=== PATIENT | female | born 1970 | race Caucasian/White ===

== ENCOUNTER → 2017-02-11 | Outpatient (CLI) | payer OTHER ==
--- NOTE | 2017-02-11 23:15 | ELECTROENCEPHALOGRAPH REPORT ---
REQUESTING PHYSICIAN: Derik Bravo MD CLINICAL DIAGNOSES: Spasms, question seizures. ELECTROENCEPHALOGRAM DIAGNOSIS: Essentially normal during wakefulness. DESCRIPTION OF TRACING: This EEG was performed in the laboratory and is of excellent technical quality with few or no muscle movement artifacts. Simultaneous video analysis of patient movement and behavior was obtained. Photic stimulation was performed. Hyperventilation was not. Drowsiness and light sleep were not recorded. During wakefulness, there is evidence for normal appearing background rhythm in the alpha range of up to 10 Hz of maximum frequency and 30 microvolts of maximum amplitude. This is maximum posterior head regions and bilaterally symmetrical. Polymorphic mid frequency theta activity of modest voltage is seen over all head regions without clear focal or regional predominance. Anterior head region maximum bilaterally symmetrical low voltage fast activity in the beta range is present. Photic stimulation provokes modest response at most flash frequencies. At no time during the waking tracing is there evidence for potentially epileptogenic activity in the form of polyspike or spike wave bursts, focal sharp waves and focal spikes. INTERPRETATION: This EEG is essentially normal during wakefulness without evidence for focal or generalized encephalopathy and without evidence for potentially epileptogenic activity.
== END | disposition home or self-care (01) ==
LOC: C.NEUR 14:20
PROVIDERS: ATTEND Family Medicine
DX: F10.20 Alcohol dependence, uncomplicated (principal)

== ENCOUNTER → 2017-12-23 | Outpatient (CLI) | payer OTHER ==
[~2017-12-23] MED LIST: HYDR-5688 PO
== END | disposition home or self-care (01) ==
LOC: C.RDSM 14:50
PROVIDERS: ATTEND Orthopaedic Surgery
DX: S42.301A Unspecified fracture of shaft of humerus, right arm, initial encounter for closed fracture (principal); X58.XXXA Exposure to other specified factors, initial encounter

== ENCOUNTER 2020-11-27 19:39 | Inpatient (IN) ==
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
[2020-11-27] MEDS ORDERED: MoRPHine SULFATE 4 MG/ML 1 ML CARP\\VIAL IV STA ×2 (20:14→21:20)
[2020-11-27] MEDS ORDERED: ONDANSETRON INJ 2 MG/ML 2 ML VIAL IV STA (20:14)
[2020-11-27] MEDS ORDERED: SODIUM CHLORIDE 0.9% 1000ML 500 ML IV ONE (20:35)
[2020-11-27 20:38] LABS: Basophils # (auto) 0.05 K/uL (0-0.2); Eosinophils # (auto) 0.11 K/uL (0-0.5); Eosinophils % (auto) 2.3 %; Hematocrit (blood only) 38.4 % (37-47); Hemoglobin 13.2 g/dL (12.0-16.0); Immature Granulocytes # (auto) 0.01 K/uL (0.00-0.02); Immature Granulocytes % (auto) 0.2 %; Lymphocytes # (auto) 1.16 K/uL (1.2-3.4); Lymphocytes % (auto) 23.9 %; Mean Corpuscular Hemoglobin 33.5 pg (25-34); Mean Corpuscular Hgb Conc 34.4 g/dL (32-36); Mean Corpuscular Volume 97.5 fL (80-100); Mean Platelet Volume 10.2 fL (7.4-10.4); Monocytes # (auto) 0.46 K/uL (0.11-0.59); Monocytes % (auto) 9.5 %; Neutrophils # (auto) 3.07 K/uL (1.4-6.5); Neutrophils % (auto) 63.1 %; Platelet Count 128 K/uL (130-400); RDW Standard Deviation 46.4 fL (36.4-46.3); Red Blood Count 3.94 M/uL (4.2-5.4); White Blood Count 4.86 K/uL (4.8-10.8)
[2020-11-27 20:51] LABS: INR 1.1 (0.9-1.1); Partial Thromboplastin Ratio 1.1; Partial Thromboplastin Time 29.8 Seconds (21.0-31.0); Prothrombin Time 10.9 Seconds (9.0-12.0)
[2020-11-27 20:58] LABS: Albumin Level 4.1 gm/dl (3.4-5.0); Calcium 9.2 mg/dl (8.5-10.1); Creatinine Clr Calc Pharmacy 94.3 ml/min; Est GFR (African American) 132.6 ml/min; Est GFR (Non-African American) 114.4 ml/min; Potassium 3.8 mmol/L (3.5-5.1)
[2020-11-27 21:01] LABS: Bilirubin,Total 0.4 mg/dl (0.2-1); Globulin 4.3 gm/dl (2.5-4.0); Total Protein 8.4 gm/dl (6.4-8.2)
[2020-11-27 22:26] LABS: Appearance Urine Clear (Clear); Bacteria Urine Automated Negative (Negative); Bilirubin Urine Negative (Negative); Blood Urine Negative (Negative); Color Urine Yellow; Glucose Urine UA Negative (Negative); Ketones Urine Negative (Negative); Leukocyte Esterase Urine Negative (Negative); Nitrite Urine Negative (Negative); Protein Urine 1+ (Negative); RBC Urine Automated 0-4 /hpf (0-4); Specific Gravity Urine 1.006 (1.000-1.030); Urobilinogen Urine Negative (Negative); WBC Urine Automated 0 /hpf (0-5)
[2020-11-28] MEDS ORDERED: HYDROmorphone INJ 0.5 MG/0.5 ML SYR ONE (00:26)
[2020-11-28] MEDS ORDERED: ATIVAN IV ALCOHOL WITHDRAWL IV PRN (01:01)
[2020-11-28] MEDS ORDERED: XOPENEX/ATROVENT 1.25mg/0.5MG NEB COMBO NEB PRN (01:01)
[2020-11-28] MEDS ORDERED: GABAPENTIN 800MG ALCOHOL WITHDRAWAL LOAD PO STA (01:01)
[2020-11-28] MEDS ORDERED: IPRATROPIUM BROMIDE NEB SOLN 0.02% 2.5 ML VIAL INH PRN (01:01)
[2020-11-28] MEDS ORDERED: POLYETHYLENE (MIRALAX) 17 GM PACK PO PRN (01:01)
[2020-11-28] MEDS ORDERED: LORazepam 1 MG/2 ML VIAL IV PRN (01:01)
[2020-11-28] MEDS ORDERED: LEVALBUTEROL 1.25MG/0.5ML NEB INH PRN (01:01)
[2020-11-28] MEDS ORDERED: ONDANSETRON INJ 2 MG/ML 2 ML VIAL IV PRN ×3 (01:01→14:54)
[2020-11-28] MEDS ORDERED: NITROGLYCERIN SL 0.4 MG/TAB TAB SL PRN (01:01)
[2020-11-28] MEDS ORDERED: LORazepam 3 MG/6 ML VIAL IV PRN (01:01)
[2020-11-28] MEDS ORDERED: GABAPENTIN 400 MG CAP PO ONE (01:15)
[2020-11-28] MEDS ORDERED: MULTI-VITAMIN INFUSION 10 ML, THIAMINE HCL 100 MG, FOLIC ACID 1 MG in SODIUM CHLORIDE 0... IV ONE (01:30)
[2020-11-28] MEDS: busPIRone 5 MG TAB PO SCH ×3 (01:45→21:03)
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
[2020-11-28] MEDS: HYDROmorphone INJ 0.5 MG/0.5 ML SYR IV PRN ×3 (03:21→22:35)
[2020-11-28] MEDS: D5W AND NSS 1,000 ML IV SCH ×2 (04:17→15:20)
[2020-11-28 06:06] LABS: Amphetamines+Metham, Urine Neg (Neg); Barbiturates, Urine Neg (Neg); Benzodiazepine, Urine Neg (Neg); Cocaine, Urine Neg (Neg); MDMA (Ecstacy), Urine Neg (Neg); Methadone, Urine Neg (Neg); Opiate, Urine Pos (Neg); Phencyclidine, Urine Neg (Neg)
[2020-11-28 06:45] LABS: Basophils # (auto) 0.02 K/uL (0-0.2); Basophils % (auto) 0.2 %; Eosinophils # (auto) 0.01 K/uL (0-0.5); Eosinophils % (auto) 0.1 %; Hematocrit (blood only) 33.8 % (37-47); Hemoglobin 11.3 g/dL (12.0-16.0); Immature Granulocytes # (auto) 0.03 K/uL (0.00-0.02); Immature Granulocytes % (auto) 0.3 %; Lymphocytes # (auto) 0.75 K/uL (1.2-3.4); Lymphocytes % (auto) 7.4 %; Mean Corpuscular Hemoglobin 33.2 pg (25-34); Mean Corpuscular Hgb Conc 33.4 g/dL (32-36); Mean Corpuscular Volume 99.4 fL (80-100); Mean Platelet Volume 10.1 fL (7.4-10.4); Monocytes # (auto) 0.83 K/uL (0.11-0.59); Monocytes % (auto) 8.2 %; Neutrophils # (auto) 8.54 K/uL (1.4-6.5); Neutrophils % (auto) 83.8 %; Platelet Count 113 K/uL (130-400); RDW Coefficient of Variation 13.1 % (11.5-14.5); RDW Standard Deviation 47.9 fL (36.4-46.3); White Blood Count 10.18 K/uL (4.8-10.8)
[2020-11-28 06:51] LABS: Albumin Level 3.7 gm/dl (3.4-5.0); BUN Creatinine Ratio 7.6 (10-20); Bilirubin Direct 0.2 mg/dl (0-0.2); Calcium 8.3 mg/dl (8.5-10.1); Creatinine Clr Calc Pharmacy 102.6 ml/min; Est GFR (African American) 139.5 ml/min; Est GFR (Non-African American) 120.4 ml/min; Magnesium 1.6 mg/dl (1.8-2.4); Potassium 3.6 mmol/L (3.5-5.1)
[2020-11-28 06:54] LABS: Bilirubin,Total 0.6 mg/dl (0.2-1); Total Protein 7.5 gm/dl (6.4-8.2)
--- NOTE | 2020-11-28 07:30 | Anesthesiology Consultation ---
Date of Service November 28, 2020 Assessment & Plan (1) Encounter for pre-operative examination: Chart Review Chart Review: Acceptable Risk for Surgery History Surgery Operation Date: 11/28/20 11:55 Proposed Procedures p Left Short Troch Nailing - Aries Reyes DO Height/Weight Height: 5 ft 1 in Weight: 40.1 kg Allergies Allergy/AdvReac Type Severity Reaction Status Date / Time No Known Allergies Allergy Verified 11/27/20 19:41 Medications Home Medications Medication Instructions Recorded Confirmed Last Taken budesonide-formoterol [Symbicort] 1 puff INHALATION UD 11/27/20 11/27/20 Unknown buspirone 10 mg PO BID 11/27/20 11/27/20 Unknown montelukast 10 mg PO DAILY 11/27/20 11/27/20 Unknown Active Medications Generic Name Dose Route Start Last Admin Trade Name Freq PRN Reason Stop Dose Admin Buspirone HCl 10 mg 11/28/20 01:01 11/28/20 01:45 Buspirone 5 Mg Tab PO 12/28/20 01:00 10 mg BID ANABELLE Administration Hydromorphone HCl 0.5 mg 11/28/20 01:01 11/28/20 03:21 Hydromorphone Inj 0.5 Mg/0.5 Ml Syr IV 12/12/20 01:00 0.5 mg Q3H PRN Administration Pain Dextrose/Sodium Chloride 1,000 mls @ 100 mls/hr 11/28/20 03:30 11/28/20 04:17 D5w And Nss IV 12/28/20 03:29 100 mls/hr .Q10H ANABELLE Administration Past Medical History Medical History (Updated 11/28/20 @ 07:29 by Marvel Zhou MD) Alcohol abuse Thrombocytopenia Past Surgical History Surgical History (Updated 11/28/20 @ 07:29 by Marvel Zhou MD) No significant past surgical history Social History Smoking Status: Heavy tobacco smoker tobacco type: cigarettes Do You Dip or Chew Tobacco: No Hx Alcohol Use: Yes Alcohol type: beer alcohol intake frequency: 3 or more drinks per day Hx Substance Use: No Physical Exam Vital Signs Last Vital Signs Temp 36.8 C 11/28/20 03:45 Pulse 98 H 11/28/20 03:45 Resp 20 11/28/20 03:45 BP 124/73 11/28/20 03:45 Pulse Ox 95 11/28/20 03:45 Testing Laboratory Results 11/28/20 05:56 11/28/20 05:56 PT 10.9 Seconds (9.0-12.0) 11/27/20 20:25 INR 1.1 (0.9-1.1) 11/27/20 20:25 APTT 29.8 Seconds (21.0-31.0) 11/27/20 20:25 Urine Color Yellow 11/27/20 21:40 Urine Appearance Clear (Clear) 11/27/20 21:40 Urine pH 5.0 (4.5-7.5) 11/27/20 21:40 Ur Specific [place] 1.006 (1.000-1.030) 11/27/20 21:40 Urine Protein 1+ (Negative) H 11/27/20 21:40 Urine Glucose (UA) Negative (Negative) 11/27/20 21:40 Urine Ketones Negative (Negative) 11/27/20 21:40 Urine Nitrite Negative (Negative) 11/27/20 21:40 Ur Leukocyte Esterase Negative (Negative) 11/27/20 21:40 Urine WBC (Auto) 0 /hpf (0-5) 11/27/20 21:40 Urine RBC (Auto) 0-4 /hpf (0-4) 11/27/20 21:40 U Hyaline Cast (Auto) 1-5 /lpf (0-5) 11/27/20 21:40 U Epithel Cells (Auto) 10-20 /lpf (0-5) H 11/27/20 21:40 Urine Bacteria (Auto) Negative (Negative) 11/27/20 21:40 Blood Type O Positive 11/27/20 20:25 Antibody Screen NEGATIVE 11/27/20 20:25
[2020-11-28 07:35] LABS: Folate (Folic Acid) > 20.00 ng/ml (>5.38); Vitamin B12 555 pg/ml (193-986)
--- NOTE | 2020-11-28 07:37 | XRay Report ---
XR hip LT 2V w pelvis CLINICAL HISTORY: left hip pain. Left hip injury. COMPARISON STUDY: None. FINDINGS: Angulated and slightly displaced intertrochanteric fracture within the proximal left femur. No dislocation. The right hip and pelvic bones appear intact. IMPRESSION: Intertrochanteric fracture within the proximal left femur. ACT 112: Negative or not required by law. Electronically signed by: Guero Rico M.D. 11/28/2020 7:36 AM
--- NOTE | 2020-11-28 07:41 | XRay Report ---
XR chest 1V portable HISTORY: Preop. Left hip fracture. History of COPD. COMPARISON: Chest 12/08/2015. FINDINGS: The lungs are clear. The heart is normal in size. No pneumothorax. No pleural effusions. Th e lungs are mildly hyperexpanded. IMPRESSION: No acute process. ACT 112: Negative or not required by law. Electronically signed by: Guero Rico M.D. 11/28/2020 7:39 AM
[2020-11-28] MEDS ORDERED: ceFAZolin 1000MG 1,000 MG/7.5 ML SYR IV SCH (09:30)
[2020-11-28] MEDS: GABAPENTIN 400 MG CAP PO SCH ×3 (09:43→21:39)
[2020-11-28] MEDS: MONTELUKAST SODIUM 10 MG TABLET PO SCH (09:44)
[2020-11-28] MEDS: FLUTICASONE/VILANTEROL 100/25MCG 14 PUFFS/INHALER INH SCH (09:44)
[2020-11-28] MEDS: FOLIC ACID 1 MG in SYRINGE 9.8 ML IV SCH (09:45)
[2020-11-28] MEDS: THIAMINE HCL 100 MG in SYRINGE 9 ML IV SCH (09:45)
[2020-11-28] MEDS: CEROVITE ADV FORMULA TAB PO SCH (09:45)
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
[2020-11-28] MEDS ORDERED: fentaNYL citrate 100 MCG/2 ML VIAL ONE (11:36)
[2020-11-28] MEDS ORDERED: MIDAZOLAM HCL 1 MG/ML 2ML VIAL ONE (11:36)
[2020-11-28] MEDS ORDERED: LIDOCAINE 2% 2 ML VIAL/AMP(20MG/ML) INFIL ONE (11:36)
[2020-11-28] MEDS ORDERED: PROPOFOL IV EMULSION 10 MG/ML 20 ML VIAL IV ONE (11:37)
[2020-11-28] MEDS ORDERED: ROCURONIUM BROMIDE 10 MG/ML 5 ML VIAL IV ONE ×2 (11:37→13:11)
[2020-11-28] MEDS ORDERED: LIDOCAINE/EPINEPHRINE 1% 20 ML VIAL ONE (12:05)
[2020-11-28] MEDS ORDERED: BUPIVACAINE 0.5 % 5 MG/1 ML MPF 30ML VIAL ONE (12:05)
[2020-11-28] MEDS ORDERED: ONDANSETRON INJ 2 MG/ML 2 ML VIAL ONE (13:10)
[2020-11-28] MEDS ORDERED: LARYING-O-JET KIT (LTA) ONE (13:10)
[2020-11-28] MEDS ORDERED: DEXAMETHASONE SOD INJ 4 MG/ML VIAL ONE (13:11)
[2020-11-28] MEDS ORDERED: PHENYLEPHRINE 100MCG/ML 5ML SYR ONE (13:11)
[2020-11-28] MEDS ORDERED: GLYCOPYRROLATE 0.2 MG/ML VIAL ONE (13:38)
[2020-11-28] MEDS ORDERED: NEOSTIGMINE METHYLSULFATE 1 MG/ML 10ML VIAL ONE (13:38)
--- NOTE | 2020-11-28 13:52 | Post Operative Brief Note ---
Immediate Post Op Note v1 Date of Surgery November 28, 2020 Pre & Post Diagnosis Operation Date: 11/28/20 09:40 <No data on this case meets the specified criteria> Operation Date: 11/28/20 11:55 Pre-Op Diagnosis: Left Intratrochanteric Hip Fracture Post-Op Diagnosis: Left Intratrochanteric Hip Fracture I identified the patient and participated in the time-out.: Yes Procedure Operation Date: 11/28/20 09:40 <No data on this case meets the specified criteria> Operation Date: 11/28/20 11:55 Actual Procedures p Insertion of Short Intratrochanteric Nail Left Hip Fracture(Left) - Aries Reyes DO Surgeon Endy Jaquez MD Slot Floor Supervisor VENITA Lee PA-C (No fellow avail) Estimated Blood Loss 25 Findings Consistent with Post-Op Diagnosis Fluids 1000 cc Drains Castillo Catheter Anesthesia Type General Complications none
--- NOTE | 2020-11-28 13:54 | Operative Report ---
Post Operative Report Pre & Post Diagnosis Operation Date: 11/28/20 09:40 <No data on this case meets the specified criteria> Operation Date: 11/28/20 11:55 Pre-Op Diagnosis: Left Intratrochanteric Hip Fracture Post-Op Diagnosis: Left Intratrochanteric Hip Fracture I identified the patient and participated in the time-out.: Yes Procedure Operation Date: 11/28/20 09:40 <No data on this case meets the specified criteria> Operation Date: 11/28/20 11:55 Actual Procedures p Insertion of Short Intratrochanteric Nail Left Hip Fracture(Left) - Aries Reyes DO Surgeon Endy Jaquez MD Production Engineer VENITA Lee PA-C (No fellow avail) Estimated Blood Loss 25 Findings See Below Displaced 3-part left intratrochanteric hip fracture Specimens n/a Drains Castillo Anesthesia Type General Complications none Indications The patient is a 50 year old female who sustained a left hip fracture from a ground level fall. The patients treatment options of conservative versus surgical intervention were discussed. Since the patient was an ambulatory prior to the injury and to avoid the risks of bed sores, pulmonary complications, and to give the best chance for ambulation, I recommended surgery. The patient understands the risks of surgery, which include but are not limited to: bleeding, infection, re-operation, damage to nerves and arteries, continued pain, failure of the hardware, mal-union, non-union, DVT, and . In addition the patient is aware of the 20-30% morbidity associated with hip fracture for up to 1 year following a hip fracture. The patient understands all of these instructions and explanations, all of their questions have been satisfactorily addressed. The patient has elected to proceed with surgery and the informed consent was signed. Description of Procedure VENITA Lee PA-C is assisting with positioning and closure due to fellow not available. IMPLANTS: 1) 11 MM SHORT TROCH NAIL (SYNTHES). 2) 11 X 95 MM HELICAL SCREW. 3) 5 X 36 MM LOCKING SCREW. PROCEDURE: The patient was taken to the Operating Room and placed in the supine position on the fracture table after spinal anesthesia was administered. A multidisciplinary time-out was performed identifying my initials on the left lower limb as the correct and operative limb. Prior to the incision being made, 1 gram of intravenous Ancef was given. Fluoroscopy was brought in to ensure adequate x-rays images could be obtained. A reduction was performed with traction, adduction, and internal rotation of the operative limb. Once this was confirmed with Fluro, the left lower extremity was prepped in the standard fashion. The trochanter was marked as was the planned incision and trajectory of the helical screw. The incisions were injected with a 50:50 mixture of 1% Lidocaine plain and 0.5% Bupivacaine with epinephrine for a total of 10cc. The planned incision proximal to the greater trochanter was made and carried down through the Tensor Fascia Cary to expose the tip of the greater trochanter and the starting position. A starting guide wire was placed and the starting reamer was used to create the entry hole for the short implant. A size 11 was selected. The implant was then inserted without difficulty. Small second and third incisions were made for placement of the helical blade and distal locking screw. These were placed through the aiming guide in the standard fashion. The Helical blade was locked in place. The traction was released. Final x-rays were obtained showing TAD of less than 25mm. The wounds were copiously irrigated. The Tensor Fascia Cary was closed with 0 Vicryl. The subcutaneous tissue was closed with 3-0 Vicryl. The skin was closed with ZipLine and Shield. The incisions were covered with 4x4s and Tegaderm. The patient was transfer to her hospital bed and taken to the PACU in stable condition. The sponge and needle counts were correct. POST-OP INSTRUCTIONS: The patient was admitted to Telemetry. The patient will be WBAT with a walker. The patient will be seen by PT/OT. Her labs will be checked in the am. DVT prophylaxis will be with TEDs, mechanical devices and ASA 81 mg PO BID for 6 weeks. I attest to the content of the Intraoperative Record and any orders documented therein. Any exceptions are noted below.
[2020-11-28] MEDS ORDERED: KETOROLAC 30 MG/ML VIAL ONE (13:56)
[2020-11-28] MEDS ORDERED: NALOXONE HCL 0.4 MG/1 ML VIAL/CARP IV PRN (14:23)
--- NOTE | 2020-11-28 14:23 | Operative Report ---
Post Operative Report Pre & Post Diagnosis Operation Date: 11/28/20 09:40 <No data on this case meets the specified criteria> Operation Date: 11/28/20 11:55 Pre-Op Diagnosis: Left Intratrochanteric Hip Fracture Post-Op Diagnosis: Left Intratrochanteric Hip Fracture I identified the patient and participated in the time-out.: Yes Procedure Operation Date: 11/28/20 09:40 <No data on this case meets the specified criteria> Operation Date: 11/28/20 11:55 Actual Procedures p Insertion of Short Intratrochanteric Nail Left Hip Fracture(Left) - Aries Reyes DO Surgeon Endy Jaquez MD Estate Planning Attorney VENITA Lee PA-C (No fellow avail) Estimated Blood Loss 25 Findings Consistent with Post-Op Diagnosis Specimens none Complications none Disposition Accompanied Patient To Recovery: No Disposition: Recovery Room Description of Procedure I was present during the entire case assisting with positioning, prepping, draping, wound retraction, wound closure and dressing application. No fellow present. Please see Dr. Jaquez procedure note for specifics of the case. I attest to the content of the Intraoperative Record and any orders documented therein. Any exceptions are noted below.
--- NOTE | 2020-11-28 14:27 | Fluoroscopy Report ---
FL hip LT 2-3V HISTORY: 50 years-old Female LEFT TROCHNAIL acute intertrochanteric fracture of the left femur COMPARISON: Pelvis and left hip radiographs 11/27/2020 TECHNIQUE: 3 spot fluoroscopic images of the left hip were obtained utilizing 77.6 seconds fluoroscop y time FINDINGS: Status post placement of an intratrochanteric canal with medullary janet and distal cannulated screw fi xating the acute intertrochanteric fracture of the left femur. There is improved near-anatomic alignm ent. No unexpected opaque foreign body. IMPRESSION: Fluoroscopic assistance as above. ACT 112: Negative or not required by law. The above report was generated using voice recognition software. It may contain grammatical, syntax o r spelling errors. Electronically signed by: Chan Burns M.D. 11/28/2020 2:25 PM
[2020-11-28] MEDS ORDERED: SODIUM CHLORIDE 0.9% 1000ML 1,000 ML IV SCH (14:30)
[2020-11-28] MEDS ORDERED: ALUMINUM/MAGNESIUM SUSP 30 ML UDC PO PRN (14:31)
[2020-11-28] MEDS ORDERED: METOCLOPRAMIDE HCL INJ 5 MG/ML 2 ML VIAL IV PRN (14:31)
[2020-11-28] MEDS ORDERED: fentaNYL citrate 100 MCG/2 ML VIAL IV PRN (14:54)
[2020-11-28] MEDS ORDERED: ePHEDrine sulfate 50 MG/ML AMP IV PRN (14:54)
[2020-11-28] MEDS ORDERED: ATROPINE SULFATE 0.1 MG/ML 10ML SYR IV PRN (14:54)
--- NOTE | 2020-11-28 14:55 | Anesthesiology Progress Note ---
Date of Service November 28, 2020 Anesthesia Post Procedure Vital Signs Vital Signs: Temp Pulse Pulse Pulse Resp BP BP 11/28/20 14:50 36.6 C 75 14 146/88 H 11/28/20 14:40 75 14 146/83 H 11/28/20 14:30 75 14 147/85 H 11/28/20 14:21 36.5 C 73 14 145/89 H 11/28/20 11:54 37.1 C 91 H 17 136/82 11/28/20 11:39 38.6 C H 104 H 20 151/86 H 11/28/20 08:00 91 H 11/28/20 07:53 37.3 C 97 H 17 145/79 H 11/28/20 03:45 36.8 C 98 H 20 124/73 11/28/20 03:14 90 11/28/20 01:04 36.9 C 103 H 18 98/58 L 11/28/20 01:01 36.9 C 103 H 18 98/58 L 11/28/20 00:33 82 92/50 L 11/27/20 23:55 83 87/55 L 11/27/20 22:18 79 16 94/56 L 11/27/20 21:08 86 18 126/72 11/27/20 20:36 89/57 L 11/27/20 19:50 37.2 C 101 H 24 157/94 H Pulse Ox 11/28/20 14:50 97 11/28/20 14:40 97 11/28/20 14:30 100 11/28/20 14:21 100 11/28/20 11:54 94 11/28/20 11:39 92 11/28/20 08:00 11/28/20 07:53 95 11/28/20 03:45 95 11/28/20 03:14 11/28/20 01:04 92 11/28/20 01:01 92 11/28/20 00:33 100 11/27/20 23:55 100 11/27/20 22:18 100 11/27/20 21:08 96 11/27/20 20:36 11/27/20 19:50 Pain Intensity Left Hip: Pain Intensity: 10 Transfer of Care Handoff Completed per policy Notes Mental Status: alert / awake / arousable and participated in evaluation Patient Amnestic to Procedure: Yes Nausea / Vomiting: adequately controlled Pain: adequately controlled Airway Patency, RR, SpO2: stable & adequate BP & HR: stable & adequate Hydration State: stable & adequate Anesthetic Complications: no major complications apparent and Pt Satisfied with anesthetic care
--- NOTE | 2020-11-28 15:07 | XRay Report ---
XR hip LT min 2V HISTORY: 50 years-old Female Post-Operative implant position acute intertrochanteric fracture of the left femur COMPARISON: Pelvis and left hip radiographs 11/27/2020 TECHNIQUE: 2 views of the left hip FINDINGS: Status post placement of an intratrochanteric nail with medullary janet fixating the acute intertrochan teric fracture. The lesser trochanteric fracture fragment is mildly displaced medially. Mild lateral displacement of the femoral shaft has improved from comparison. Expected postoperative soft tissue sw elling with deep tissue air. No unexpected opaque foreign body. IMPRESSION: Status post ORIF of the acute intertrochanteric fracture of the left femur. ACT 112: Negative or not required by law. The above report was generated using voice recognition software. It may contain grammatical, syntax o r spelling errors. Electronically signed by: Chan Burns M.D. 11/28/2020 3:06 PM
--- NOTE | 2020-11-28 17:40 | Electrocardiogram Report ---
Test Reason : Blood Pressure : / mmHG Vent. Rate : 087 BPM Atrial Rate : 087 BPM P-R Int : 154 ms QRS Dur : 092 ms QT Int : 378 ms P-R-T Axes : 075 087 060 degrees QTc Int : 454 ms Poor data quality, interpretation may be adversely affected Normal sinus rhythm Possible Left atrial enlargement Incomplete right bundle branch block Nonspecific T wave abnormality Abnormal ECG When compared with ECG of 08-DEC-2015 09:27, Incomplete right bundle branch block is now Present Confirmed by Gaurang Stevens ([id number]) on 11/28/2020 5:39:48 PM Referred By: REFERRED SELF Confirmed By:Chris Stevens
--- NOTE | 2020-11-28 17:41 | Electrocardiogram Report ---
Test Reason : Blood Pressure : / mmHG Vent. Rate : 097 BPM Atrial Rate : 097 BPM P-R Int : 142 ms QRS Dur : 082 ms QT Int : 368 ms P-R-T Axes : 080 070 057 degrees QTc Int : 467 ms Normal sinus rhythm Incomplete right bundle branch block Nonspecific ST abnormality Abnormal ECG When compared with ECG of 27-NOV-2020 21:01, (unconfirmed) No significant change was found Confirmed by Gaurang Stevens ([id number]) on 11/28/2020 5:41:40 PM Referred By: REFERRED SELF Confirmed By:Chris Stevens
--- NOTE | 2020-11-28 18:00 | Hospitalist Progress Note ---
Date of Service November 28, 2020 Assessment & Plan (1) Fracture of hip, left, closed: s/p ORIF of left hip tolerated the procedure well appreciate input from Orthopedics cont to monitor H&H in am to assess acute blood loss anemia post op ordered for PT/OT (2) Alcohol abuse: admitted with ETOH intoxication , blood alcohol level > 200 , on gabapentin ETOH withdrawl protocol high risk for severe ETOH withdrwal /DT - monitor in PCU Admission and Anticipated Discharge Date Admission Date: November 27, 2020 Subjective follow up visit for left hip fracture pt underwent left hip ORIF surgery seen at bedside post op still groggy from anesthesia vitals stable , on 2 L o2 via nasal canula for post op status afebrile patient wakes up to voice , asks for dinner tray as she is hungry no sign of agitation or confusion , no s/s of ETOH withdrawal Review of Systems Review of Systems: All systems reviewed & are unremarkable except as noted in HPI & below Physical Exam Constitutional: WD/WN, vitals as above + thin Eyes: + anicteric sclerae ENMT: external ear and nose normal, oropharynx normal Neck: normal visual inspection Respiratory: normal respiratory effort, lungs clear to auscultation Cardiovascular: RRR, no murmur, no edema Gastrointestinal (Abdomen): Inspection/Auscultation: normal bowel sounds Percussion/Palpation: abdomen soft; abdomen nontender Musculoskeletal: Hip: + hip abnormal to inpsection (left hip fracture s/p surgery ) Neurologic: PERRL, EOMI, accommodation nl, no face palsy, no dysarthria Psychiatric: Orientation: oriented to person and oriented to place; + not alert (sedation due to post op status , wakes up to voice ) Results & Data Results & Data ([facility]) Vital Signs (Past 12 Hours) Vital Signs Temp Pulse Pulse Pulse Resp BP Pulse Ox 11/28/20 17:00 96 H 11/28/20 16:21 75 16 127/85 96 11/28/20 15:42 76 16 139/86 98 11/28/20 15:15 36.6 C 71 16 136/85 100 11/28/20 14:50 36.6 C 75 14 146/88 H 97 11/28/20 14:40 75 14 146/83 H 97 11/28/20 14:30 75 14 147/85 H 100 11/28/20 14:24 11/28/20 14:21 36.5 C 73 14 145/89 H 100 11/28/20 11:54 37.1 C 91 H 17 136/82 94 11/28/20 11:39 38.6 C H 104 H 20 151/86 H 92 11/28/20 08:00 91 H 11/28/20 07:53 37.3 C 97 H 17 145/79 H 95 Pulse Ox 11/28/20 17:00 11/28/20 16:21 11/28/20 15:42 11/28/20 15:15 11/28/20 14:50 11/28/20 14:40 11/28/20 14:30 11/28/20 14:24 92 11/28/20 14:21 11/28/20 11:54 11/28/20 11:39 11/28/20 08:00 11/28/20 07:53 (1) Fracture of hip, left, closed Encounter type: initial encounter Qualified Code(s): S72.002A - Fracture of unspecified part of neck of left femur, initial encounter for closed fracture
[2020-11-28] MEDS: DOCUSATE SODIUM 100 MG CAP PO SCH (21:04)
[2020-11-28] MEDS: oxyCODONE HCL SOLN 5 MG/5 ML UDC PO PRN (21:04)
[2020-11-28] MEDS: ASPIRIN 81 MG ECTAB PO SCH (21:39)
[2020-11-29] MEDS: oxyCODONE HCL SOLN 5 MG/5 ML UDC PO PRN ×3 (06:15→19:40)
[2020-11-29] MEDS: GABAPENTIN 400 MG CAP PO SCH ×2 (06:16→13:49)
[2020-11-29 06:30] LABS: Hematocrit (blood only) 25.5 % (37-47); Hemoglobin 8.5 g/dL (12.0-16.0); Mean Corpuscular Hemoglobin 33.1 pg (25-34); Mean Corpuscular Hgb Conc 33.3 g/dL (32-36); Mean Corpuscular Volume 99.2 fL (80-100); RDW Coefficient of Variation 12.9 % (11.5-14.5); RDW Standard Deviation 46.7 fL (36.4-46.3); Red Blood Count 2.57 M/uL (4.2-5.4); White Blood Count 8.44 K/uL (4.8-10.8)
[2020-11-29 06:54] LABS: Basophils # (auto) 0.01 K/uL (0-0.2); Basophils % (auto) 0.1 %; Eosinophils # (auto) 0.01 K/uL (0-0.5); Eosinophils % (auto) 0.1 %; Immature Granulocytes # (auto) 0.02 K/uL (0.00-0.02); Immature Granulocytes % (auto) 0.2 %; Lymphocytes # (auto) 1.59 K/uL (1.2-3.4); Lymphocytes % (auto) 18.8 %; Mean Platelet Volume 10.6 fL (7.4-10.4); Monocytes % (auto) 10.7 %; Neutrophils # (auto) 5.91 K/uL (1.4-6.5); Neutrophils % (auto) 70.1 %; Platelet Count 74 K/uL (130-400); Platelet Estimate Decreased (Normal)
[2020-11-29 07:16] LABS: BUN Creatinine Ratio 10.1 (10-20); Calcium 8.6 mg/dl (8.5-10.1); Creatinine Clr Calc Pharmacy 86.3 ml/min; Est GFR (African American) 125.4 ml/min; Est GFR (Non-African American) 108.2 ml/min; Potassium 3.6 mmol/L (3.5-5.1)
[2020-11-29] MEDS: THIAMINE HCL 100 MG in SYRINGE 9 ML IV SCH (08:39)
[2020-11-29] MEDS: FOLIC ACID 1 MG in SYRINGE 9.8 ML IV SCH (08:39)
[2020-11-29] MEDS: HYDROmorphone INJ 0.5 MG/0.5 ML SYR IV PRN (08:40)
[2020-11-29] MEDS: busPIRone 5 MG TAB PO SCH ×2 (08:41→20:32)
[2020-11-29] MEDS: DOCUSATE SODIUM 100 MG CAP PO SCH ×2 (08:41→20:31)
[2020-11-29] MEDS: ASPIRIN 81 MG ECTAB PO SCH ×2 (08:41→20:32)
[2020-11-29] MEDS: CEROVITE ADV FORMULA TAB PO SCH (08:41)
[2020-11-29] MEDS: MONTELUKAST SODIUM 10 MG TABLET PO SCH ×3 (08:41→20:32)
[2020-11-29] MEDS: FLUTICASONE/VILANTEROL 100/25MCG 14 PUFFS/INHALER INH SCH (08:42)
[2020-11-29] MEDS ORDERED: Nursing to Pharmacy Communication SCH (10:00)
--- NOTE | 2020-11-29 10:04 | Orthopedic Progress Note ---
Date of Service November 29, 2020 Assessment & Plan (1) Fracture of right hip requiring operative repair: POD # 1 s/p IM rodding left hip fracture. Weightbearing as tolerated with walker assistance PT/OT Discharge planning with case management Ice with E Z wrap Pain control with p.o. medication DVT prophylaxis with aspirin 81 mg PO BID for 6 weeks, JANICE stockings for 3 weeks and SCDs while in hospital Primary care per medicine service We will continue to follow while an inpatient I, Dr. Jaquez, saw and examined the patient and discussed the management with my PA. I reviewed my PAs note and agree with the documented findings and the plan of care I developed. Admission and Anticipated Discharge Date Admission Date: November 27, 2020 Subjective This 50-year-old female is day 1 status post Intertrochanteric nailing of left femoral neck fracture. Patient states that her pain is only moderately alleviated with oral pain medication. She complains of most pain in her groin area. She states she is unable to lift her leg but has been able to transition from her bed to the bathroom with difficulty and assistance. She states that last night she was nauseated but that is resolved with some medication that she was provided. She denies chest pain, shortness of breath, fever, chills, sweats, lethargy or numbness or tingling in her left lower extremity. Review of Systems Review of Systems: All systems reviewed & are unremarkable except as noted in Subjective Physical Exam Physical Exam: Left hip: Dressings are clean dry and intact. Patient is unable to perform an active straight leg raise test but has no pain with passive elevation. Active knee range of motion is from 0 to 70 degrees and passive range of motion from 0-90 causes no pain. Patient is able to actively dorsi and plantarflex her foot. Her calf is soft supple and nontender to palpation. She does have tenderness to palpation over the groin and circumferentially around the incision sites. She is able to move the digits in all of her toes and depict light sensation to touch over the pads of these digits. She is neurovascularly intact in left lower extremity. Peripheral pulses 2+. Capillary fill is less than 2 seconds. Results & Data ([facility]) Vital Signs (Past 12 Hours) Vital Signs Temp Pulse Pulse Resp BP Pulse Ox 11/29/20 08:21 37.0 C 108 H 18 89/58 L 94 11/29/20 07:54 93 H 11/29/20 03:41 37.5 C 96 H 18 104/57 L 96 11/28/20 23:24 36.9 C 82 18 93/60 L 94 Laboratory Results 11/29/20 11/29/20 11/28/20 Range/Units 05:48 05:48 12:14 WBC 8.44 (4.8-10.8) K/uL RBC 2.57 L (4.2-5.4) M/uL Hgb 8.5 L (12.0-16.0) g/dL Hct 25.5 L (37-47) % MCV 99.2 (80-100) fL MCH 33.1 (25-34) pg MCHC 33.3 (32-36) g/dL RDW Std Deviation 46.7 H (36.4-46.3) fL RDW Coeff of [place]oy 12.9 (11.5-14.5) % Plt Count 74 L (130-400) K/uL MPV 10.6 H (7.4-10.4) fL Immature Gran % (Auto) 0.2 % Neut % (Auto) 70.1 % Lymph % (Auto) 18.8 % [place] % (Auto) 10.7 % Eos % (Auto) 0.1 % Baso % (Auto) 0.1 % Neut # (Auto) 5.91 (1.4-6.5) K/uL Lymph # (Auto) 1.59 (1.2-3.4) K/uL [place] # (Auto) 0.90 H (0.11-0.59) K/uL Eos # (Auto) 0.01 (0-0.5) K/uL Baso # (Auto) 0.01 (0-0.2) K/uL Immature Gran # (Auto) 0.02 (0.00-0.02) K/uL Platelet Estimate Decreased L (Normal) Sodium 132 L (136-145) mmol/L Potassium 3.6 (3.5-5.1) mmol/L Chloride 98 (98-107) mmol/L Carbon Dioxide 31 (21-32) mmol/L Anion Gap 3.0 (3-11) BUN 6 L (7-18) mg/dl Creatinine 0.58 L (0.6-1.2) mg/dl Est Cr Clr Drug Dosing 86.3 ml/min Est GFR ( Amer) 125.4 ml/min Est GFR (Non-Af Amer) 108.2 ml/min BUN/Creatinine Ratio 10.1 (10-20) Glucose 101 H (70-99) mg/dl Calcium 8.6 (8.5-10.1) mg/dl POC Ur Test NEG (NEG)
[2020-11-29] MEDS ORDERED: SODIUM CHLORIDE 0.9% 250 ML IV PRN (13:07)
[2020-11-29] MEDS: ACETAMINOPHEN 325 MG TAB PO PRN (15:03)
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
[2020-11-29 16:11] LABS: Blood Urine 1+ (Negative); RBC Urine Automated 0-4 /hpf (0-4)
--- NOTE | 2020-11-29 17:58 | Billing Data ---
Date of Service November 29, 2020 Coding Level of Care Code 70848 Inpt Consult Level 4
[2020-11-30] MEDS: GABAPENTIN 400 MG CAP PO SCH ×2 (00:40→12:50)
[2020-11-30] MEDS: LORazepam 2 MG/4 ML VIAL IV PRN ×3 (04:15→10:39)
[2020-11-30 05:10] LABS: Hemoglobin 7.3 g/dL (12.0-16.0); Mean Corpuscular Hgb Conc 33.2 g/dL (32-36); Mean Corpuscular Volume 99.5 fL (80-100); RDW Coefficient of Variation 12.3 % (11.5-14.5); RDW Standard Deviation 44.7 fL (36.4-46.3); Red Blood Count 2.21 M/uL (4.2-5.4); White Blood Count 6.72 K/uL (4.8-10.8)
[2020-11-30 05:12] LABS: Platelet Count 78 K/uL (130-400)
[2020-11-30 05:28] LABS: Giant Platelets 1+; Immature Granulocytes # (auto) 0.01 K/uL (0.00-0.02); Immature Granulocytes % (auto) 0.1 %; Lymphocytes # (auto) 0.29 K/uL (1.2-3.4); Lymphocytes % (auto) 4.3 %; Monocytes # (auto) 0.58 K/uL (0.11-0.59); Monocytes % (auto) 8.6 %; Neutrophils # (auto) 5.84 K/uL (1.4-6.5)
[2020-11-30 05:37] LABS: Albumin Globulin Ratio 0.9 (0.9-2); Albumin Level 3.3 gm/dl (3.4-5.0); BUN Creatinine Ratio 10.3 (10-20); Bilirubin,Total 1.2 mg/dl (0.2-1); Calcium 8.6 mg/dl (8.5-10.1); Creatinine Clr Calc Pharmacy 94.5 ml/min; Est GFR (African American) 129.2 ml/min; Est GFR (Non-African American) 111.5 ml/min; Globulin 3.5 gm/dl (2.5-4.0); Magnesium 1.5 mg/dl (1.8-2.4); Phosphorus 1.8 mg/dl (2.5-4.9); Potassium 2.9 mmol/L (3.5-5.1); Total Protein 6.8 gm/dl (6.4-8.2)
[2020-11-30] MEDS: NICOTINE 14 MG/24 HR PATCH TD SCH (06:41)
[2020-11-30] MEDS ORDERED: POTASSIUM PHOS 3 MMOL/1 ML INFUSION IV ONE (08:20)
[2020-11-30] MEDS ORDERED: POTASSIUM CHLORIDE CRTAB 20 MEQ TABCR PO ONE (08:30)
[2020-11-30] MEDS: FOLIC ACID 1 MG in SYRINGE 9.8 ML IV SCH (08:54)
[2020-11-30] MEDS: THIAMINE HCL 100 MG in SYRINGE 9 ML IV SCH (08:54)
[2020-11-30] MEDS ORDERED: POTASSIUM PHOSPHATE 21 MMOL in SODIUM CHLORIDE 0.9% 500 ML IV ONE (09:00)
[2020-11-30] MEDS: MAGNESIUM SULFATE / D5W 1 GM/100 ML BAG IV SCH ×2 (09:31→10:40)
--- NOTE | 2020-11-30 09:32 | Billing Data ---
Date of Service November 30, 2020 Disregard EN M coding document entered in error Coding Level of Care Code 45597 Inpt Consult Level 1 (25 - SIGNIFICANT, SEPARATELY IDENTIFIABLE )
[2020-11-30 09:37] LABS: Codeine Urine NEGATIVE ng/mL (<50); Hydrocodone Urine NEGATIVE ng/mL (<50); Hydromor Urine 546 ng/mL (<50); Morphine Urine 871 ng/mL (<50); Norhydrocodone Conf Ur NEGATIVE ng/mL (<50); Noroxycodone Urine NEGATIVE ng/mL (<50); Oxycodone Urine NEGATIVE ng/mL (<50); Oxymorph Urine NEGATIVE ng/mL (<50)
[2020-11-30] MEDS: DOCUSATE SODIUM 100 MG CAP PO SCH ×2 (09:54→21:00)
[2020-11-30] MEDS: ASPIRIN 81 MG ECTAB PO SCH ×2 (09:54→21:00)
[2020-11-30] MEDS: busPIRone 5 MG TAB PO SCH ×2 (09:54→21:00)
[2020-11-30] MEDS: CEROVITE ADV FORMULA TAB PO SCH (09:55)
[2020-11-30] MEDS: FLUTICASONE/VILANTEROL 100/25MCG 14 PUFFS/INHALER INH SCH (09:55)
--- NOTE | 2020-11-30 10:29 | Orthopedic Progress Note ---
Date of Service November 30, 2020 Assessment & Plan (1) Fracture of hip, left, closed: Plan: POD #2 - ORIF left hip She may be out of bed when medically safe, WBAT LLE Use walker or crutches to assist with ambulation. Ice to left thigh when at rest Dressings changed today - incision looks good. Reinforce PRN and change PRN. Allowed for full ROM left hip, left knee and left ankle. Will continue to follow. Follow up as scheduled with Dr. Jaquez on 12/14/20 at 10:00 a.m. Admission and Anticipated Discharge Date Admission Date: November 27, 2020 Subjective Patient is resting in bed, mildly responsive, currently in DT's and tachycardic. She does mumble yes when I asked to look at her hip. I think she's trying to tell me that she does have some pain with her left hip. Physical Exam Musculoskeletal: left hip incision clean dry and intact. Zip-line in place. No active drainage from incision, mild thigh swelling. No knee pain with palpation. No response with calf palpation. Alex stocking in place, no distal edema. Unable to get her to actively do left ankle ROM. Dorsalis pedis pulse 1+. No evidence of seroma, hematoma, or fracture blisters around incision or thigh. Results & Data ([facility]) Vital Signs (Past 12 Hours) Vital Signs Temp Pulse Pulse Resp BP Pulse Ox Pulse Ox 11/30/20 09:00 120 H 11/30/20 06:35 37.4 C 150 H 20 135/65 92 11/30/20 04:15 37.7 C H 133 H 23 124/72 95 11/30/20 01:00 93 11/30/20 00:20 37.3 C 114 H 20 119/72 93 Laboratory Results 11/30/20 11/30/20 11/30/20 Range/Units Unknown 04:27 04:27 WBC 6.72 (4.8-10.8) K/uL RBC 2.21 L (4.2-5.4) M/uL Hgb 7.3 L (12.0-16.0) g/dL Hct 22.0 L (37-47) % MCV 99.5 (80-100) fL MCH 33.0 (25-34) pg MCHC 33.2 (32-36) g/dL RDW Std Deviation 44.7 (36.4-46.3) fL RDW Coeff of Eloy 12.3 (11.5-14.5) % Plt Count 78 L (130-400) K/uL MPV 11.0 H (7.4-10.4) fL Immature Gran % (Auto) 0.1 % Neut % (Auto) 87.0 % Lymph % (Auto) 4.3 % Lamb % (Auto) 8.6 % Eos % (Auto) 0.0 % Baso % (Auto) 0.0 % Neut # (Auto) 5.84 (1.4-6.5) K/uL Lymph # (Auto) 0.29 L (1.2-3.4) K/uL Lamb # (Auto) 0.58 (0.11-0.59) K/uL Eos # (Auto) 0.00 (0-0.5) K/uL Baso # (Auto) 0.00 (0-0.2) K/uL Immature Gran # (Auto) 0.01 (0.00-0.02) K/uL Giant Platelets 1+ Sodium 130 L (136-145) mmol/L Potassium 2.9 L D (3.5-5.1) mmol/L Chloride 96 L (98-107) mmol/L Carbon Dioxide 30 (21-32) mmol/L Anion Gap 4.0 (3-11) BUN 6 L (7-18) mg/dl Creatinine 0.53 L (0.6-1.2) mg/dl Est Cr Clr Drug Dosing 94.5 ml/min Est GFR ( Amer) 129.2 ml/min Est GFR (Non-Af Amer) 111.5 ml/min BUN/Creatinine Ratio 10.3 (10-20) Glucose 118 H (70-99) mg/dl Calcium 8.6 (8.5-10.1) mg/dl Phosphorus 1.8 L (2.5-4.9) mg/dl Magnesium 1.5 L (1.8-2.4) mg/dl Total Bilirubin 1.2 H D (0.2-1) mg/dl AST 62 H (15-37) U/L ALT 37 (12-78) U/L Alkaline Phosphatase 79 (45-117) U/L Total Protein 6.8 (6.4-8.2) gm/dl Albumin 3.3 L (3.4-5.0) gm/dl Globulin 3.5 (2.5-4.0) gm/dl Albumin/Globulin Ratio 0.9 (0.9-2) Urine Blood (Negative) Urine RBC (Auto) (0-4) /hpf Nasal Screen MRSA (PCR) Negative (Negative) U Codeine Confrm GC/MS (<50) ng/mL Ur Morphine (GC/MS) (<50) ng/mL Ur Hydrocodone (GC/MS) (<50) ng/mL Ur Norhydrocodone (<50) ng/mL Ur Noroxycodone (<50) ng/mL Urine Oxycodone (GC/MS) (<50) ng/mL U Oxymorphone GC/MS (<50) ng/mL Ur Hydromorphone (GC/MS) (<50) ng/mL Drug Screen Comment Blood Type Blood Type Recheck Antibody Screen Crossmatch Transfusion React Date Transfusion React Time Tx React Symptoms Reaction Clerical Check Lab Clerical Err Check React Component Return Volume Returned Pre-Trans Blood Type Pre-Trans Vis Hemolysis Pre-Trans LUTHER (Negative) Pre-Trans LUTHER IgG (Negative) Pre-Trans LUTHER Poly (Negative) Pre-Trans LUTHER C3b, C3d (Negative) Post-Trans Blood Type Post-Tx Visible Hemolys Post-Trans LUTHER (Negative) Post-Trans LUTHER IgG (Negative) Post-Trans LUTHER Poly (Negative) Post-Trans LUTHER C3b, C3d (Negative) Post-Trans Ur Hemoglobin Reaction Path Interpret Transfusion Serv Com 11/29/20 11/29/20 11/29/20 Range/Units Unknown 15:56 05:48 WBC (4.8-10.8) K/uL RBC (4.2-5.4) M/uL Hgb (12.0-16.0) g/dL Hct (37-47) % MCV (80-100) fL MCH (25-34) pg MCHC (32-36) g/dL RDW Std Deviation (36.4-46.3) fL RDW Coeff of Eloy (11.5-14.5) % Plt Count (130-400) K/uL MPV (7.4-10.4) fL Immature Gran % (Auto) % Neut % (Auto) % Lymph % (Auto) % Lamb % (Auto) % Eos % (Auto) % Baso % (Auto) % Neut # (Auto) (1.4-6.5) K/uL Lymph # (Auto) (1.2-3.4) K/uL Lamb # (Auto) (0.11-0.59) K/uL Eos # (Auto) (0-0.5) K/uL Baso # (Auto) (0-0.2) K/uL Immature Gran # (Auto) (0.00-0.02) K/uL Giant Platelets Sodium (136-145) mmol/L Potassium (3.5-5.1) mmol/L Chloride (98-107) mmol/L Carbon Dioxide (21-32) mmol/L Anion Gap (3-11) BUN (7-18) mg/dl Creatinine (0.6-1.2) mg/dl Est Cr Clr Drug Dosing ml/min Est GFR ( Amer) ml/min Est GFR (Non-Af Amer) ml/min BUN/Creatinine Ratio (10-20) Glucose (70-99) mg/dl Calcium (8.5-10.1) mg/dl Phosphorus (2.5-4.9) mg/dl Magnesium (1.8-2.4) mg/dl Total Bilirubin (0.2-1) mg/dl AST (15-37) U/L ALT (12-78) U/L Alkaline Phosphatase (45-117) U/L Total Protein (6.4-8.2) gm/dl Albumin (3.4-5.0) gm/dl Globulin (2.5-4.0) gm/dl Albumin/Globulin Ratio (0.9-2) Urine Blood 1+ H (Negative) Urine RBC (Auto) 0-4 (0-4) /hpf Nasal Screen MRSA (PCR) (Negative) U Codeine Confrm GC/MS (<50) ng/mL Ur Morphine (GC/MS) (<50) ng/mL Ur Hydrocodone (GC/MS) (<50) ng/mL Ur Norhydrocodone (<50) ng/mL Ur Noroxycodone (<50) ng/mL Urine Oxycodone (GC/MS) (<50) ng/mL U Oxymorphone GC/MS (<50) ng/mL Ur Hydromorphone (GC/MS) (<50) ng/mL Drug Screen Comment Blood Type Blood Type Recheck O Positive Antibody Screen Crossmatch Transfusion React Date 11/29/2020 Transfusion React Time 1540 Tx React Symptoms Fever Reaction Clerical Check None Found Lab Clerical Err Check None Found React Component Return Packed Cells, O Pos Volume Returned 200mL Pre-Trans Blood Type O POSITIVE Pre-Trans Vis Hemolysis Yes Pre-Trans LUTHER Negative (Negative) Pre-Trans LUTHER IgG Neg (Negative) Pre-Trans LUTHER Poly Neg (Negative) Pre-Trans LUTHER C3b, C3d Neg (Negative) Post-Trans Blood Type O POSITIVE Post-Tx Visible Hemolys No Post-Trans LUTHER Negative (Negative) Post-Trans LUTHER IgG Neg (Negative) Post-Trans LUTHER Poly Neg (Negative) Post-Trans LUTHER C3b, C3d Neg (Negative) Post-Trans Ur Hemoglobin Pre: Neg, Post: 1+ Reaction Path Interpret Transfusion Serv Com 11/28/20 11/27/20 Range/Units Unknown 20:25 WBC (4.8-10.8) K/uL RBC (4.2-5.4) M/uL Hgb (12.0-16.0) g/dL Hct (37-47) % MCV (80-100) fL MCH (25-34) pg MCHC (32-36) g/dL RDW Std Deviation (36.4-46.3) fL RDW Coeff of Eloy (11.5-14.5) % Plt Count (130-400) K/uL MPV (7.4-10.4) fL Immature Gran % (Auto) % Neut % (Auto) % Lymph % (Auto) % Lamb % (Auto) % Eos % (Auto) % Baso % (Auto) % Neut # (Auto) (1.4-6.5) K/uL Lymph # (Auto) (1.2-3.4) K/uL Lamb # (Auto) (0.11-0.59) K/uL Eos # (Auto) (0-0.5) K/uL Baso # (Auto) (0-0.2) K/uL Immature Gran # (Auto) (0.00-0.02) K/uL Giant Platelets Sodium (136-145) mmol/L Potassium (3.5-5.1) mmol/L Chloride (98-107) mmol/L Carbon Dioxide (21-32) mmol/L Anion Gap (3-11) BUN (7-18) mg/dl Creatinine (0.6-1.2) mg/dl Est Cr Clr Drug Dosing ml/min Est GFR ( Amer) ml/min Est GFR (Non-Af Amer) ml/min BUN/Creatinine Ratio (10-20) Glucose (70-99) mg/dl Calcium (8.5-10.1) mg/dl Phosphorus (2.5-4.9) mg/dl Magnesium (1.8-2.4) mg/dl Total Bilirubin (0.2-1) mg/dl AST (15-37) U/L ALT (12-78) U/L Alkaline Phosphatase (45-117) U/L Total Protein (6.4-8.2) gm/dl Albumin (3.4-5.0) gm/dl Globulin (2.5-4.0) gm/dl Albumin/Globulin Ratio (0.9-2) Urine Blood (Negative) Urine RBC (Auto) (0-4) /hpf Nasal Screen MRSA (PCR) (Negative) U Codeine Confrm GC/MS NEGATIVE (<50) ng/mL Ur Morphine (GC/MS) 871 H (<50) ng/mL Ur Hydrocodone (GC/MS) NEGATIVE (<50) ng/mL Ur Norhydrocodone NEGATIVE (<50) ng/mL Ur Noroxycodone NEGATIVE (<50) ng/mL Urine Oxycodone (GC/MS) NEGATIVE (<50) ng/mL U Oxymorphone GC/MS NEGATIVE (<50) ng/mL Ur Hydromorphone (GC/MS) 546 H (<50) ng/mL Drug Screen Comment SEE NOTE Blood Type O Positive Blood Type Recheck Antibody Screen NEGATIVE Crossmatch See Detail Transfusion React Date Transfusion React Time Tx React Symptoms Reaction Clerical Check Lab Clerical Err Check React Component Return Volume Returned Pre-Trans Blood Type Pre-Trans Vis Hemolysis Pre-Trans LUTHER (Negative) Pre-Trans LUTHER IgG (Negative) Pre-Trans LUTHER Poly (Negative) Pre-Trans LUTHER C3b, C3d (Negative) Post-Trans Blood Type Post-Tx Visible Hemolys Post-Trans LUTHER (Negative) Post-Trans LUTHER IgG (Negative) Post-Trans LUTHER Poly (Negative) Post-Trans LUTHER C3b, C3d (Negative) Post-Trans Ur Hemoglobin Reaction Path Interpret Transfusion Serv Com (1) Fracture of hip, left, closed Encounter type: initial encounter Qualified Code(s): S72.002A - Fracture of unspecified part of neck of left femur, initial encounter for closed fracture
[2020-11-30] MEDS ORDERED: POTASSIUM CHLORIDE 40 MEQ in SODIUM CHLORIDE 0.9% 500 ML IV ONE (10:30)
[2020-11-30] MEDS ORDERED: PHENobarbital sodium 130 MG/ML VIAL IM STA (12:11)
[2020-11-30] MEDS: PHENobarbital sodium 130 MG/ML VIAL IM SCH ×2 (16:49→20:17)
--- NOTE | 2020-11-30 17:14 | Electrocardiogram Report ---
Test Reason : Blood Pressure : / mmHG Vent. Rate : 125 BPM Atrial Rate : 125 BPM P-R Int : 156 ms QRS Dur : 084 ms QT Int : 292 ms P-R-T Axes : 058 073 105 degrees QTc Int : 421 ms Poor data quality, interpretation may be adversely affected Sinus tachycardia Abnormal ECG When compared with ECG of 28-NOV-2020 03:30, ST no longer depressed in Inferior leads T wave inversion now evident in Lateral leads Confirmed by Gaurang Stevens ([id number]) on 11/30/2020 5:14:44 PM Referred By: REFERRED SELF Confirmed By:Chris Stevens
[2020-11-30] MEDS ORDERED: ACETAMINOPHEN 1000 MG/100 ML IV IV STA (17:55)
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
[2020-11-30] MEDS: MONTELUKAST SODIUM 10 MG TABLET PO SCH (21:00)
[2020-11-30] MEDS: PHENobarbital sodium 65 MG/ML VIAL IM PRN (23:12)
[2020-12-01] MEDS: SODIUM CHLORIDE 0.9% 1000ML 1,000 ML IV SCH ×2 (03:13→16:51)
[2020-12-01] MEDS: ACETAMINOPHEN 65 ML IV PRN ×2 (04:13→16:35)
[2020-12-01 05:52] LABS: BUN Creatinine Ratio 18.7 (10-20); Calcium 8.1 mg/dl (8.5-10.1); Creatinine Clr Calc Pharmacy 116.7 ml/min; Est GFR (African American) 138.4 ml/min; Est GFR (Non-African American) 119.4 ml/min; Magnesium 2.2 mg/dl (1.8-2.4); Potassium 2.7 mmol/L (3.5-5.1)
[2020-12-01 05:53] LABS: Phosphorus 2.3 mg/dl (2.5-4.9)
[2020-12-01] MEDS ORDERED: POTASSIUM PHOS 3 MMOL/1 ML INFUSION IV STA ×2 (06:03→21:02)
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
[2020-12-01 06:17] LABS: Hematocrit (blood only) 20.4 % (37-47); Mean Corpuscular Hemoglobin 33.3 pg (25-34); Mean Corpuscular Hgb Conc 34.3 g/dL (32-36); Mean Corpuscular Volume 97.1 fL (80-100); Mean Platelet Volume 9.2 fL (7.4-10.4); Platelet Count 114 K/uL (130-400); RDW Coefficient of Variation 12.4 % (11.5-14.5); RDW Standard Deviation 44.3 fL (36.4-46.3); White Blood Count 5.64 K/uL (4.8-10.8)
[2020-12-01] MEDS ORDERED: SODIUM CHLORIDE 0.9% 250 ML IV PRN (06:28)
[2020-12-01] MEDS ORDERED: ACETAMINOPHEN 65 ML IV ONE (06:30)
[2020-12-01] MEDS ORDERED: POTASSIUM PHOSPHATE 15 MMOL in SODIUM CHLORIDE 0.9% 250 ML IV ONE (06:30)
[2020-12-01] MEDS ORDERED: diphenhydrAMINE 50 MG/ML VIAL IV ONE (07:00)
[2020-12-01] MEDS: NICOTINE 14 MG/24 HR PATCH TD SCH (08:23)
[2020-12-01] MEDS: THIAMINE HCL 100 MG in SYRINGE 9 ML IV SCH (08:23)
[2020-12-01] MEDS: POTASSIUM CHLORIDE / WTR 10 MEQ/100 ML PLCT IV SCH ×6 (08:24→12:22)
[2020-12-01] MEDS: FOLIC ACID 1 MG in SYRINGE 9.8 ML IV SCH (08:24)
[2020-12-01] MEDS: DOCUSATE SODIUM 100 MG CAP PO SCH ×2 (09:13→23:57)
[2020-12-01] MEDS: busPIRone 5 MG TAB PO SCH ×2 (09:13→23:55)
[2020-12-01] MEDS: ASPIRIN 81 MG ECTAB PO SCH ×2 (09:13→23:55)
[2020-12-01] MEDS: CEROVITE ADV FORMULA TAB PO SCH (09:14)
[2020-12-01] MEDS: FLUTICASONE/VILANTEROL 100/25MCG 14 PUFFS/INHALER INH SCH (09:14)
--- NOTE | 2020-12-01 10:06 | Billing Data ---
Date of Service December 01, 2020 Coding Level of Care Code Critical Care 1st -74 mins
[2020-12-01] MEDS ORDERED: HEPARIN SOD 5,000 UNIT/0.5 ML VIAL SQ ONE (11:00)
[2020-12-01] MEDS ORDERED: GABAPENTIN 400 MG CAP PO SCH (12:00)
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
[2020-12-01 14:18] LABS: Hematocrit (blood only) 25.8 % (37-47); Hemoglobin 8.6 g/dL (12.0-16.0)
--- NOTE | 2020-12-01 14:27 | Orthopedic Progress Note ---
Date of Service December 01, 2020 Assessment & Plan (1) Fracture of hip, left, closed: Plan: POD #3 - ORIF left hip She may be out of bed when medically safe, WBAT LLE Use walker or crutches to assist with ambulation. Ice to left thigh when at rest Dressing can remain on. Reinforce PRN and change PRN if saturated. Allowed for full ROM left hip, left knee and left ankle. Will sign off.. Follow up as scheduled with Dr. Jaquez on 12/14/20 at 10:00 a.m. Please contact us if any questions or concerns arise. Admission and Anticipated Discharge Date Admission Date: November 27, 2020 Subjective Patient is seen and examined at bedside. Per nursing received 1 unit of PRBCs today. Lethargic and drowsy. Responded to me saying her name. Mumbling. Physical Exam Musculoskeletal: In bed. Appears comfortable. Lethargic. Left hip incision dressings clean/dry/intact/. No pain or wincing with left hip log rolling. B LE with mathew hose. Minimal pitting edema to lower extremities. Palpable DP and PT pulses. Results & Data ([facility]) Vital Signs (Past 12 Hours) Vital Signs Temp Pulse Resp BP Pulse Ox 12/01/20 11:30 38.0 C H 103 H 25 H 127/81 100 12/01/20 11:15 38.0 C H 108 H 20 150/91 H 85 L 12/01/20 11:07 38 C H 104 H 28 H 140/93 99 12/01/20 11:01 38.0 C H 102 H 21 96 12/01/20 10:08 38.0 C H 104 H 24 132/82 97 12/01/20 09:14 37.8 C H 122 H 18 132/98 96 12/01/20 08:48 37.7 C H 119 H 18 129/55 L 96 12/01/20 08:29 37.7 C H 109 H 25 H 114/68 97 12/01/20 07:25 37.9 C H 148 H 22 152/79 H 97 12/01/20 06:26 38.0 C H 118 H 27 H 100/67 98 12/01/20 05:25 38.4 C H 107 H 39 H 98/64 L 98 12/01/20 04:26 38.2 C H 123 H 29 H 141/76 H 96 12/01/20 03:25 38.1 C H 117 H 30 H 130/81 98 12/01/20 02:25 38.4 C H 114 H 28 H 112/71 96 (1) Fracture of hip, left, closed Encounter type: initial encounter Qualified Code(s): S72.002A - Fracture of unspecified part of neck of left femur, initial encounter for closed fracture
[2020-12-01 20:44] LABS: BUN Creatinine Ratio 18.4 (10-20); Calcium 8.4 mg/dl (8.5-10.1); Creatinine Clr Calc Pharmacy 142.6 ml/min; Est GFR (African American) 146.8 ml/min; Est GFR (Non-African American) 126.6 ml/min; Magnesium 1.9 mg/dl (1.8-2.4); Phosphorus 1.9 mg/dl (2.5-4.9); Potassium 3.5 mmol/L (3.5-5.1)
[2020-12-01] MEDS ORDERED: MAGNESIUM SULFATE / D5W 1 GM/100 ML BAG IV ONE (21:02)
[2020-12-01] MEDS ORDERED: POTASSIUM PHOSPHATE 21 MMOL in SODIUM CHLORIDE 0.9% 500 ML IV ONE (21:15)
[2020-12-01] MEDS: MONTELUKAST SODIUM 10 MG TABLET PO SCH (23:57)
[2020-12-01] MEDS: HEPARIN SOD 5,000 UNIT/0.5 ML VIAL SQ SCH (23:58)
[2020-12-02] MEDS: ACETAMINOPHEN 325 MG TAB PO PRN (00:10)
[2020-12-02 05:26] LABS: Hematocrit (blood only) 26.5 % (37-47); Hemoglobin 8.9 g/dL (12.0-16.0); Mean Corpuscular Hemoglobin 31.9 pg (25-34); Mean Corpuscular Hgb Conc 33.6 g/dL (32-36); Mean Platelet Volume 9.3 fL (7.4-10.4); Platelet Count 152 K/uL (130-400); RDW Coefficient of Variation 14.6 % (11.5-14.5); RDW Standard Deviation 50.6 fL (36.4-46.3); Red Blood Count 2.79 M/uL (4.2-5.4); White Blood Count 6.77 K/uL (4.8-10.8)
[2020-12-02 06:01] LABS: Alanine Aminotransferase 28 U/L (12-78); Albumin Level 2.5 gm/dl (3.4-5.0); Aspartate Aminotransferase 43 U/L (15-37); BUN Creatinine Ratio 18.2 (10-20); Bilirubin Direct 0.7 mg/dl (0-0.2); Blood Urea Nitrogen 6 mg/dl (7-18); Calcium 8.1 mg/dl (8.5-10.1); Carbon Dioxide 22 mmol/L (21-32); Chloride 102 mmol/L (98-107); Creatinine Clr Calc Pharmacy 155.6 ml/min; Est GFR (African American) > 150.0 ml/min; Est GFR (Non-African American) 130.3 ml/min; Glucose 84 mg/dl (70-99); Magnesium 2.4 mg/dl (1.8-2.4); Sodium 132 mmol/L (136-145)
[2020-12-02 06:07] LABS: Alkaline Phosphatase 68 U/L (45-117); Bilirubin,Total 1.5 mg/dl (0.2-1); Phosphorus 3.2 mg/dl (2.5-4.9); Total Protein 6.1 gm/dl (6.4-8.2)
[2020-12-02] MEDS ORDERED: POTASSIUM CHLORIDE 20 MEQ/15 ML UDC PO STA (06:09)
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
[2020-12-02] MEDS: SODIUM CHLORIDE 0.9% 1000ML 1,000 ML IV SCH ×2 (06:43→18:20)
[2020-12-02] MEDS: POTASSIUM CHLORIDE / WTR 10 MEQ/100 ML PLCT IV SCH ×7 (06:43→12:49)
--- NOTE | 2020-12-02 07:09 | XRay Report ---
KUB HISTORY: Status post placement of an enteric tube ng tube insertion COMPARISON: Chest radiograph 11/27/2020 FINDINGS: Status post placement of an enteric tube, distal tip projected superiorly within the distri bution of the gastric fundus. Mild kinking of the tube is noted just distal to the side port. Air-[place] led gaseous distended loops of large and small bowel. The lower abdomen is excluded from the field-of -view. No pneumatosis or pneumoperitoneum. No urolith identified. No acute fracture. The imaged lung bases appear clear. IMPRESSION: 1. Status post placement of an enteric tube with distal tip projected superiorly within the gastric f undus. 2. Distended gas-filled loops of large and small bowel suggestive of ileus versus distal obstruction. ACT 112: Negative or not required by law. The above report was generated using voice recognition software. It may contain grammatical, syntax o r spelling errors. Electronically signed by: Chan Burns M.D. 12/02/2020 7:08 AM
[2020-12-02] MEDS: THIAMINE HCL 100 MG in SYRINGE 9 ML IV SCH (08:07)
[2020-12-02] MEDS: NICOTINE 14 MG/24 HR PATCH TD SCH (08:07)
[2020-12-02] MEDS: ASPIRIN 81 MG ECTAB PO SCH ×2 (08:07→21:42)
[2020-12-02] MEDS: FOLIC ACID 1 MG in SYRINGE 9.8 ML IV SCH (08:07)
[2020-12-02] MEDS: CEROVITE ADV FORMULA TAB PO SCH (08:07)
[2020-12-02] MEDS: HEPARIN SOD 5,000 UNIT/0.5 ML VIAL SQ SCH ×2 (08:08→21:42)
[2020-12-02] MEDS: DOCUSATE SODIUM 100 MG CAP PO SCH (08:08)
[2020-12-02] MEDS: FLUTICASONE/VILANTEROL 100/25MCG 14 PUFFS/INHALER INH SCH (08:08)
[2020-12-02] MEDS: busPIRone 5 MG TAB PO SCH ×2 (08:08→21:42)
[2020-12-02] MEDS ORDERED: METOCLOPRAMIDE HCL INJ 5 MG/ML 2 ML VIAL IV ONE (09:45)
--- NOTE | 2020-12-02 09:47 | Billing Data ---
Date of Service December 02, 2020 Coding Level of Care Code Critical Care 1st -74 mins
[2020-12-02] MEDS: PHENobarbital sodium 65 MG/ML VIAL IM PRN (09:55)
[2020-12-02 12:35] LABS: BUN Creatinine Ratio 16.7 (10-20); Calcium 8.3 mg/dl (8.5-10.1); Creatinine Clr Calc Pharmacy 138.8 ml/min; Est GFR (African American) 145.4 ml/min; Est GFR (Non-African American) 125.5 ml/min; Potassium 4.5 mmol/L (3.5-5.1)
[2020-12-02] MEDS ORDERED: Nursing to Pharmacy Communication SCH (13:00)
[2020-12-02] MEDS: ACETAMINOPHEN 65 ML IV PRN (13:31)
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
[2020-12-02] MEDS: MONTELUKAST SODIUM 10 MG TABLET PO SCH (21:42)
[2020-12-03] MEDS: PHENobarbital sodium 65 MG/ML VIAL IM PRN (00:13)
[2020-12-03] MEDS: HYDROmorphone INJ 0.5 MG/0.5 ML SYR IV PRN (02:35)
[2020-12-03 06:08] LABS: Mean Corpuscular Hemoglobin 31.3 pg (25-34); Mean Corpuscular Hgb Conc 33.3 g/dL (32-36); Mean Platelet Volume 9.8 fL (7.4-10.4); Platelet Count 248 K/uL (130-400); RDW Coefficient of Variation 14.3 % (11.5-14.5); RDW Standard Deviation 49.7 fL (36.4-46.3); Red Blood Count 3.19 M/uL (4.2-5.4); White Blood Count 9.56 K/uL (4.8-10.8)
[2020-12-03 06:39] LABS: BUN Creatinine Ratio 16.5 (10-20); Blood Urea Nitrogen 5 mg/dl (7-18); Carbon Dioxide 24 mmol/L (21-32); Chloride 96 mmol/L (98-107); Creatinine Clr Calc Pharmacy 185.8 ml/min; Est GFR (African American) > 150.0 ml/min; Est GFR (Non-African American) 139.2 ml/min; Glucose 82 mg/dl (70-99); Magnesium 1.7 mg/dl (1.8-2.4); Phosphorus 2.6 mg/dl (2.5-4.9); Potassium 3.5 mmol/L (3.5-5.1); Sodium 129 mmol/L (136-145)
[2020-12-03] MEDS: ACETAMINOPHEN 65 ML IV PRN (06:41)
[2020-12-03 07:19] LABS: Basophils # (auto) 0.02 K/uL (0-0.2); Basophils % (auto) 0.2 %; Dohle Bodies 1+; Eosinophils # (auto) 0.14 K/uL (0-0.5); Eosinophils % (auto) 1.5 %; Immature Granulocytes # (auto) 0.02 K/uL (0.00-0.02); Immature Granulocytes % (auto) 0.2 %; Lymphocytes # (auto) 0.85 K/uL (1.2-3.4); Lymphocytes % (auto) 8.9 %; Monocytes % (auto) 30.3 %; Neutrophils # (auto) 5.63 K/uL (1.4-6.5); Neutrophils % (auto) 58.9 %; Polychromasia 1+
[2020-12-03] MEDS: SODIUM CHLORIDE 0.9% 1000ML 1,000 ML IV SCH (07:55)
[2020-12-03] MEDS: THIAMINE HCL 100 MG in SYRINGE 9 ML IV SCH (08:02)
[2020-12-03] MEDS: NICOTINE 14 MG/24 HR PATCH TD SCH (08:02)
[2020-12-03] MEDS: FOLIC ACID 1 MG in SYRINGE 9.8 ML IV SCH (08:02)
[2020-12-03] MEDS: busPIRone 5 MG TAB PO SCH ×2 (08:03→20:37)
[2020-12-03] MEDS: HEPARIN SOD 5,000 UNIT/0.5 ML VIAL SQ SCH ×2 (08:03→20:37)
[2020-12-03] MEDS: ASPIRIN 81 MG ECTAB PO SCH ×2 (08:03→20:37)
[2020-12-03] MEDS: CEROVITE ADV FORMULA TAB PO SCH (08:03)
[2020-12-03] MEDS: FLUTICASONE/VILANTEROL 100/25MCG 14 PUFFS/INHALER INH SCH (10:44)
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
[2020-12-03] MEDS ORDERED: ATIVAN IV ALCOHOL WITHDRAWL IV PRN (11:00)
[2020-12-03] MEDS ORDERED: LORazepam 3 MG/6 ML VIAL IV PRN (11:00)
[2020-12-03] MEDS ORDERED: LORazepam 1 MG TAB PO PRN (11:00)
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
[2020-12-03] MEDS: PEPTAMEN INTENSE VHP 1.0 CAL 1,000 ML BAG GT SCH (13:00)
[2020-12-03] MEDS: LORazepam 2 MG/4 ML VIAL IV PRN ×5 (15:49→23:15)
[2020-12-03] MEDS: MONTELUKAST SODIUM 10 MG TABLET PO SCH (20:37)
[2020-12-04] MEDS: ACETAMINOPHEN 325 MG TAB PO PRN (04:15)
[2020-12-04 04:27] LABS: Hematocrit (blood only) 28.7 % (37-47); Hemoglobin 9.6 g/dL (12.0-16.0); Mean Corpuscular Hgb Conc 33.4 g/dL (32-36); Mean Corpuscular Volume 92.6 fL (80-100); Mean Platelet Volume 9.5 fL (7.4-10.4); Platelet Count 308 K/uL (130-400); RDW Coefficient of Variation 14.2 % (11.5-14.5); RDW Standard Deviation 48.4 fL (36.4-46.3); White Blood Count 11.42 K/uL (4.8-10.8)
[2020-12-04 04:58] LABS: Albumin Level 2.4 gm/dl (3.4-5.0); BUN Creatinine Ratio 18.4 (10-20); Bilirubin Direct 0.5 mg/dl (0-0.2); Calcium 8.6 mg/dl (8.5-10.1); Creatinine Clr Calc Pharmacy 143.3 ml/min; Est GFR (African American) 148.1 ml/min; Est GFR (Non-African American) 127.8 ml/min; Magnesium 1.8 mg/dl (1.8-2.4); Potassium 2.7 mmol/L (3.5-5.1); Total Protein 6.3 gm/dl (6.4-8.2)
[2020-12-04] MEDS ORDERED: POTASSIUM CHLORIDE 20 MEQ/15 ML UDC PO STA (05:05)
[2020-12-04 05:10] LABS: ALC (manual) 1.39 K/uL (1.2-3.4); ANC (manual) 7.46 K/uL (1.4-6.5); Basophils # (manual) 0.19 K/uL (0-0.2); Basophils % (manual) 1.7 %; Dohle Bodies 2+; Eosinophils # (manual) 0.19 K/uL (0-0.5); Eosinophils % (manual) 1.7 %; Lymphocytes # (manual) 1.39 K/uL (1.2-3.4); Lymphocytes % (manual) 12.2 %; Monocytes # (manual) 2.18 K/uL (0.11-0.59); Monocytes % (manual) 19.1 %; Neutrophils # (manual) 7.46 K/uL (1.4-6.5); Neutrophils % (manual) 65.3 %; Polychromasia 1+; Toxic Granulation 1+
[2020-12-04] MEDS: POTASSIUM CHLORIDE / WTR 10 MEQ/100 ML PLCT IV SCH ×4 (05:29→09:57)
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
[2020-12-04] MEDS: LORazepam 1 MG/2 ML VIAL IV PRN ×2 (08:15→13:56)
[2020-12-04] MEDS: THIAMINE HCL 100 MG in SYRINGE 9 ML IV SCH (08:17)
[2020-12-04] MEDS: ASPIRIN 81 MG ECTAB PO SCH ×2 (08:17→21:13)
[2020-12-04] MEDS: FOLIC ACID 1 MG in SYRINGE 9.8 ML IV SCH (08:17)
[2020-12-04] MEDS: busPIRone 5 MG TAB PO SCH ×2 (08:18→21:13)
[2020-12-04] MEDS: NICOTINE 14 MG/24 HR PATCH TD SCH (08:18)
[2020-12-04] MEDS: CEROVITE ADV FORMULA TAB PO SCH (08:18)
[2020-12-04] MEDS: FLUTICASONE/VILANTEROL 100/25MCG 14 PUFFS/INHALER INH SCH (08:19)
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
[2020-12-04] MEDS: HEPARIN SOD 5,000 UNIT/0.5 ML VIAL SQ SCH ×2 (09:57→21:14)
[2020-12-04 10:01] LABS: Appearance Urine Cloudy (Clear); Bacteria Urine Automated 4+ (Negative); Bilirubin Urine Negative (Negative); Blood Urine 3+ (Negative); Color Urine Dark Yellow; Glucose Urine UA Negative (Negative); Ketones Urine 1+ (Negative); Leukocyte Esterase Urine 2+ (Negative); Nitrite Urine Positive (Negative); Protein Urine Negative (Negative); RBC Urine Automated >30 /hpf (0-4); Specific Gravity Urine 1.019 (1.000-1.030); Urobilinogen Urine Negative (Negative); WBC Urine Automated >30 /hpf (0-5); pH Urine 5.5 (4.5-7.5)
--- NOTE | 2020-12-04 12:29 | Ultrasound Report ---
BILATERAL LOWER EXTREMITY VENOUS DOPPLER CLINICAL HISTORY: Recent left hip surgery. COMPARISON STUDY: No previous studies for comparison. TECHNIQUE: Sonography of the deep venous system of the bilateral lower extremities was performed. Co mpression and augmentation were evaluated. FINDINGS: The bilateral common femoral, superficial femoral and popliteal veins were compressible. A ugmentation was normal. Flow was shown within the deep calf vessels. IMPRESSION: No evidence of deep venous thrombus within the bilateral lower extremities. ACT 112: Negative or not required by law. Electronically signed by: Mike Gallegos M.D. 12/04/2020 12:28 PM
[2020-12-04] MEDS: PEPTAMEN INTENSE VHP 1.0 CAL 1,000 ML BAG GT SCH (12:58)
[2020-12-04] MEDS ORDERED: cefTRIAXone SODIUM 2,000 MG in DEXTROSE 5% 50 ML IV SCH (14:30)
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
[2020-12-04] MEDS: LORazepam 2 MG/4 ML VIAL IV PRN (18:19)
[2020-12-04] MEDS: MONTELUKAST SODIUM 10 MG TABLET PO SCH (21:13)
[2020-12-05] MEDS ORDERED: RAPID SEQUENCE INDUCTION BAG ONE (04:03)
[2020-12-05] MEDS ORDERED: STAT IV Infusion **Titration per Protocol STA ×3 (04:30→22:36)
[2020-12-05] MEDS ORDERED: MIDAZOLAM BOLUS FROM BAG IV PRN (04:30)
[2020-12-05] MEDS ORDERED: fentaNYL DRIP 1,250 MCG/250 ML BAG IV SCH (04:30)
[2020-12-05] MEDS ORDERED: MIDAZOLAM HCL 125 MG/250 ML BAG IV SCH (04:30)
--- NOTE | 2020-12-05 04:32 | Progress Note ---
Date of Service December 05, 2020 Assessment & Plan Admission and Anticipated Discharge Date Admission Date: November 27, 2020 Subjective ED Physician Note: Called to ICU for decompensating patient Date: 12/05/20. Time: 04:00am Called to room 108 for impending respiratory arrest Patient is 50 yr old female in hospital for the last week following left hip fracture with surgery. In ICU for alcohol withdrawal and worsening mental status. She was noted to be more obtunded over last few hours despite no recent benzos/opioids. Desaturated requiring deep suction and BVM. Patient being deep suctioned on my arrival. Quickly desaturates. Unresponsive to pressure nor voice. Tachy and febrile as well. Lung sounds decreased throughout right without tracheal deviation. Given findings and reported code status I agree with proceeding with intubation. I gave verbal order for Etomidate 20mg IV & Succinylcholine 150mg IV. Paralytics used as patient has been getting tube feeds and gags with deep suc tion. Patient intubated on first attempted by Jone Ragsdale PA-C without difficulty. Post intubation color change noted, bilateral lung sounds intact though still decreased on right. BP a bit low post intubation and fluid bolus started. Discussion regarding CXR, and likely need for CTA chest, cultures, amongst extensive other work-up. Critical Care: I have personally spent 30 minutes of critical care time in the direct management of this patient. Acute respiratory failure in post op febrile patient and in alcohol withdrawal requiring intubation. This was a life/limb threatening event. This 30 minutes is in excess of all separately billable procedures. Dao Sanchez MD Results & Data ([facility]) Vital Signs (Past 12 Hours) Vital Signs Temp Pulse Resp BP Pulse Ox 12/05/20 01:14 37.8 C H 121 H 24 107/72 98 12/05/20 00:14 37.9 C H 127 H 23 120/81 95 12/04/20 23:14 38.0 C H 126 H 24 121/81 94 12/04/20 22:14 38.1 C H 125 H 23 118/81 93 12/04/20 21:14 38.0 C H 120 H 24 152/106 H 92 12/04/20 20:14 38.0 C H 128 H 28 H 120/78 99 12/04/20 19:14 37.9 C H 123 H 25 H 123/76 93 12/04/20 18:14 37.8 C H 120 H 23 119/74 94 12/04/20 17:14 37.7 C H 118 H 24 113/79 96
[2020-12-05 04:35] LABS: iSTAT Allen Test Pass; iSTAT Art Bld Gas pCO2 Correct 77 mmHg (35-46); iSTAT Art Bld Gas pH Corrected 7.273 (7.35-7.45); iSTAT Arterial Blood Gas HCO3 35 meg/L (19-24); iSTAT Arterial Blood Gas pCO2 74 mmHg (35-46); iSTAT Arterial Blood Gas pH 7.29 (7.35-7.45); iSTAT Arterial Blood Gas pO2 64 mmHg (80-95); iSTAT Arterial Blood Gas pO2 C 68; iSTAT Carbon Dioxide 37 mmol/L (24-31); iSTAT Hematocrit 30 % (37-47); iSTAT Hemoglobin 10.2 g/dl (12.0-16.0); iSTAT Potassium 3.8 mmol/L (3.3-5.0); iSTAT Site L Radial; iSTAT Sodium 132 mmol/L (135-144)
--- NOTE | 2020-12-05 04:40 | Procedure Note ---
Procedure Note Date of Service December 05, 2020 Note INTUBATION PROCEDURE NOTE: Provider: JOSE Redding Attending: Nick Welsh A time-out was completed verifying correct patient, procedure, site, positioning. Patient was evaluated and required intubation for hypercapnic respiratory failure and altered mental status with concern for unprotected airway. Sedative agent used: Etomidate Paralysis agent used: Succinylcholine Emergent consent was implied given patients rapidly declining clinical status and need for airway protection. The patient was prepared in the appropriate fashion. Sedation was achieved utilizing etomidate and succinylcholine, per Dr. Sanchez administration. The patient was easily ventilated using [id number] to achieve adequate oxygenation. A 7.5 Iranian endotracheal tube was placed utilizing Gluidoscope and was passed through the vocal cords to 22 cm at the lip. The stylette was removed and balloon was inflated with 10mL of air. Appropriate Colorimetric change was appreciated. Bilateral breath sounds were heard without air sounds in the abdomen. Dr. Sanchez was present for the entire procedure. Post Intubation Chest X-ray confirms placement without pneumothorax. Patient tolerated the procedure well and there were no immediate complications. Coding CPT Codes Resuscitation - Resuscitation: 39611 Endotracheal Intubation, emergency ([id number]) [facility]odes ([place]) Resuscitation Resuscitation: 54448 Endotracheal Intubation, emergency
[2020-12-05] MEDS ORDERED: SODIUM CHLORIDE 0.9% 1000ML 1,000 ML IV SCH (04:45)
[2020-12-05 05:09] LABS: iSTAT Allen Test Pass; iSTAT Arterial Blood Gas HCO3 36 meg/L (19-24); iSTAT Arterial Blood Gas pCO2 61 mmHg (35-46); iSTAT Arterial Blood Gas pH 7.37 (7.35-7.45); iSTAT Arterial Blood Gas pO2 71 mmHg (80-95); iSTAT Carbon Dioxide 38 mmol/L (24-31); iSTAT FiO2 40 %; iSTAT Site R Radial
[2020-12-05 05:09] LABS: Hematocrit (blood only) 30.7 % (37-47); Mean Corpuscular Hemoglobin 31.3 pg (25-34); Mean Corpuscular Volume 96.2 fL (80-100); Mean Platelet Volume 9.3 fL (7.4-10.4); Platelet Count 370 K/uL (130-400); RDW Coefficient of Variation 14.4 % (11.5-14.5); RDW Standard Deviation 51.9 fL (36.4-46.3); Red Blood Count 3.19 M/uL (4.2-5.4); White Blood Count 11.74 K/uL (4.8-10.8)
[2020-12-05] MEDS ORDERED: OPTIRAY 320 125ml IV ONE (05:23)
[2020-12-05 05:35] LABS: Mean Corpuscular Hgb Conc 32.6 g/dL (32-36)
[2020-12-05 05:37] LABS: Basophils # (auto) 0.05 K/uL (0-0.2); Basophils % (auto) 0.4 %; Eosinophils # (auto) 0.08 K/uL (0-0.5); Eosinophils % (auto) 0.7 %; Immature Granulocytes # (auto) 0.14 K/uL (0.00-0.02); Immature Granulocytes % (auto) 1.2 %; Lymphocytes # (auto) 0.84 K/uL (1.2-3.4); Lymphocytes % (auto) 7.2 %; Monocytes # (auto) 3.21 K/uL (0.11-0.59); Monocytes % (auto) 27.3 %; Neutrophils # (auto) 7.42 K/uL (1.4-6.5); Neutrophils % (auto) 63.2 %; RBC Morphology Unremarkable
[2020-12-05 05:41] LABS: Albumin Level 2.4 gm/dl (3.4-5.0); BUN Creatinine Ratio 21.5 (10-20); Bilirubin Direct 0.4 mg/dl (0-0.2); Bilirubin,Total 0.8 mg/dl (0.2-1); Calcium 9.3 mg/dl (8.5-10.1); Creatinine Clr Calc Pharmacy 147.6 ml/min; Est GFR (African American) 149.5 ml/min; Magnesium 1.8 mg/dl (1.8-2.4); Potassium 3.9 mmol/L (3.5-5.1); Total Protein 6.7 gm/dl (6.4-8.2)
--- NOTE | 2020-12-05 07:04 | CT Scan Report ---
CT SCAN OF THE BRAIN WITHOUT IV CONTRAST CLINICAL HISTORY: Change in mental status COMPARISON STUDY: No priors. TECHNIQUE: Unenhanced axial CT scan of the brain is performed from the vertex to the skull base. A d ose lowering technique was utilized adhering to the principles of ALARA. CT DOSE: 537.48 mGy.cm FINDINGS: Brain parenchyma: The brain parenchyma is normal in appearance. There is no hemorrhage, mass effect, or evidence of acute territorial ischemia by CT criteria. Lai-white matter differentiation is preser que. No extra-axial fluid collection is seen. Ventricles, sulci, cisterns: Normal in configuration. Intracranial vasculature: The visualized intracranial vasculature at the skull base is normal in appe arance. Calvarium: Unremarkable. Sinuses and mastoids: The visualized paranasal sinuses are clear. The mastoid air cells are well pneu matized. Orbits: The bony orbits are grossly intact. IMPRESSION: No acute intracranial abnormality. ACT 112: Negative or not required by law. Electronically signed by: Aurleiano Bull M.D. 12/05/2020 7:03 AM
--- NOTE | 2020-12-05 08:11 | XRay Report ---
XR chest 1V portable CLINICAL HISTORY: ett COMPARISON STUDY: Chest radiograph December 04, 2020. FINDINGS: Tip of the endotracheal tube is 3.2 cm above the sherri. There is no pneumothorax. Tip of n asogastric tube is below the lower aspect of this image but at least within the distal body of the st omach. There are small bilateral pleural effusions. Bilateral airspace opacities persist. Old distal right clavicular fracture is present. IMPRESSION: 1. Satisfactory positioning of the endotracheal tube. 2. Persistent bilateral airspace opacities suggestive of an infectious process. 3. Small bilateral pleural effusions. No pneumothorax. ACT 112: Negative or not required by law. Electronically signed by: Mike Gallegos M.D. 12/05/2020 8:09 AM
[2020-12-05] MEDS ORDERED: AZITHROMYCIN 500 MG in DEXTROSE 5% 250 ML IV STA (08:13)
[2020-12-05] MEDS ORDERED: PIPERACILL/TAZOBAC CONSULT ACTIVE PRN (08:13)
--- NOTE | 2020-12-05 08:18 | CT Scan Report ---
CT ANGIOGRAM OF THE CHEST CLINICAL HISTORY: Respiratory failure. Possible pulmonary embolism. COMPARISON STUDY: Chest x-ray dated 12/05/2020 TECHNIQUE: Following the IV administration of 87 mL of Optiray, CT angiogram of the thorax was perfor med from the thoracic inlet to the lung bases utilizing the pulmonary embolus protocol. Images are re viewed in the axial, sagittal, and coronal planes. IV contrast was administered without complication. MIP imaging was performed. A dose lowering technique was utilized adhering to the principles of ALA RA. CT DOSE: 230.33 mGy.cm FINDINGS: There are minimally enlarged mediastinal lymph nodes measuring up to 11 mm in short axis. There was no evidence of thoracic aortic dilatation. There were no pulmonary artery filling defects to indicate acute pulmonary embolism. There are small bilateral pleural effusions There are multifocal groundglass pulmonary opacities, multifocal pneumonia versus pulmonary edema. Th ere are dependent airspace opacities likely atelectatic. Endotracheal tube and nasogastric tube are v isualized. IMPRESSION: 1. No evidence of acute pulmonary embolism 2. Small bilateral pleural effusions with dependent atelectasis 3. Multifocal groundglass pulmonary opacities, multifocal pneumonia versus pulmonary edema. Clinical and radiographic follow-up recommended. 4. Mild adenopathy statistically reactive ACT 112: Negative or not required by law. Electronically signed by: Gregorio Summers M.D. 12/05/2020 8:16 AM
[2020-12-05] MEDS ORDERED: PIPERACILLIN/TAZOBACTAM 4.5 GM in DEXTROSE 5% 100 ML IV ONE (08:30)
--- NOTE | 2020-12-05 08:30 | Critical Care Progress Note ---
Date of Service December 05, 2020 Assessment & Plan (1) Acute hypercapnic respiratory failure: Plan: Patient discussed on multidisciplinary rounds. Reason Critically Ill: Naun is a 50-year-old female with a notable history of chronic ongoing alcoholism (6 beers daily x 30 years), tobacco abuse, moderate persistent asthma who presented to [facility] for evaluation of a hip fracture and an EtOH level of 295, subsequently found to have a left proximal intertrochanteric fracture of the femur, now status post ORIF on 11/28. Her course has been complicated by acute blood loss anemia (11->7.3) as well as continued agitation, confusion, and tachycardia in setting of suspected alcohol withdrawal and a postoperative state. She requires ICU level care out of concern for worsening alcohol withdrawal. Neuro - Currently intubated and sedated with Versed and fentanyl. Will wean sedation as able. She does have an element of alcohol withdrawal. Continue thiamine and folic acid. Less likely, but less can be considered as the possibility of meningitis given her fever and altered mental status. CT of her head 12/05/2020 was without acute findings. She did complete a phenobarb taper over 3 days. Cardiac - Tachycardia is likely secondary to component of alcohol withdrawal and sepsis. Continue to trend heart rate. Maintain mean arterial pressures above 65. Get a bedside echo 12/05/2020 which demonstrated good LV function. IVC was plump. We will need to consider central line placement and arterial line placement if mean arterial pressures are below 65. Respiratory - Patient is currently intubated and sedated mostly for airway protection and acute hypercapnic respiratory failure. He is requiring minimal vent support. Chest x-ray does demonstrate groundglass opacities. Unclear if this is related to volume overload/CHF versus infectious process. Procalcitonin is elevated. Echocardiogram has been ordered. I placed an order for a urine Legionella and bio fire study. GI - We will start tube feeds today. There was a concern of an ileus earlier this hospitalization. RENAL/LYTES - * Suspect hyponatremia is secondary to alcohol use (chronic) * Replete lytes as needed per ICU protocol * No MILDRED - * No acute concerns at this time ENDO - * ICU Hyperglycemia protocol HEME - Acute blood loss anemia with secondary to surgery. It is stabilized at this time. ID - Blood culture results pending. Urinalysis was positive for nitrites and leukoesterase. Cultures pending. Antibiotics have been broadened to Zosyn and azithromycin. Respiratory bio fire panel and urine Legionella has been ordered as noted above. We will need to consider lumbar puncture if no improvement in clinical status. MSK - Left Hip Fracture s/p ORIF * POD-5 s/p ORIF of L hip * When able with above mgmt -- WBAT to LLE, using crutches / walker to assist with ambulation * PT, OT for strengthening and ROM LINES/IV ACCESS - PIVs intact. DVT PROPHYLAXIS - Heparin SQ 5000U q12h CRITICAL CARE TIME - I have personally spent 43 minutes of critical care time in the direct management of this patient. This is a life/limb threatening event. This includes time spent evaluating patient, direct bedside care, chart review, placing orders, interpretation of diagnostic studies, discussion with consultants, patient, and family members, as well as other required patient management activities. This time is exclusive of all separately billable procedures, and teaching time and separate from and in addition to any other critical care service time. (2) Septic shock: (3) Fever: (4) Fracture of right hip requiring operative repair: (5) Fracture of hip, left, closed: (6) Thrombocytopenia: (7) Alcohol abuse: (8) Chest pain: (9) Elevated AST (SGOT): (10) Altered mental state: Admission and Anticipated Discharge Date Admission Date: November 27, 2020 Subjective Patient seen and examined this morning. She is currently intubated and sedated on Versed and fentanyl. She was intubated overnight due to worsening hypoxemic respiratory failure and altered mental status. She is unable to participate in the review of systems given her level of sedation. Physical Exam Constitutional: Intubated and sedated. Eyes: Pinpoint pupils. ENMT: Endotracheal tube in place. Neck: normal visual inspection Respiratory: + tachypneic Auscultation: + diminished lung sounds and + crackles Cardiovascular: Rate/Rhythm: + tachycardic Heart Sounds: normal S1 and normal S2 Extremities: no edema Gastrointestinal (Abdomen): normal bowel sounds, soft, nontender, no hepatosplenomegaly Skin: no rashes, warm and dry Neurologic: + obtunded Psychiatric: Unable to assess due to intubation status Results & Data Results & Data ([facility]) Vital Signs (Past 12 Hours) Vital Signs Temp Pulse Resp BP Pulse Ox 12/05/20 07:20 79 22 100 12/05/20 06:00 100.6 F H 118 H 81/54 L 100 12/05/20 04:20 116 H 18 99 12/05/20 04:05 100.2 F H 128 H 23 149/102 H 100 12/05/20 03:14 99.7 F H 116 H 26 H 109/69 93 12/05/20 02:14 99.5 F 120 H 26 H 106/64 95 12/05/20 01:14 100.0 F H 121 H 24 107/72 98 12/05/20 00:14 100.2 F H 127 H 23 120/81 95 12/04/20 23:14 100.4 F H 126 H 24 121/81 94 12/04/20 22:14 100.6 F H 125 H 23 118/81 93 12/04/20 21:14 100.4 F H 120 H 24 152/[address] chest personally reviewed demonstrates small bilateral effusions and multifocal groundglass opacities. Mild adenopathy was noted. CT had demonstrated no acute findings. Otherwise, vital signs labs and imaging reviewed. Coding Level of Care Code Critical Care 1st 30-74 mins Diagnoses Fracture of right hip requiring operative repair S72.001A Fracture of hip, left, closed S72.002A Encounter type: initial encounter Thrombocytopenia D69.6 Alcohol abuse F10.10 Chest pain R07.9 Elevated AST (SGOT) R74.0 Acute hypercapnic respiratory failure J96.02 Septic shock A41.9; R65.21 Fever R50.9 Altered mental state R41.82 Time Spent (min) 43 (1) Fracture of hip, left, closed Encounter type: initial encounter Qualified Code(s): S72.002A - Fracture of unspecified part of neck of left femur, initial encounter for closed fracture
[2020-12-05] MEDS ORDERED: ALBUMIN 5% 250 ML IV ONE ×2 (09:15→10:45)
[2020-12-05] MEDS ORDERED: SUCCINYLCHOLINE CHLORIDE 20 MG/ML 10 ML VIAL IV ONE (09:16)
[2020-12-05] MEDS ORDERED: ETOMIDATE 2 MG/ML 20 ML VIAL IV ONE (09:16)
[2020-12-05] MEDS: FOLIC ACID 1 MG in SYRINGE 9.8 ML IV SCH (09:17)
[2020-12-05] MEDS: CEROVITE ADV FORMULA TAB PO SCH (09:17)
[2020-12-05] MEDS: HEPARIN SOD 5,000 UNIT/0.5 ML VIAL SQ SCH ×2 (09:17→20:13)
[2020-12-05] MEDS: busPIRone 5 MG TAB PO SCH ×2 (09:17→20:14)
[2020-12-05] MEDS: THIAMINE HCL 100 MG in SYRINGE 9 ML IV SCH (09:17)
[2020-12-05] MEDS: FLUTICASONE/VILANTEROL 100/25MCG 14 PUFFS/INHALER INH SCH (09:18)
[2020-12-05] MEDS: NICOTINE 14 MG/24 HR PATCH TD SCH (09:22)
[2020-12-05] MEDS: ASPIRIN 81 MG ECTAB PO SCH (09:26)
[2020-12-05] MEDS ORDERED: Nursing to Pharmacy Communication SCH (09:30)
[2020-12-05 09:35] LABS: Troponin I 0.139 ng/ml (0-0.045)
[2020-12-05 10:04] LABS: Prothrombin Time 10.5 Seconds (9.0-12.0)
[2020-12-05] MEDS: PHENYLEPHRINE HCL 20 MG in DEXTROSE 5% 500 ML IV SCH ×2 (10:30→22:55)
--- NOTE | 2020-12-05 10:47 | Procedure Note ---
Procedure Note Date of Service December 05, 2020 Note Right INTERNAL JUGULAR CENTRAL LINE PROCEDURE NOTE: Procedure: Internal Jugular Central Line Placement Indication: Central Drug Administration, Poor Venous Access, Multiple Lab Draws Necessary, etc. Anesthesia: Continuous Versed and fentanyl were infusing at the time of the procedure. 8 mL of 1% lidocaine was given. Consent was signed and placed on the chart prior to procedure. Indication, risks, and benefits were explained at length. A time-out was completed verifying correct patient, procedure, site, positioning, and implants(s) or special equipment if applicable. Patients right neck was cleansed and draped in the typical sterile fashion using Chloraprep. The Internal Jugular Vein and Carotid Artery were identified using ultrasound. The superficial tissue was anesthetized using 8 mL of 1% lidocaine without epinephrine under direct visualization with the ultrasound. After adequate anesthetization was achieved, the Internal Jugular vein was cannulated under direct ultrasound guidance using an introducer needle on a syringe. Good venous blood return was maintained prior to removal of syringe from introducer needle. Using Seldinger Technique, a guide wire was advanced through the introducer needle without resistance. The introducer needle was removed and ultrasound images were obtained of the guide wire within the Internal Jugular Vein and saved to the patients medical record. A small incision was made in penetrating fashion at the guide wire insertion site utilizing an 11 blade scalpel. The dilator was advanced to the vessel without resistance. The dilator was exchanged for the triple lumen catheter which was advanced into the vessel without resistance. The guide wire was removed intact from the catheter without issue. Claves were placed on each catheter tip with confirmation of good blood flow from each lumen. Each port was easily flushed with sterile saline. The catheter was placed at 15 cm and sut[address] in place. BioPatch was applied to the catheter and a sterile Tegaderm dressing was applied over the catheter with careful attention to sterility. Patient tolerated procedure well. No immediate complications were met. Chest x-ray pending. Images obtained are saved for permanent record Coding CPT Codes Tubes, Drains, and Vasc Access - Tubes, Drains, and Vasc Access: [id number] Ultrasound Guidance For Vascular ([id number]) Tubes, Drains, and Vasc Access - Tubes, Drains, and Vasc Access: [id number] Place catheter in vein superior or inferior vena cava ([id number]) [facility] [place] Procedure Codes (Charges) Tubes, Drains, and Vasc Access Procedure 1: Tubes, Drains, and Vasc Access: [id number] Ultrasound Guidance For Vascular Procedure 2: Tubes, Drains, and Vasc Access: [id number] Place catheter in vein superior or inferior vena cava
--- NOTE | 2020-12-05 10:49 | Procedure Note ---
Procedure Note Date of Service December 05, 2020 Note ARTERIAL LINE PROCEDURE NOTE: Procedure: Arterial Line Placement Indication: Monitoring on Pressors Anesthesia: Continuous Versed and fentanyl were infusing. Procedure was done emergently as the patient was intubated and sedated. She was hypotensive. Timeout was performed prior to the procedure. A time-out was completed verifying correct patient, procedure, site, positioning, and implant(s) or special equipment if applicable. Patients right wrist was prepped and draped in the usual sterile fashion. Ultrasound guidance was used to aid needle placement. A 20g Arrow arterial line was introduced into the right radial artery. Catheter was threaded, and the needle was removed with appropriate blood return. Good waveform was observed. The patient tolerated the procedure well. Blood Loss: Minimal Complications: None Coding CPT Codes Tubes, Drains, and Vasc Access - Tubes, Drains, and Vasc Access: [id number] Ultrasound Guidance For Vascular ([id number]) Tubes, Drains, and Vasc Access - Tubes, Drains, and Vasc Access: [id number] Place Catheter In Artery ([id number]) [facility] [place] Procedure Codes (Charges) Tubes, Drains, and Vasc Access Procedure 3: Tubes, Drains, and Vasc Access: [id number] Ultrasound Guidance For Vascular Procedure 4: Tubes, Drains, and Vasc Access: [id number] Place Catheter In Artery
[2020-12-05 10:53] LABS: Adenovirus PCR Not Detected (NotDetected); Bordetella parapertussis PCR Not Detected (NotDetected); Bordetella pertussis PCR Not Detected (NotDetected); Chlamydia pneumoniae PCR Not Detected (NotDetected); Coronavirus 229E PCR Not Detected (NotDetected); Coronavirus CoV-2 (COVID19)PCR Not Detected (NotDetected); Coronavirus HKU1 PCR Not Detected (NotDetected); Coronavirus NL63 PCR Not Detected (NotDetected); Coronavirus OC43PCR Not Detected (NotDetected); Human Metapneumovirus PCR Not Detected (NotDetected); Influenza A PCR Not Detected (NotDetected); Influenza B PCR Not Detected (NotDetected); Mycoplasma pneumoniae PCR Not Detected (NotDetected); Parainfluenza Virus 1 PCR Not Detected (NotDetected); Parainfluenza Virus 2 PCR Not Detected (NotDetected); Parainfluenza Virus 3 PCR Not Detected (NotDetected); Parainfluenza Virus 4 PCR Not Detected (NotDetected); Respiratory Syncytial VirusPCR Not Detected (NotDetected); Rhinovirus/Enterovirus PCR Not Detected (NotDetected)
--- NOTE | 2020-12-05 11:06 | XRay Report ---
XR chest 1V portable CLINICAL HISTORY: right IJ placement COMPARISON STUDY: 12/05/2020 FINDINGS: There is an endotracheal tube 17 mm above the sherri. There is an enteric tube which passes into the stomach. There is been interval placement of a right internal jugular central venous cathet er. The tip projects over the atriocaval junction. There is no pneumothorax. There are persistent shona ateral pulmonary airspace opacities with perhaps slight worsening on the right.[ IMPRESSION: 1. Interval placement of a right internal jugular central venous catheter. Tip projects over the atri ocaval junction. There is no pneumothorax 2. Bilateral pulmonary airspace opacities ACT 112: Negative or not required by law. Electronically signed by: Gregorio Summers M.D. 12/05/2020 11:05 AM
[2020-12-05] MEDS: ASPIRIN 81 MG CHEW NG SCH (11:09)
[2020-12-05] MEDS: PEPTAMEN INTENSE VHP 1.0 CAL 1,000 ML BAG GT SCH (12:31)
--- NOTE | 2020-12-05 12:33 | XCELERA ---
[id number] \\[id number]
--- NOTE | 2020-12-05 13:56 | Electrocardiogram Report ---
Test Reason : Blood Pressure : / mmHG Vent. Rate : 121 BPM Atrial Rate : 121 BPM P-R Int : 116 ms QRS Dur : 080 ms QT Int : 308 ms P-R-T Axes : 076 096 082 degrees QTc Int : 437 ms Sinus tachycardia Rightward axis Abnormal ECG When compared with ECG of 30-NOV-2020 12:01, No significant change was found Confirmed by Raghu Mcgraw ([id number]) on 12/05/2020 1:55:28 PM Referred By: REFERRED SELF Confirmed By:Raghu Mcgraw
[2020-12-05] MEDS ORDERED: FUROSEMIDE 20 MG in SYRINGE 0 ML IV ONE (14:45)
[2020-12-05] MEDS: PIPERACILLIN/TAZOBACTAM 3.375 GM in DEXTROSE 5% 100 ML IV SCH ×2 (14:47→20:15)
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
[2020-12-05] MEDS: MONTELUKAST SODIUM 10 MG TABLET PO SCH (20:14)
[2020-12-05] MEDS: ACETAMINOPHEN 325 MG TAB PO PRN (20:19)
[2020-12-05] MEDS ORDERED: ASPIRIN 81 MG CHEW NG SCH (21:00)
[2020-12-05] MEDS ORDERED: DEXMEDETOMIDINE HCL 200 MCG in SODIUM CHLORIDE 0.9% 48 ML IV SCH (22:45)
[2020-12-06] MEDS: ACETAMINOPHEN 325 MG TAB PO PRN ×2 (00:55→05:54)
[2020-12-06 03:22] LABS: Hematocrit (blood only) 24.5 % (37-47); Hemoglobin 8.3 g/dL (12.0-16.0); Mean Corpuscular Hemoglobin 31.3 pg (25-34); Mean Corpuscular Hgb Conc 33.9 g/dL (32-36); Mean Corpuscular Volume 92.5 fL (80-100); Mean Platelet Volume 9.3 fL (7.4-10.4); Nucleated RBC # (auto) 0.04 K/uL (0-0); Nucleated RBC % (auto) 0.3 %; Platelet Count 470 K/uL (130-400); RDW Coefficient of Variation 14.1 % (11.5-14.5); RDW Standard Deviation 47.9 fL (36.4-46.3); Red Blood Count 2.65 M/uL (4.2-5.4); White Blood Count 15.68 K/uL (4.8-10.8)
[2020-12-06 03:49] LABS: BUN Creatinine Ratio 15.8 (10-20); Blood Urea Nitrogen 5 mg/dl (7-18); Calcium 8.7 mg/dl (8.5-10.1); Carbon Dioxide 38 mmol/L (21-32); Chloride 90 mmol/L (98-107); Creatinine Clr Calc Pharmacy 167.6 ml/min; Est GFR (African American) > 150.0 ml/min; Est GFR (Non-African American) 134.5 ml/min; Glucose 115 mg/dl (70-99); Magnesium 1.4 mg/dl (1.8-2.4); Potassium 2.4 mmol/L (3.5-5.1); Sodium 131 mmol/L (136-145)
[2020-12-06 03:50] LABS: Phosphorus 1.2 mg/dl (2.5-4.9)
[2020-12-06] MEDS ORDERED: POTASSIUM PHOS 3 MMOL/1 ML INFUSION IV STA (03:52)
[2020-12-06] MEDS ORDERED: POTASSIUM CHLORIDE 20 MEQ/15 ML UDC PO STA (03:52)
[2020-12-06 03:55] LABS: ALC (manual) 1.63 K/uL (1.2-3.4); ANC (manual) 10.91 K/uL (1.4-6.5); Dohle Bodies 1+; Lymphocytes # (manual) 1.63 K/uL (1.2-3.4); Lymphocytes % (manual) 10.4 %; Metamyelocytes # (manual) 0.27 K/uL (0-0); Metamyelocytes % (manual) 1.7 %; Monocytes # (manual) 2.32 K/uL (0.11-0.59); Monocytes % (manual) 14.8 %; Myelocytes # (manual) 0.55 K/uL (0-0); Myelocytes % (manual) 3.5 %; Neutrophils # (manual) 10.91 K/uL (1.4-6.5); Neutrophils % (manual) 69.6 %; Polychromasia 1+; Toxic Granulation 1+
[2020-12-06] MEDS ORDERED: POTASSIUM PHOSPHATE 30 MMOL in SODIUM CHLORIDE 0.9% 500 ML IV ONE (04:00)
[2020-12-06] MEDS: MAGNESIUM SULFATE / D5W 1 GM/100 ML BAG IV SCH ×3 (04:02→08:04)
[2020-12-06 04:54] LABS: iSTAT Art Bld Gas pCO2 Correct 42 mmHg (35-46); iSTAT Art Bld Gas pH Corrected 7.554 (7.35-7.45); iSTAT Arterial Blood Gas HCO3 37 meg/L (19-24); iSTAT Arterial Blood Gas pCO2 41 mmHg (35-46); iSTAT Arterial Blood Gas pH 7.57 (7.35-7.45); iSTAT Arterial Blood Gas pO2 58 mmHg (80-95); iSTAT Arterial Blood Gas pO2 C 62; iSTAT Carbon Dioxide 38 mmol/L (24-31); iSTAT FiO2 25 %; iSTAT Hematocrit 26 % (37-47); iSTAT Hemoglobin 8.8 g/dl (12.0-16.0); iSTAT Potassium 3.2 mmol/L (3.3-5.0); iSTAT Site Art Line; iSTAT Sodium 131 mmol/L (135-144)
[2020-12-06] MEDS: PIPERACILLIN/TAZOBACTAM 3.375 GM in DEXTROSE 5% 100 ML IV SCH ×3 (05:53→20:22)
[2020-12-06] MEDS: PHENYLEPHRINE HCL 20 MG in DEXTROSE 5% 500 ML IV SCH ×4 (07:53→14:43)
--- NOTE | 2020-12-06 08:11 | Critical Care Progress Note ---
Date of Service December 06, 2020 Assessment & Plan (1) Acute hypercapnic respiratory failure: Plan: Patient discussed on multidisciplinary rounds. Reason Critically Ill: Naun is a 50-year-old female with a notable history of chronic ongoing alcoholism (6 beers daily x 30 years), tobacco abuse, moderate persistent asthma who presented to [facility] for evaluation of a hip fracture and an EtOH level of 295, subsequently found to have a left proximal intertrochanteric fracture of the femur, now status post ORIF on 11/28. Her course has been complicated by acute blood loss anemia (11->7.3) as well as continued agitation, confusion, and tachycardia in setting of suspected alcohol withdrawal and a postoperative state. She requires ICU level care out of concern for worsening alcohol withdrawal. Neuro - Currently intubated and sedated with Precedex. Fentanyl has been shut off. She does have an element of alcohol withdrawal. Continue thiamine and folic acid. Less likely, but less can be considered is the possibility of meningitis given her fever and altered mental status. CT of her head 12/05/2020 was without acute findings. She did complete a phenobarb taper over 3 days. Plan to potentially extubate today. Cardiac - Tachycardia is likely secondary to component of alcohol withdrawal and sepsis. This is improved. Currently requiring low doses of phenylephrine likely related to hypotension from sedation. Echocardiogram with normal ejection fraction. Respiratory - Patient is currently intubated and sedated mostly for airway protection and acute hypercapnic respiratory failure. She is requiring minimal vent support. Likely mild component of CHF. Possible aspiration pneumonitis. Procalcitonin is elevated. Urine Legionella antigen is pending. GI - We will hold off tube feeds today given the possibility of extubation. If she fails spontaneous breathing trial, will initiate tube feeds. There was a concern of an ileus earlier this hospitalization. RENAL/LYTES - * Suspect hyponatremia is secondary to alcohol use (chronic) * Replete lytes as needed per ICU protocol * No MILDRED - * No acute concerns at this time ENDO - * ICU Hyperglycemia protocol HEME - Hemoglobin dropped today possibly related to hemodilution. Will trend. No obvious signs of bleeding. Currently on heparin 5000 units twice daily DVT prophylaxis. ID - Blood cultures and sputum cultures negative to date. Urinalysis was positive for nitrites and leukoesterase. Cultures pending. Antibiotics have been broadened to Zosyn and azithromycin. Respiratory bio fire panel is negative. Urine Legionella is pending. Consider lumbar puncture if no significant improvement. Repeat procalcitonin tomorrow. MSK - Left Hip Fracture s/p ORIF * POD-6 s/p ORIF of L hip * When able with above mgmt -- WBAT to LLE, using crutches / walker to assist with ambulation * PT, OT for strengthening and ROM LINES/IV ACCESS - PIVs intact. RIJ CVL and R radial arterial line placed 12/05/20. Castillo in place. DVT PROPHYLAXIS - Heparin SQ 5000U q12h CRITICAL CARE TIME - I have personally spent 35 minutes of critical care time in the direct management of this patient. This is a life/limb threatening event. This includes time spent evaluating patient, direct bedside care, chart review, placing orders, interpretation of diagnostic studies, discussion with consultants, patie nt, and family members, as well as other required patient management activities. This time is exclusive of all separately billable procedures, and teaching time and separate from and in addition to any other critical care service time. (2) Septic shock: (3) Fever: (4) Fracture of right hip requiring operative repair: (5) Fracture of hip, left, closed: (6) Thrombocytopenia: (7) Alcohol abuse: (8) Chest pain: (9) Elevated AST (SGOT): (10) Altered mental state: Admission and Anticipated Discharge Date Admission Date: November 27, 2020 Subjective Patient seen and examined this morning. She is currently on Precedex and fentanyl. She does open her eyes to deep stimulation. We are currently weaning the fentanyl off in anticipation of potential spontaneous breathing trial. She did have some fevers overnight which subsided as night progressed. No significant events. She is currently on a low-dose of phenylephrine. Review of Systems Review of Systems: Unobtainable due to intubation status and sedation. Physical Exam Constitutional: Intubated and sedated. Eyes: Pinpoint pupils. ENMT: Endotracheal tube in place. Neck: normal visual inspection Respiratory: + tachypneic Auscultation: + diminished lung sounds Cardiovascular: Rate/Rhythm: + tachycardic Heart Sounds: normal S1 and normal S2 Extremities: no edema Gastrointestinal (Abdomen): normal bowel sounds, soft, nontender, no hepatosplenomegaly Skin: no rashes, warm and dry Neurologic: + obtunded Psychiatric: Unable to assess due to intubation status Results & Data Results & Data ([facility]) Vital Signs (Past 12 Hours) Vital Signs Temp Pulse Resp BP Pulse Ox 12/06/20 07:48 62 15 98 12/06/20 06:11 99.0 F 61 112/65 99 12/06/20 05:56 99.1 F 70 104/65 97 12/06/20 05:41 99.1 F 74 104/63 97 12/06/20 05:15 99.7 F H 95 H 12/06/20 04:59 14 12/06/20 04:56 99.9 F H 76 117/69 96 12/06/20 04:41 100.0 F H 87 99/66 L 99 12/06/20 04:26 100.2 F H 80 100/64 94 12/06/20 04:11 100.4 F H 79 118/70 96 12/06/20 03:56 100.4 F H 68 115/69 96 12/06/20 03:41 100.6 F H 69 117/65 96 12/06/20 03:26 100.6 F H 69 121/68 97 12/06/20 03:11 100.8 F H 72 104/61 96 12/06/20 03:00 77 18 95 12/06/20 02:56 100.9 F H 79 93/56 L 96 12/06/20 02:41 100.9 F H 73 93/58 L 96 12/06/20 02:26 101.1 F H 76 93/60 L 95 12/06/20 02:10 101.3 F H 79 98/61 L 95 12/06/20 01:56 101.3 F H 75 98/58 L 96 12/06/20 01:41 101.5 F H 72 102/60 96 12/06/20 01:25 101.5 F H 77 106/64 97 12/06/20 01:11 101.5 F H 79 109/67 96 12/06/20 00:55 101.7 F H 83 105/63 97 12/06/20 00:40 101.7 F H 81 104/60 96 12/06/20 00:10 101.5 F H 90 102/59 L 93 12/05/20 23:41 101.7 F H 91 H 95/57 L 94 07/19/21 23:21 76 12/05/20 23:15 92 H 18 96 12/05/20 23:11 101.7 F H 92 H 103/66 98 12/05/20 22:41 101.5 F H 82 111/60 97 12/05/20 22:10 101.3 F H 77 104/62 98 12/05/20 21:55 101.3 F H 83 89/57 L 97 12/05/20 21:40 101.1 F H 91 H 90/55 L 97 12/05/20 21:25 101.1 F H 98 H 84/54 L 96 12/05/20 21:10 101.1 F H 110 H 94/56 L 96 12/05/20 20:55 100.9 F H 114 H 108/64 94 12/05/20 20:40 101.1 F H 123 H 99/59 L 93 12/05/20 20:15 100.9 F H 115 H 112/72 96 Chest x-ray from 12/06/2020 reviewed in comparison to yesterday. Mildly improved interstitial prominence. Left upper lobe interstitial opacities noted. Coding Level of Care Code Critical Care 1st 30-74 mins Diagnoses Acute hypercapnic respiratory failure J96.02 Septic shock A41.9; R65.21 Fever R50.9 Fracture of right hip requiring operative repair S72.001A Fracture of hip, left, closed S72.002A Encounter type: initial encounter Thrombocytopenia D69.6 Alcohol abuse F10.10 Chest pain R07.9 Elevated AST (SGOT) R74.0 Altered mental state R41.82 Time Spent (min) 35 (1) Fracture of hip, left, closed Encounter type: initial encounter Qualified Code(s): S72.002A - Fracture of unspecified part of neck of left femur, initial encounter for closed fracture
--- NOTE | 2020-12-06 08:19 | XRay Report ---
SINGLE VIEW CHEST CLINICAL HISTORY: Respiratory failure. FINDINGS: An AP, portable, upright chest radiograph is compared to chest x-ray and chest CT dated 11/17. An endotracheal tube, an enteric tube, and a right internal jugular central venous catheter a re unchanged in position. The cardiomediastinal silhouette is unremarkable. Bilateral airspace opacit ies are similar to previous. This is most confluent in the left upper lung. No large pleural effusion or pneumothorax is seen. The bony thorax is grossly intact. IMPRESSION: 1. Stable lines and tubes. 2. Multifocal airspace opacities are similar to yesterday. ACT 112: Negative or not required by law. Electronically signed by: Aureliano Bull M.D. 12/06/2020 8:18 AM
[2020-12-06] MEDS: FOLIC ACID 1 MG in SYRINGE 9.8 ML IV SCH (08:48)
[2020-12-06] MEDS: AZITHROMYCIN 250 MG in DEXTROSE 5% 250 ML IV SCH (08:48)
[2020-12-06] MEDS: ASPIRIN 81 MG CHEW NG SCH (08:49)
[2020-12-06] MEDS: FLUTICASONE/VILANTEROL 100/25MCG 14 PUFFS/INHALER INH SCH (08:49)
[2020-12-06] MEDS: HEPARIN SOD 5,000 UNIT/0.5 ML VIAL SQ SCH ×2 (08:50→20:21)
[2020-12-06] MEDS: NICOTINE 14 MG/24 HR PATCH TD SCH (08:50)
[2020-12-06] MEDS: CEROVITE ADV FORMULA TAB PO SCH (08:50)
[2020-12-06] MEDS: busPIRone 5 MG TAB PO SCH ×2 (08:50→20:20)
[2020-12-06] MEDS: THIAMINE HCL 100 MG in SYRINGE 9 ML IV SCH (09:06)
[2020-12-06 09:49] LABS: BUN Creatinine Ratio 15.5 (10-20); Blood Urea Nitrogen 5 mg/dl (7-18); Calcium 8.5 mg/dl (8.5-10.1); Carbon Dioxide 31 mmol/L (21-32); Chloride 94 mmol/L (98-107); Creatinine Clr Calc Pharmacy 156.5 ml/min; Est GFR (African American) > 150.0 ml/min; Est GFR (Non-African American) 134.5 ml/min; Glucose 113 mg/dl (70-99); Magnesium 2.8 mg/dl (1.8-2.4); Phosphorus 4.6 mg/dl (2.5-4.9); Potassium 3.6 mmol/L (3.5-5.1); Sodium 132 mmol/L (136-145)
[2020-12-06] MEDS: PEPTAMEN INTENSE VHP 1.0 CAL 1,000 ML BAG GT SCH (11:37)
[2020-12-06 11:58] LABS: Hematocrit (blood only) 27.1 % (37-47); Hemoglobin 9.1 g/dL (12.0-16.0); Mean Corpuscular Hemoglobin 31.6 pg (25-34); Mean Corpuscular Hgb Conc 33.6 g/dL (32-36); Mean Corpuscular Volume 94.1 fL (80-100); Mean Platelet Volume 9.1 fL (7.4-10.4); Platelet Count 475 K/uL (130-400); RDW Coefficient of Variation 14.2 % (11.5-14.5); RDW Standard Deviation 49.4 fL (36.4-46.3); Red Blood Count 2.88 M/uL (4.2-5.4); White Blood Count 16.88 K/uL (4.8-10.8)
[2020-12-06 12:17] LABS: Basophils # (auto) 0.11 K/uL (0-0.2); Basophils % (auto) 0.7 %; Eosinophils # (auto) 0.15 K/uL (0-0.5); Eosinophils % (auto) 0.9 %; Immature Granulocytes # (auto) 0.42 K/uL (0.00-0.02); Immature Granulocytes % (auto) 2.5 %; Lymphocytes # (auto) 1.26 K/uL (1.2-3.4); Lymphocytes % (auto) 7.5 %; Monocytes # (auto) 3.39 K/uL (0.11-0.59); Monocytes % (auto) 20.1 %; Neutrophils # (auto) 11.55 K/uL (1.4-6.5); Neutrophils % (auto) 68.3 %; Polychromasia 1+
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
[2020-12-06] MEDS: POTASSIUM CHLORIDE / WTR 10 MEQ/100 ML PLCT IV SCH ×2 (16:41→17:43)
[2020-12-06] MEDS: MONTELUKAST SODIUM 10 MG TABLET PO SCH (20:21)
[2020-12-07 04:45] LABS: Hemoglobin 8.6 g/dL (12.0-16.0); Mean Corpuscular Hemoglobin 30.8 pg (25-34); Mean Corpuscular Hgb Conc 33.1 g/dL (32-36); Mean Corpuscular Volume 93.2 fL (80-100); Mean Platelet Volume 9.1 fL (7.4-10.4); Nucleated RBC # (auto) 0.02 K/uL (0-0); Nucleated RBC % (auto) 0.1 %; Platelet Count 525 K/uL (130-400); RDW Coefficient of Variation 14.5 % (11.5-14.5); RDW Standard Deviation 50.1 fL (36.4-46.3); Red Blood Count 2.79 M/uL (4.2-5.4); White Blood Count 16.13 K/uL (4.8-10.8)
[2020-12-07] MEDS: PIPERACILLIN/TAZOBACTAM 3.375 GM in DEXTROSE 5% 100 ML IV SCH (04:57)
[2020-12-07 05:04] LABS: BUN Creatinine Ratio 16.6 (10-20); Blood Urea Nitrogen 5 mg/dl (7-18); Calcium 9.1 mg/dl (8.5-10.1); Carbon Dioxide 33 mmol/L (21-32); Chloride 100 mmol/L (98-107); Creatinine Clr Calc Pharmacy 151.4 ml/min; Est GFR (African American) > 150.0 ml/min; Glucose 102 mg/dl (70-99); Potassium 3.3 mmol/L (3.5-5.1); Sodium 135 mmol/L (136-145)
[2020-12-07 05:10] LABS: Phosphorus 2.6 mg/dl (2.5-4.9)
[2020-12-07] MEDS: POTASSIUM CHLORIDE / WTR 10 MEQ/100 ML PLCT IV SCH ×4 (06:10→09:34)
[2020-12-07] MEDS ORDERED: ATIVAN IV ALCOHOL WITHDRAWL IV PRN (07:50)
[2020-12-07] MEDS ORDERED: LORazepam 3 MG/6 ML VIAL IV PRN (07:50)
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
[2020-12-07] MEDS: THIAMINE HCL 100 MG in SYRINGE 9 ML IV SCH (08:23)
[2020-12-07] MEDS: FOLIC ACID 1 MG in SYRINGE 9.8 ML IV SCH (08:23)
[2020-12-07] MEDS: NICOTINE 14 MG/24 HR PATCH TD SCH (08:23)
[2020-12-07] MEDS: HEPARIN SOD 5,000 UNIT/0.5 ML VIAL SQ SCH ×2 (08:24→21:00)
[2020-12-07] MEDS: CEROVITE ADV FORMULA TAB PO SCH (08:26)
[2020-12-07] MEDS: busPIRone 5 MG TAB PO SCH ×2 (08:26→21:00)
[2020-12-07] MEDS: ASPIRIN 81 MG CHEW NG SCH (08:26)
[2020-12-07] MEDS: AZITHROMYCIN 250 MG in DEXTROSE 5% 250 ML IV SCH (08:29)
[2020-12-07] MEDS: LORazepam 2 MG/4 ML VIAL IV PRN ×3 (08:45→18:04)
[2020-12-07] MEDS: FLUTICASONE/VILANTEROL 100/25MCG 14 PUFFS/INHALER INH SCH (08:58)
[2020-12-07] MEDS: PEPTAMEN INTENSE VHP 1.0 CAL 1,000 ML BAG GT SCH (10:15)
[2020-12-07] MEDS: cefTRIAXone SODIUM 1,000 MG in DEXTROSE 5% 50 ML IV SCH (12:16)
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
[2020-12-07] MEDS: MONTELUKAST SODIUM 10 MG TABLET PO SCH (21:00)
[2020-12-08] MEDS: LORazepam 1 MG/2 ML VIAL IV PRN ×3 (00:14→23:24)
[2020-12-08 05:21] LABS: Hematocrit (blood only) 28.4 % (37-47); Hemoglobin 9.2 g/dL (12.0-16.0); Mean Corpuscular Hemoglobin 30.7 pg (25-34); Mean Corpuscular Hgb Conc 32.4 g/dL (32-36); Mean Corpuscular Volume 94.7 fL (80-100); Mean Platelet Volume 9.1 fL (7.4-10.4); Platelet Count 650 K/uL (130-400); RDW Coefficient of Variation 14.8 % (11.5-14.5); RDW Standard Deviation 50.8 fL (36.4-46.3); White Blood Count 14.21 K/uL (4.8-10.8)
[2020-12-08 05:49] LABS: Alanine Aminotransferase 23 U/L (12-78); Albumin Level 2.9 gm/dl (3.4-5.0); Aspartate Aminotransferase 43 U/L (15-37); BUN Creatinine Ratio 24.3 (10-20); Blood Urea Nitrogen 7 mg/dl (7-18); Calcium 9.2 mg/dl (8.5-10.1); Carbon Dioxide 25 mmol/L (21-32); Chloride 101 mmol/L (98-107); Creatinine Clr Calc Pharmacy 171.5 ml/min; Est GFR (African American) > 150.0 ml/min; Est GFR (Non-African American) 137.5 ml/min; Glucose 97 mg/dl (70-99); Magnesium 1.8 mg/dl (1.8-2.4); Potassium 3.6 mmol/L (3.5-5.1); Sodium 133 mmol/L (136-145)
[2020-12-08 05:55] LABS: Albumin Globulin Ratio 0.6 (0.9-2); Alkaline Phosphatase 141 U/L (45-117); Globulin 4.5 gm/dl (2.5-4.0); Phosphorus 3.5 mg/dl (2.5-4.9); Total Protein 7.4 gm/dl (6.4-8.2)
[2020-12-08 05:57] LABS: Basophils # (auto) 0.05 K/uL (0-0.2); Basophils % (auto) 0.4 %; Eosinophils # (auto) 0.37 K/uL (0-0.5); Eosinophils % (auto) 2.6 %; Immature Granulocytes # (auto) 0.75 K/uL (0.00-0.02); Immature Granulocytes % (auto) 5.3 %; Lymphocytes # (auto) 1.72 K/uL (1.2-3.4); Lymphocytes % (auto) 12.1 %; Monocytes # (auto) 2.37 K/uL (0.11-0.59); Monocytes % (auto) 16.7 %; Neutrophils # (auto) 8.95 K/uL (1.4-6.5); Neutrophils % (auto) 62.9 %; Polychromasia 1+
[2020-12-08] MEDS: POTASSIUM CHLORIDE / WTR 10 MEQ/100 ML PLCT IV SCH ×2 (06:39→09:06)
[2020-12-08] MEDS: THIAMINE HCL 100 MG in SYRINGE 9 ML IV SCH (08:48)
[2020-12-08] MEDS: FOLIC ACID 1 MG in SYRINGE 9.8 ML IV SCH (08:48)
[2020-12-08] MEDS: FLUTICASONE/VILANTEROL 100/25MCG 14 PUFFS/INHALER INH SCH (08:52)
[2020-12-08] MEDS: HEPARIN SOD 5,000 UNIT/0.5 ML VIAL SQ SCH ×2 (08:52→20:02)
[2020-12-08] MEDS: AZITHROMYCIN 250 MG in DEXTROSE 5% 250 ML IV SCH (08:53)
[2020-12-08] MEDS: ASPIRIN 81 MG CHEW NG SCH (08:55)
[2020-12-08] MEDS: CEROVITE ADV FORMULA TAB PO SCH (08:55)
[2020-12-08] MEDS: busPIRone 5 MG TAB PO SCH ×2 (08:55→20:01)
[2020-12-08] MEDS: NICOTINE 14 MG/24 HR PATCH TD SCH (08:56)
--- NOTE | 2020-12-08 10:21 | Critical Care Progress Note ---
Date of Service December 08, 2020 Assessment & Plan (1) Acute hypercapnic respiratory failure: Plan: Patient discussed on multidisciplinary rounds. Reason Critically Ill: Naun is a 50-year-old female with a notable history of chronic ongoing alcoholism (6 beers daily x 30 years), tobacco abuse, moderate persistent asthma who presented to [facility] for evaluation of a hip fracture and an EtOH level of 295, subsequently found to have a left proximal intertrochanteric fracture of the femur, now status post ORIF on 11/28. Her course has been complicated by acute blood loss anemia (11->7.3) as well as continued agitation, confusion, and tachycardia in setting of suspected alcohol withdrawal and a postoperative state. She requires ICU level care out of concern for worsening alcohol withdrawal. Neuro - Continue alcohol withdrawal protocol. Continue thiamine and folic acid. Cardiac - Tachycardia is likely secondary to component of alcohol withdrawal and sepsis. This is improved. Not on vasoactive medications. Respiratory - Requiring minimal supplemental oxygen support. Urine Legionella antigen not detected. GI - We will try and advance feeds. RENAL/LYTES - No significant issues. Hyponatremia present likely related to alcoholism. Hypokalemia has been corrected. - Castillo catheter in place. ENDO - ICU Hyperglycemia protocol HEME - Patient with anemia of chronic disease. Hemoglobin lower than baseline due to recent surgery. No obvious signs of bleeding. Thrombocytopenia has resolved. She has worsening thrombocytosis. Currently on heparin 5000 units twice daily for DVT prophylaxis. ID - Blood cultures and sputum cultures negative to date. Urinalysis was positive for nitrites and leukoesterase. Urine cultures were not sent. Continue rocephin and azithromycin. Respiratory bio fire panel is negative. Urine Legionella is negative. Procalcitonin trending down to 0.51. MSK - Left Hip Fracture s/p ORIF * POD-8 s/p ORIF of L hip * When able with above mgmt -- WBAT to LLE, using crutches / walker to assist with ambulation * PT, OT for strengthening and ROM LINES/IV ACCESS - PIVs intact. RIJ CVL line placed 12/05/20. Castillo in place. We will aim to remove right IJ central venous line and Castillo catheter. DVT PROPHYLAXIS - Heparin SQ 5000U q12h Possible transfer later today to telemetry. (2) Septic shock: (3) Fever: (4) Fracture of right hip requiring operative repair: (5) Fracture of hip, left, closed: (6) Thrombocytopenia: (7) Alcohol abuse: (8) Chest pain: (9) Elevated AST (SGOT): (10) Altered mental state: (11) Alcohol withdrawal delirium: Admission and Anticipated Discharge Date Admission Date: November 27, 2020 Subjective She is frail appearing. She is lying in bed. She mumbles to herself at times. Currently on as needed Ativan. She is weak and has difficulty sitting up in bed. Review of Systems Review of Systems: Largely unobtainable due to patient's altered mental status. Physical Exam Constitutional: Frail appearing. Laying in bed. Eyes: PERRL, conjunctivae normal, anicteric sclerae ENMT: external ear and nose normal, oropharynx normal Neck: normal visual inspection Respiratory: normal respiratory effort, lungs clear to auscultation Cardiovascular: Rate/Rhythm: regular rhythm and + tachycardic Heart Sounds: normal S1 and normal S2 Extremities: no edema Gastrointestinal (Abdomen): normal bowel sounds, soft, nontender, no hepatosplenomegaly Musculoskeletal: no cyanosis or clubbing, extremities motor strength 5/5 Skin: no rashes, warm and dry Neurologic: CN's II-XI intact bilaterally and + confused Speech / Cognition: + abnormal cognition Psychiatric: Orientation: alert; + not oriented x 3 Results & Data Results & Data ([facility]) Vital Signs (Past 12 Hours) Vital Signs Temp Pulse BP Pulse Ox 12/08/20 08:00 98.2 F 12/08/20 05:11 98.2 F 112 H 121/81 100 12/08/20 04:11 110 H 132/81 97 12/08/20 03:11 98.1 F 122 H 127/81 97 12/08/20 02:11 98.1 F 113 H 129/78 96 12/08/20 01:11 98.1 F 115 H 118/81 94 12/08/20 00:11 116 H 142/82 H 95 12/07/20 23:11 98.2 F 117 H 141/82 H 95 12/07/20 22:54 114 H 12/07/20 22:28 110 H Vital signs, labs and imaging personally reviewed Coding Level of Care Code 38662 Subseq Hosp Care Lvl 3 Diagnoses Acute hypercapnic respiratory failure J96.02 Septic shock A41.9; R65.21 Fever R50.9 Fracture of right hip requiring operative repair S72.001A Fracture of hip, left, closed S72.002A Encounter type: initial encounter Thrombocytopenia D69.6 Alcohol abuse F10.10 Chest pain R07.9 Elevated AST (SGOT) R74.0 Altered mental state R41.82 Alcohol withdrawal delirium F10.231 (1) Fracture of hip, left, closed Encounter type: initial encounter Qualified Code(s): S72.002A - Fracture of unspecified part of neck of left femur, initial encounter for closed fracture
[2020-12-08] MEDS: PEPTAMEN INTENSE VHP 1.0 CAL 1,000 ML BAG GT SCH (12:33)
[2020-12-08] MEDS: cefTRIAXone SODIUM 1,000 MG in DEXTROSE 5% 50 ML IV SCH (13:21)
[2020-12-08] MEDS: LORazepam 2 MG/4 ML VIAL IV PRN ×2 (14:00→15:09)
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
[2020-12-08] MEDS: MONTELUKAST SODIUM 10 MG TABLET PO SCH (20:01)
[2020-12-09] MEDS: LORazepam 1 MG/2 ML VIAL IV PRN ×5 (02:11→22:51)
[2020-12-09 05:19] LABS: Hematocrit (blood only) 29.2 % (37-47); Hemoglobin 9.7 g/dL (12.0-16.0); Mean Corpuscular Hemoglobin 31.3 pg (25-34); Mean Corpuscular Hgb Conc 33.2 g/dL (32-36); Mean Corpuscular Volume 94.2 fL (80-100); Mean Platelet Volume 9.3 fL (7.4-10.4); Platelet Count 770 K/uL (130-400); RDW Coefficient of Variation 14.8 % (11.5-14.5); RDW Standard Deviation 50.5 fL (36.4-46.3); White Blood Count 14.75 K/uL (4.8-10.8)
[2020-12-09 05:34] LABS: Basophils # (auto) 0.06 K/uL (0-0.2); Basophils % (auto) 0.4 %; Eosinophils # (auto) 0.55 K/uL (0-0.5); Eosinophils % (auto) 3.7 %; Immature Granulocytes # (auto) 1.18 K/uL (0.00-0.02); Lymphocytes # (auto) 1.91 K/uL (1.2-3.4); Lymphocytes % (auto) 12.9 %; Monocytes # (auto) 2.02 K/uL (0.11-0.59); Monocytes % (auto) 13.7 %; Neutrophils # (auto) 9.03 K/uL (1.4-6.5); Neutrophils % (auto) 61.3 %; Polychromasia 1+
[2020-12-09 05:40] LABS: Blood Urea Nitrogen 8 mg/dl (7-18); Calcium 9.3 mg/dl (8.5-10.1); Carbon Dioxide 25 mmol/L (21-32); Chloride 101 mmol/L (98-107); Creatinine Clr Calc Pharmacy 171.5 ml/min; Est GFR (African American) > 150.0 ml/min; Est GFR (Non-African American) 137.5 ml/min; Glucose 98 mg/dl (70-99); Magnesium 1.8 mg/dl (1.8-2.4); Potassium 3.8 mmol/L (3.5-5.1); Sodium 133 mmol/L (136-145)
[2020-12-09 05:45] LABS: Phosphorus 4.3 mg/dl (2.5-4.9)
[2020-12-09] MEDS: FOLIC ACID 1 MG in SYRINGE 9.8 ML IV SCH (07:33)
[2020-12-09] MEDS: THIAMINE HCL 100 MG in SYRINGE 9 ML IV SCH (07:33)
[2020-12-09] MEDS: ASPIRIN 81 MG CHEW NG SCH (07:34)
[2020-12-09] MEDS: AZITHROMYCIN 250 MG in DEXTROSE 5% 250 ML IV SCH (07:34)
[2020-12-09] MEDS: busPIRone 5 MG TAB PO SCH ×2 (07:35→20:23)
[2020-12-09] MEDS: FLUTICASONE/VILANTEROL 100/25MCG 14 PUFFS/INHALER INH SCH (07:35)
[2020-12-09] MEDS: CEROVITE ADV FORMULA TAB PO SCH (07:36)
[2020-12-09] MEDS: HEPARIN SOD 5,000 UNIT/0.5 ML VIAL SQ SCH ×2 (07:36→20:23)
[2020-12-09] MEDS: NICOTINE 14 MG/24 HR PATCH TD SCH (07:36)
--- NOTE | 2020-12-09 10:17 | Orthopedic Progress Note ---
Date of Service December 09, 2020 Assessment & Plan (1) Fracture of hip, left, closed: Plan: S/P ORIF left hip 11-30-20 She may be out of bed when medically safe, WBAT LLE Use walker or crutches to assist with ambulation. Full motion of left hip, knee, and ankle. Ice to left thigh as needed pain. Zip line removed. Steri strips applied. Covered with tefla and tegaderm. Keep covered while in hospital and replace as needed. Once DC'd can remove and leave open to air. Can shower but do not submerge. Follow up as scheduled with VENITA Lee PA-C on 01-13-21 at 2:00 pm. Please contact [facility] at [phone] if any questions or concerns arise. I, Dr. Jaquez, saw and examined the patient and agree with the above findings and plan of care I discussed with my PA. Present on Admission?: Yes Admission and Anticipated Discharge Date Admission Date: November 27, 2020 Subjective The patient was seen and examined in ICU with Dr Jaquez. Lethargic with little communication. Doesnt respond to commands. Per nursings, not eating or drinking much. Has not been out of bed. Per nursing, tried to sit up with little stamina. Physical Exam Musculoskeletal: Left hip exam: dressings were C/D/I. upon removal, incision healing nicely. no redness or bruising or signs of infection. patient does not respond to log rolling of hip. B LE with air boots. Calves soft. Minimal pitting edema. Palpable DP and PT pulses 2+, brisk capillary refill. Results & Data ([facility]) Vital Signs (Past 12 Hours) Vital Signs Temp Pulse BP Pulse Ox 12/09/20 08:06 37.2 C 12/09/20 04:11 36.9 C 109 H 104/70 96 12/09/20 00:11 36.8 C 114 H 126/84 92 Laboratory Results 12/09/20 12/09/20 Range/Units 04:40 04:40 WBC 14.75 H (4.8-10.8) K/uL RBC 3.10 L (4.2-5.4) M/uL Hgb 9.7 L (12.0-16.0) g/dL Hct 29.2 L (37-47) % MCV 94.2 (80-100) fL MCH 31.3 (25-34) pg MCHC 33.2 (32-36) g/dL RDW Std Deviation 50.5 H (36.4-46.3) fL RDW Coeff of Eloy 14.8 H (11.5-14.5) % Plt Count 770 H (130-400) K/uL MPV 9.3 (7.4-10.4) fL Immature Gran % (Auto) 8.0 % Neut % (Auto) 61.3 % Lymph % (Auto) 12.9 % [place] % (Auto) 13.7 % Eos % (Auto) 3.7 % Baso % (Auto) 0.4 % Neut # (Auto) 9.03 H (1.4-6.5) K/uL Lymph # (Auto) 1.91 (1.2-3.4) K/uL [place] # (Auto) 2.02 H (0.11-0.59) K/uL Eos # (Auto) 0.55 H (0-0.5) K/uL Baso # (Auto) 0.06 (0-0.2) K/uL Immature Gran # (Auto) 1.18 H (0.00-0.02) K/uL Polychromasia 1+ Sodium 133 L (136-145) mmol/L Potassium 3.8 (3.5-5.1) mmol/L Chloride 101 (98-107) mmol/L Carbon Dioxide 25 (21-32) mmol/L Anion Gap 7.0 (3-11) BUN 8 (7-18) mg/dl Creatinine 0.28 L (0.6-1.2) mg/dl Est Cr Clr Drug Dosing 171.5 ml/min Est GFR ( Amer) > 150.0 ml/min Est GFR (Non-Af Amer) 137.5 ml/min BUN/Creatinine Ratio 30.0 H (10-20) Glucose 98 (70-99) mg/dl Calcium 9.3 (8.5-10.1) mg/dl Phosphorus 4.3 (2.5-4.9) mg/dl Magnesium 1.8 (1.8-2.4) mg/dl (1) Fracture of hip, left, closed Encounter type: initial encounter Qualified Code(s): S72.002A - Fracture of unspecified part of neck of left femur, initial encounter for closed fracture
[2020-12-09] MEDS ORDERED: D5NSS + 20MEQ KCL 20 MEQ/1,000 ML BAG IV SCH (11:00)
--- NOTE | 2020-12-09 11:31 | XRay Report ---
GENEVA CLINICAL HISTORY: coresafe placement COMPARISON STUDY: GENEVA December 02, 2020. FINDINGS: The tip of the feeding tube is within the gastric fundus. Bowel gas pattern is normal. IMPRESSION: Tip of feeding tube within the gastric fundus. ACT 112: Negative or not required by law. Electronically signed by: Mike Gallegos M.D. 12/09/2020 11:30 AM
[2020-12-09] MEDS: cefTRIAXone SODIUM 1,000 MG in DEXTROSE 5% 50 ML IV SCH (12:23)
[2020-12-09] MEDS: ACETAMINOPHEN 325 MG TAB PO PRN (13:08)
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
[2020-12-09] MEDS: TUBE FEEDING WATER FLUSH NG SCH ×3 (13:33→20:08)
[2020-12-09] MEDS: PEPTAMEN INTENSE VHP 1.0 CAL 1,000 ML BAG OG SCH (13:33)
[2020-12-09] MEDS: NSS + 20MEQ KCL 20 MEQ/1,000 ML BAG IV SCH ×2 (13:33→22:20)
[2020-12-09] MEDS: MONTELUKAST SODIUM 10 MG TABLET PO SCH (20:23)
[2020-12-10] MEDS: LORazepam 1 MG/2 ML VIAL IV PRN ×5 (00:56→22:32)
[2020-12-10] MEDS: PEPTAMEN INTENSE VHP 1.0 CAL 1,000 ML BAG OG SCH (01:39)
[2020-12-10] MEDS: TUBE FEEDING WATER FLUSH NG SCH ×6 (01:45→20:23)
[2020-12-10 06:17] LABS: Hematocrit (blood only) 29.1 % (37-47); Hemoglobin 9.4 g/dL (12.0-16.0); Mean Corpuscular Hemoglobin 31.1 pg (25-34); Mean Corpuscular Hgb Conc 32.3 g/dL (32-36); Mean Corpuscular Volume 96.4 fL (80-100); Mean Platelet Volume 9.3 fL (7.4-10.4); Platelet Count 781 K/uL (130-400); RDW Coefficient of Variation 15.1 % (11.5-14.5); RDW Standard Deviation 51.7 fL (36.4-46.3); Red Blood Count 3.02 M/uL (4.2-5.4); White Blood Count 13.28 K/uL (4.8-10.8)
[2020-12-10 06:43] LABS: BUN Creatinine Ratio 13.4 (10-20); Blood Urea Nitrogen 4 mg/dl (7-18); Calcium 9.1 mg/dl (8.5-10.1); Carbon Dioxide 27 mmol/L (21-32); Chloride 104 mmol/L (98-107); Est GFR (African American) > 150.0 ml/min; Est GFR (Non-African American) 130.3 ml/min; Glucose 86 mg/dl (70-99); Sodium 134 mmol/L (136-145)
[2020-12-10 06:53] LABS: Basophils # (auto) 0.06 K/uL (0-0.2); Basophils % (auto) 0.5 %; Eosinophils # (auto) 0.62 K/uL (0-0.5); Eosinophils % (auto) 4.7 %; Immature Granulocytes # (auto) 0.83 K/uL (0.00-0.02); Immature Granulocytes % (auto) 6.3 %; Lymphocytes # (auto) 1.61 K/uL (1.2-3.4); Lymphocytes % (auto) 12.1 %; Monocytes # (auto) 1.94 K/uL (0.11-0.59); Monocytes % (auto) 14.6 %; Neutrophils # (auto) 8.22 K/uL (1.4-6.5); Neutrophils % (auto) 61.8 %; Polychromasia 1+
--- NOTE | 2020-12-10 07:46 | XRay Report ---
GENEVA CLINICAL HISTORY: coresafe placement COMPARISON STUDY: [place]to December 09, 2020 at 11:02 AM. FINDINGS: The tip of the feeding tube projects over the gastric fundus or cardia. Mild left upper dylon g and right lung opacities are noted. IMPRESSION: Tip of feeding tube projects over the gastric fundus or cardia. ACT 112: Negative or not required by law. Electronically signed by: Mike Gallegos M.D. 12/10/2020 7:44 AM
[2020-12-10] MEDS: busPIRone 5 MG TAB PO SCH ×2 (08:02→20:23)
[2020-12-10] MEDS: NICOTINE 14 MG/24 HR PATCH TD SCH (08:02)
[2020-12-10] MEDS: THIAMINE HCL 100 MG in SYRINGE 9 ML IV SCH (08:03)
[2020-12-10] MEDS: CEROVITE ADV FORMULA TAB PO SCH (08:03)
[2020-12-10] MEDS: ASPIRIN 81 MG CHEW NG SCH (08:03)
[2020-12-10] MEDS: FLUTICASONE/VILANTEROL 100/25MCG 14 PUFFS/INHALER INH SCH (08:03)
[2020-12-10] MEDS: FOLIC ACID 1 MG in SYRINGE 9.8 ML IV SCH (08:03)
[2020-12-10] MEDS: HEPARIN SOD 5,000 UNIT/0.5 ML VIAL SQ SCH ×2 (08:03→20:23)
[2020-12-10] MEDS: AZITHROMYCIN 250 MG in DEXTROSE 5% 250 ML IV SCH (09:14)
--- NOTE | 2020-12-10 12:47 | XRay Report ---
XR chest 1V portable CLINICAL HISTORY: NG tube placement COMPARISON STUDY: Chest radiograph December 06, 2020. KUB December 09, 2020 at 9:18 PM. FINDINGS: The tip of the nasogastric tube is below the lower aspect of this image but at least within the distal body of the stomach. Airspace opacities within lungs have improved. Cardiac size is felicita l. Mediastinal contours are normal. There is no pneumothorax or pleural effusion. Old right clavicula r fracture is incidentally noted. IMPRESSION: 1. Tip of nasogastric tube below the lower aspect of this image but at least within the distal body o f the stomach. 2. Interval improvement in airspace opacities within the lungs. ACT 112: Negative or not required by law. Electronically signed by: Mike Gallegos M.D. 12/10/2020 12:46 PM
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
[2020-12-10] MEDS: cefTRIAXone SODIUM 1,000 MG in DEXTROSE 5% 50 ML IV SCH (12:55)
[2020-12-10] MEDS: MONTELUKAST SODIUM 10 MG TABLET PO SCH (20:23)
[2020-12-11] MEDS: TUBE FEEDING WATER FLUSH NG SCH ×6 (01:47→19:33)
[2020-12-11] MEDS: LORazepam 1 MG/2 ML VIAL IV PRN ×4 (02:04→10:05)
[2020-12-11] MEDS: FLUTICASONE/VILANTEROL 100/25MCG 14 PUFFS/INHALER INH SCH (07:28)
[2020-12-11] MEDS: NICOTINE 14 MG/24 HR PATCH TD SCH (07:30)
[2020-12-11] MEDS: HEPARIN SOD 5,000 UNIT/0.5 ML VIAL SQ SCH ×2 (07:30→20:19)
[2020-12-11] MEDS: CEROVITE ADV FORMULA TAB PO SCH (07:30)
[2020-12-11] MEDS: busPIRone 5 MG TAB PO SCH ×2 (07:30→20:19)
[2020-12-11] MEDS: THIAMINE HCL 100 MG in SYRINGE 9 ML IV SCH (07:31)
[2020-12-11] MEDS: FOLIC ACID 1 MG in SYRINGE 9.8 ML IV SCH (07:31)
[2020-12-11] MEDS: ASPIRIN 81 MG CHEW NG SCH (07:43)
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
[2020-12-11] MEDS: cefTRIAXone SODIUM 1,000 MG in DEXTROSE 5% 50 ML IV SCH (12:42)
[2020-12-11] MEDS: PEPTAMEN INTENSE VHP 1.0 CAL 1,000 ML BAG OG SCH (19:33)
[2020-12-11] MEDS: MONTELUKAST SODIUM 10 MG TABLET PO SCH (20:19)
[2020-12-12] MEDS: TUBE FEEDING WATER FLUSH NG SCH ×6 (00:11→20:32)
[2020-12-12] MEDS ORDERED: LORazepam 0.5 MG/1 ML VIAL IV STA (01:37)
[2020-12-12] MEDS: LORazepam 1 MG/2 ML VIAL IV PRN ×2 (03:49→10:09)
[2020-12-12] MEDS: FOLIC ACID 1 MG in SYRINGE 9.8 ML IV SCH (09:12)
[2020-12-12] MEDS: THIAMINE HCL 100 MG in SYRINGE 9 ML IV SCH (09:12)
[2020-12-12] MEDS: busPIRone 5 MG TAB PO SCH ×2 (09:12→22:33)
[2020-12-12] MEDS: CEROVITE ADV FORMULA TAB PO SCH (09:13)
[2020-12-12] MEDS: HEPARIN SOD 5,000 UNIT/0.5 ML VIAL SQ SCH ×2 (09:14→22:33)
[2020-12-12] MEDS: NICOTINE 14 MG/24 HR PATCH TD SCH (09:15)
[2020-12-12] MEDS: ASPIRIN 81 MG CHEW NG SCH ×2 (09:15→11:48)
[2020-12-12] MEDS: FLUTICASONE/VILANTEROL 100/25MCG 14 PUFFS/INHALER INH SCH (09:15)
[2020-12-12] MEDS: cefTRIAXone SODIUM 1,000 MG in DEXTROSE 5% 50 ML IV SCH (13:27)
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
[2020-12-12] MEDS: PEPTAMEN INTENSE VHP 1.0 CAL 1,000 ML BAG OG SCH (22:32)
[2020-12-12] MEDS: MONTELUKAST SODIUM 10 MG TABLET PO SCH (22:33)
[2020-12-13] MEDS: TUBE FEEDING WATER FLUSH NG SCH ×4 (00:33→08:06)
--- NOTE | 2020-12-13 06:41 | XRay Report ---
KUB CLINICAL HISTORY: feeding tube placement COMPARISON STUDY: KUB December 09, 2020. FINDINGS: The tip of the nasogastric tube is within the body of the stomach. The bowel gas pattern is normal. Left femoral internal fixation is partially imaged. No urinary calculi are identified. IMPRESSION: Tip of nasogastric tube within the body of the stomach. ACT 112: Negative or not required by law. Electronically signed by: Mike Gallegos M.D. 12/13/2020 6:40 AM
[2020-12-13] MEDS: busPIRone 5 MG TAB PO SCH ×2 (08:05→19:41)
[2020-12-13] MEDS: HEPARIN SOD 5,000 UNIT/0.5 ML VIAL SQ SCH ×2 (08:05→20:38)
[2020-12-13] MEDS: NICOTINE 14 MG/24 HR PATCH TD SCH ×2 (08:05→08:57)
[2020-12-13] MEDS: CEROVITE ADV FORMULA TAB PO SCH (08:05)
[2020-12-13] MEDS: THIAMINE HCL 100 MG in SYRINGE 9 ML IV SCH (08:05)
[2020-12-13] MEDS: FOLIC ACID 1 MG in SYRINGE 9.8 ML IV SCH (08:05)
[2020-12-13] MEDS: FLUTICASONE/VILANTEROL 100/25MCG 14 PUFFS/INHALER INH SCH (08:06)
--- NOTE | 2020-12-13 08:10 | XRay Report ---
XR chest 1V portable CLINICAL HISTORY: feeding tube placement COMPARISON STUDY: Chest CT December 05, 2020. Chest radiograph December 10, 2020. FINDINGS: Lung volumes are normal. Lungs are clear. There is no pneumothorax or pleural effusion. Car diac size is normal. Mediastinal contours are normal. There is no evidence for pulmonary edema. Tip o f nasogastric tube is within the body of the stomach. Airspace opacities within lungs have improved. IMPRESSION: Tip of nasogastric tube within the body of the stomach. ACT 112: Negative or not required by law. Electronically signed by: Mike Gallegos M.D. 12/13/2020 8:09 AM
[2020-12-13 08:13] LABS: Hematocrit (blood only) 30.6 % (37-47); Hemoglobin 10.2 g/dL (12.0-16.0); Mean Corpuscular Hemoglobin 31.9 pg (25-34); Mean Corpuscular Hgb Conc 33.3 g/dL (32-36); Mean Corpuscular Volume 95.6 fL (80-100); Mean Platelet Volume 9.4 fL (7.4-10.4); Platelet Count 850 K/uL (130-400); RDW Coefficient of Variation 16.2 % (11.5-14.5); RDW Standard Deviation 55.7 fL (36.4-46.3); White Blood Count 16.35 K/uL (4.8-10.8)
[2020-12-13] MEDS: ASPIRIN 81 MG CHEW NG SCH (08:56)
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
[2020-12-13] MEDS: MONTELUKAST SODIUM 10 MG TABLET PO SCH (19:41)
[2020-12-14] MEDS: HEPARIN SOD 5,000 UNIT/0.5 ML VIAL SQ SCH ×2 (08:28→20:50)
[2020-12-14] MEDS: ASPIRIN 81 MG CHEW NG SCH (08:28)
[2020-12-14] MEDS: busPIRone 5 MG TAB PO SCH ×2 (08:28→20:50)
[2020-12-14] MEDS: FLUTICASONE/VILANTEROL 100/25MCG 14 PUFFS/INHALER INH SCH (08:29)
[2020-12-14] MEDS: CEROVITE ADV FORMULA TAB PO SCH (08:29)
[2020-12-14] MEDS: FOLIC ACID 1 MG TAB PO SCH (08:29)
[2020-12-14] MEDS: THIAMINE HCL 100 MG TAB PO SCH (08:29)
[2020-12-14] MEDS: NICOTINE 14 MG/24 HR PATCH TD SCH (08:29)
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
[2020-12-14] MEDS: MONTELUKAST SODIUM 10 MG TABLET PO SCH (20:51)
[2020-12-15] MEDS: HEPARIN SOD 5,000 UNIT/0.5 ML VIAL SQ SCH ×2 (08:06→20:42)
[2020-12-15] MEDS: FLUTICASONE/VILANTEROL 100/25MCG 14 PUFFS/INHALER INH SCH (08:08)
[2020-12-15] MEDS: busPIRone 5 MG TAB PO SCH ×2 (08:08→20:41)
[2020-12-15] MEDS: CEROVITE ADV FORMULA TAB PO SCH (08:08)
[2020-12-15] MEDS: ASPIRIN 81 MG CHEW NG SCH (08:08)
[2020-12-15] MEDS: FOLIC ACID 1 MG TAB PO SCH (08:09)
[2020-12-15] MEDS: THIAMINE HCL 100 MG TAB PO SCH (08:09)
[2020-12-15] MEDS: NICOTINE 14 MG/24 HR PATCH TD SCH (08:11)
[2020-12-15 09:38] LABS: Hematocrit (blood only) 32.2 % (37-47); Hemoglobin 10.5 g/dL (12.0-16.0); Mean Corpuscular Hemoglobin 31.8 pg (25-34); Mean Corpuscular Hgb Conc 32.6 g/dL (32-36); Mean Corpuscular Volume 97.6 fL (80-100); Mean Platelet Volume 9.2 fL (7.4-10.4); Platelet Count 762 K/uL (130-400); RDW Coefficient of Variation 16.4 % (11.5-14.5); RDW Standard Deviation 58.6 fL (36.4-46.3); White Blood Count 12.79 K/uL (4.8-10.8)
[2020-12-15 09:56] LABS: ALC (manual) 1.46 K/uL (1.2-3.4); ANC (manual) 7.96 K/uL (1.4-6.5); Basophils # (manual) 0.12 K/uL (0-0.2); Basophils % (manual) 0.9 %; Eosinophils # (manual) 1.69 K/uL (0-0.5); Eosinophils % (manual) 13.2 %; Lymphocytes # (manual) 1.46 K/uL (1.2-3.4); Lymphocytes % (manual) 11.4 %; Metamyelocytes # (manual) 0.12 K/uL (0-0); Metamyelocytes % (manual) 0.9 %; Myelocytes # (manual) 0.56 K/uL (0-0); Myelocytes % (manual) 4.4 %; Neutrophils # (manual) 7.96 K/uL (1.4-6.5); Neutrophils % (manual) 62.2 %
[2020-12-15 10:14] LABS: BUN Creatinine Ratio 15.1 (10-20); Calcium 9.8 mg/dl (8.5-10.1); Creatinine Clr Calc Pharmacy 93.5 ml/min; Est GFR (African American) 131.7 ml/min; Est GFR (Non-African American) 113.7 ml/min; Magnesium 1.8 mg/dl (1.8-2.4); Phosphorus 4.1 mg/dl (2.5-4.9); Potassium 3.5 mmol/L (3.5-5.1)
[2020-12-15] MEDS: MONTELUKAST SODIUM 10 MG TABLET PO SCH (20:41)
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
[2020-12-16] MEDS: FLUTICASONE/VILANTEROL 100/25MCG 14 PUFFS/INHALER INH SCH (08:21)
[2020-12-16] MEDS: busPIRone 5 MG TAB PO SCH (08:21)
[2020-12-16] MEDS: ACETAMINOPHEN 325 MG TAB PO PRN (08:22)
[2020-12-16] MEDS: THIAMINE HCL 100 MG TAB PO SCH (08:23)
[2020-12-16] MEDS: FOLIC ACID 1 MG TAB PO SCH (08:23)
[2020-12-16] MEDS: ASPIRIN 81 MG CHEW NG SCH (08:23)
[2020-12-16] MEDS: CEROVITE ADV FORMULA TAB PO SCH (08:23)
[2020-12-16] MEDS: NICOTINE 14 MG/24 HR PATCH TD SCH (08:24)
[2020-12-16] MEDS: HEPARIN SOD 5,000 UNIT/0.5 ML VIAL SQ SCH (09:25)
[2020-12-16 09:57] LABS: Hematocrit (blood only) 32.2 % (37-47); Hemoglobin 10.3 g/dL (12.0-16.0); Mean Corpuscular Hemoglobin 31.8 pg (25-34); Mean Corpuscular Volume 99.4 fL (80-100); Mean Platelet Volume 9.2 fL (7.4-10.4); Platelet Count 738 K/uL (130-400); RDW Coefficient of Variation 16.5 % (11.5-14.5); RDW Standard Deviation 60.3 fL (36.4-46.3); Red Blood Count 3.24 M/uL (4.2-5.4); White Blood Count 9.65 K/uL (4.8-10.8)
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
--- NOTE | 2020-12-28 06:08 | Coding Query ---
Your help is needed for correct coding of this account; please clarify if the patients Post-operative Ileus was: ( ) expected out of the surgery ( x) unexpected complication from the surgery ( )other please specify Thank you PRADEEP Gallegos CCS
== END 2020-12-16 18:50 | DRG 480 ==
LOC: ED 19:39 → SUATTDRO 22:56 → 2S 22:56 → 1E 11-29 15:33 → 2E 12-09 22:55 → 2W 12-11 10:38

== ENCOUNTER 2023-01-15 11:07 | Observation (INO) ==
--- NOTE | 2022-12-28 08:55 | Anesthesiology Consultation ---
Date of Service December 28, 2022 Assessment & Plan (1) Encounter for pre-operative examination: Chart Review Chart Review: Acceptable Risk for Surgery (pending labs DOS ) and Patient NOT seen in Pre Admission Testing - Check CBC with diff and PRP DOS - Check test AM DOS Hx of hyponatremia and alcohol abuse -COVID screening: Per PAT nursing assessment on 12/26/22. No known COVID-19 positive contacts or current COVID-19 related symptoms. Travel screen negative. At surgeon discretion if preop Covid testing being done. ORIF right distal radius fracture 04/03/22 = Done under [facility] with PNB Left Troch Nail 11/28/20= Done under [facility] with Grade 2 view with Palomares #2. ETT #7.0 History Surgery Operation Date: 01/01/23 09:50 Proposed Procedures p Open Left Hip Hardware Removal - Endy Gaurav Jaquez MD Height/Weight Height: 5 ft 1 in Weight: 42.184 kg Allergies Allergy/AdvReac Type Severity Reaction Status Date / Time No Known Allergies Allergy Verified 12/26/22 13:46 Medications Home Medications Medication Instructions Recorded Confirmed Last Taken budesonide-formoterol HFA 80 1 puff inhalation UD PRN Shortness 11/27/20 12/26/22 04/01/22 mcg-4.5 mcg/actuation aerosol Of Breath inhaler (Symbicort) buspirone 10 mg tablet 10 mg PO BID 11/27/20 12/26/22 04/01/22 18:00 montelukast 10 mg tablet 10 mg PO HS 11/27/20 12/26/22 04/01/22 08:00 ipratropium 20 mcg-albuterol 100 1 puff inhalation Q6H 04/02/22 12/26/22 04/01/22 mcg/actuation mist for inhalation (Combivent Respimat) pantoprazole 20 mg tablet,delayed 20 mg PO QAM 12/26/22 12/26/22 Unknown release Past Medical History Medical History (Updated 12/28/22 @ 09:12 by Coco Vargas PA-C) Alcohol abuse h/o alcohol withdrawal seizures per [place] hospitalist records; drinks 1 6-pack daily, "has decreased amount drastically" Alcohol withdrawal delirium hx-11/2020 Asthma daily and prn inh Chronic obstructive pulmonary disease daily and prn inh History of anxiety Seizure last one >1 year ago; no medications; last grand mal was 4 years ago; f/u PCP Slow to wake up after anesthesia Past Surgical History Surgical History H/O shoulder surgery History of open reduction and internal fixation (ORIF) procedure left hip 11/28/20 Palomares 2, ETT 7.; rt wrist History of surgery on wrist Right wrist fracture repair 03/2022 Hx of section x2 Hx of tooth extraction all bottom teeth Social History Smoking Status: Current every day smoker tobacco type: cigarettes Smoking cigarettes per day: 20 Do You Dip or Chew Tobacco: No Hx Alcohol Use: Yes Alcohol type: beer alcohol intake frequency: 3 or more drinks per day Alcohol Intake Frequency Comment: 1-6 pack per day Hx Substance Use: No substance use type: does not use Testing Electrocardiogram Date: 04/02/22 Poor data quality NSR at 74bpm Normal EKG per cardio. Chest X-Ray Date: 04/02/22 *1view* No acute cardiopulmonary findings Echocardiogram Date: 12/05/20 EF 55-60% No regional wall motion abnormalities Mild tricuspid regurgitation
[~2023-01-15 11:07] MED LIST changes: +BUPIVACAINE 0.5 % 5 MG/1 ML PF 10ML VIAL ONE; -HYDR-5688 PO; +LACTATED RINGER'S 1,000 ML IV SCH; +LR 15ML/HR IV SCH; +ceFAZolin 2000MG 2,000 MG/15 ML SYR IV SCH
[2023-01-15 11:56] LABS: Basophils # (auto) 0.11 K/uL (0.00-0.20); Basophils % (auto) 1.6 %; Eosinophils # (auto) 0.18 K/uL (0.00-0.50); Eosinophils % (auto) 2.6 %; Hematocrit (blood only) 41.5 % (37.0-47.0); Hemoglobin 14.7 g/dl (12.0-16.0); Immature Granulocytes # (auto) 0.06 K/uL (0.01-0.20); Immature Granulocytes % (auto) 0.9 %; Lymphocytes # (auto) 1.69 K/uL (1.20-3.40); Lymphocytes % (auto) 24.7 %; Mean Corpuscular Hemoglobin 34.3 pg (25.0-34.0); Mean Corpuscular Hgb Conc 35.4 g/dL (32.0-36.0); Mean Platelet Volume 9.6 fL (9.4-12.4); Monocytes # (auto) 0.99 K/uL (0.11-0.59); Monocytes % (auto) 14.5 %; Neutrophils % (auto) 55.7 %; Platelet Count 160 K/uL (130-400); RDW Coefficient of Variation 12.7 % (11.5-14.5); Red Blood Count 4.28 M/uL (4.20-5.40); White Blood Count 6.83 K/ul (4.8-10.8)
[2023-01-15 12:14] LABS: Creatinine Clr Calc Pharmacy 88.3 ml/min; Est GFR (African American) 129.9 ml/min; Est GFR (Non-African American) 112.1 ml/min; Potassium 4.3 mmol/L (3.5-5.1)
[2023-01-15] MEDS ORDERED: PROMETHAZINE HCL 6.25 MG in SODIUM CHLORIDE 0.9% 50 ML IV PRN (12:55)
[2023-01-15] MEDS ORDERED: HYDROmorphone INJ 1 MG/ML SYRINGE IV PRN (12:55)
[2023-01-15] MEDS ORDERED: ATROPINE SULFATE 0.1 MG/ML 10ML SYR IV PRN (12:55)
[2023-01-15] MEDS ORDERED: ONDANSETRON INJ 2 MG/ML 2 ML VIAL IV PRN (12:55)
[2023-01-15] MEDS ORDERED: KETOROLAC 30 MG/ML VIAL IV PRN (12:55)
[2023-01-15] MEDS ORDERED: MIDAZOLAM HCL 1 MG/ML 2ML VIAL ONE (13:25)
[2023-01-15] MEDS ORDERED: DEXAMETHASONE SOD INJ 4 MG/ML VIAL ONE (13:25)
[2023-01-15] MEDS ORDERED: ROCURONIUM BROMIDE 10 MG/ML 5 ML VIAL IV ONE (13:25)
[2023-01-15] MEDS ORDERED: fentaNYL citrate PF 100 MCG/2 ML VIAL ONE (13:25)
[2023-01-15] MEDS ORDERED: PROPOFOL IV EMULSION 10 MG/ML 20 ML VIAL IV ONE (13:25)
[2023-01-15] MEDS ORDERED: ONDANSETRON INJ 2 MG/ML 2 ML VIAL ONE (13:25)
--- NOTE | 2023-01-15 13:29 | History & Physical Bridge Note ---
Date of Service January 15, 2023 History & Physical Bridge Note I have examined the patient, reviewed the History & Physical and in the interval since the performance of the History & Physical I have noted the following changes of clinical significance: no changes noted
[2023-01-15] MEDS ORDERED: LIDOCAINE 1%/EPINEPHRINE 1:100,000 20 ML VIAL ONE (14:12)
[2023-01-15] MEDS ORDERED: BUPIVACAINE 0.5 % 5 MG/1 ML MPF 30ML VIAL ONE (14:12)
[2023-01-15] MEDS ORDERED: ePHEDrine sulfate 50 MG/ML AMP ONE (15:06)
[2023-01-15] MEDS ORDERED: GLYCOPYRROLATE 0.2 MG/ML VIAL ONE (15:53)
[2023-01-15] MEDS ORDERED: NEOSTIGMINE METHYLSULFATE 1 MG/ML 10ML VIAL ONE (15:53)
--- NOTE | 2023-01-15 16:07 | Post Operative Brief Note ---
Immediate Post Op Note v1 Date of Surgery January 15, 2023 Pre & Post Diagnosis Operation Date: 01/15/23 13:00 Pre-op Dx: Left hip retained painful Orthopedic hardware Post-op Dx: Left hip retained painful Orthopedic hardware I identified the patient and participated in the time-out.: Yes Procedure Operation Date: 01/15/23 13:00 Removal of left hip hardware, deep to bone Surgeon Endy Jaquez MD Radiology Interventional Physician A MD Rosa & M BISHOP Rico Estimated Blood Loss 75 Findings Consistent with Post-Op Diagnosis Fluids 800 cc Anesthesia Type General Complications none
--- NOTE | 2023-01-15 16:09 | Operative Report ---
Post Operative Report Pre & Post Diagnosis Operation Date: 01/15/23 13:00 Pre-op Dx: Left hip retained painful Orthopedic hardware Post-op Dx: Left hip retained painful Orthopedic hardware I identified the patient and participated in the time-out.: Yes Procedure Operation Date: 01/15/23 13:00 Removal of orthopedic hardware, deep to bone Surgeon Endy Jaquez MD Newspaper Manager Gaurav Lee MD & M BISHOP Rico Estimated Blood Loss 75 Findings See Below All hardware removed without incident. left hip fracture healed. Fluids 800 cc Specimens n/a Anesthesia Type General Complications none Indications The patient is a 52 year old female who underwent ORIF left hip fracture 2 years ago and continues to have pain due to the hardware. The patients treatment options of conservative versus surgical intervention were discussed. Since the patient the patient has failed conservative treatment, I recommended surgery to remove the hardware. The patient understands the risks of surgery, which include but are not limited to: bleeding, infection, re-operation, damage to nerves and arteries, continued pain, refracture, DVT, and . The patient understands all of these instructions and explanations, all of their questions have been satisfactorily addressed. The patient has elected to proceed with surgery and the informed consent was signed. Description of Procedure The patient was taken to the Operating Room and placed in the supine position on the fracture table after spinal anesthesia was administered. A multidisciplinary time-out was performed identifying my initials on the left lower limb as the correct and operative limb. Prior to the incision being made, 2 grams of intravenous Ancef were given. Fluoroscopy was brought in to ensure adequate x-rays images could be obtained. Once this was confirmed with Fluro, the left lower extremity was prepped in the standard fashion.The trochanter was marked as were the previous incisions. The incisions were injected with a 50:50 mixture of 1% Lidocaine plain and 0.5% Bupivacaine with epinephrine for a total of 10cc. The planned incision proximal to the greater trochanter was made and carried down through the Tensor Fascia Cary to expose the tip of the greater trochanter and the tip of the IM nail. Using Bovie, rongeur, and curets, the tip of the nail was adequately exposed. The inner locking screw was removed in the standard fashion. Then the nail extractor was threaded into the nail. The Helical blade was then exposed using the second incision, carrying it down through the fascia to bone. The Helical extractor was threaded into the Helical blade and easily extracted. The distal locking screw was exposed by lengthening the distal incision by approximately 1 cm. The IT band was split in line with its fibers. The head of the screw was exposed and removed in the standard fashion with the appropriate screw auto parts delivery driver. Lastly the IM nail was removed with the extractor in the standard fashion. Final x-rays were obtained showing all the hardware removed without incident and the left hip fracture healed. The wounds were copiously irrigated. The Tensor Fascia Cary and IT band were closed with 0 Vicryl. The subcutaneous tissue was closed with 3-0 Vicryl. The skin was closed with racheal. The incisions were covered with Xeroform, 4x4s, ABD, and foam tape. The patient was transfer to her hospital bed and taken to the PACU in stable condition. The sponge and needle counts were correct. Post-op Instructions: The patient was admitted for observation. The patient will be WBAT with a walker. The patient will be seen by PT/OT. Labs will be checked in the am. DVT prophylaxis will be with TEDs, mechanical devices until 24hrs as the patient had a spinal and then aspirin will be started. I attest to the content of the Intraoperative Record and any orders documented therein. Any exceptions are noted below.
--- NOTE | 2023-01-15 17:27 | Fluoroscopy Report ---
INTRAOPERATIVE RADIOGRAPHS CLINICAL HISTORY: Hardware removal. Fluoro time: 22 seconds Ka,r: 1.95 mGy FINDINGS: 6 spot fluoroscopic views of the left femur are correlated with radiographs dated 11/22/2022. Intertrochanteric and medullary nails have been removed. A screw track is present in the proximal fe moral shaft. No residual hardware is seen. There is chronic posttraumatic deformity of the left proxi mal femur. IMPRESSION: Intraoperative images from hardware removal from the left proximal femur. Electronically signed by: Aureliano Bull M.D. 01/15/2023 5:25 PM
[2023-01-15] MEDS ORDERED: SODIUM CHLORIDE 0.9% 1000ML 1,000 ML IV SCH (18:02)
[2023-01-15] MEDS ORDERED: IPRATROPIUM BROMIDE/ALBUTEROL respimat INH INH SCH (18:02)
[2023-01-15] MEDS ORDERED: FLUTICASONE/VILANTEROL 100/25MCG 14 PUFFS/INHALER INH PRN (18:42)
[2023-01-15] MEDS ORDERED: MoRPHine SULFATE 2 MG/ML CARP IV PRN (19:21)
[2023-01-15] MEDS ORDERED: ACETAMINOPHEN 500 MG TAB PO PRN (19:21)
--- NOTE | 2023-01-15 19:25 | Anesthesiology Progress Note ---
Date of Service January 15, 2023 Anesthesia Post Procedure Vital Signs Vital Signs: Temp Pulse Pulse Resp BP Pulse Ox O2 Del Method 01/15/23 19:06 36.5 C 71 16 122/73 98 Room Air 01/15/23 18:29 88 16 122/73 100 Room Air 01/15/23 18:24 Room Air 01/15/23 18:00 36.7 C 76 17 110/72 96 Room Air 01/15/23 17:15 36.5 C 67 15 100/63 100 Room Air 01/15/23 17:05 36.5 C 67 13 98/64 L 100 Room Air 01/15/23 17:25 36.5 C 65 13 107/64 100 Room Air 01/15/23 16:55 36.5 C 73 14 96/55 L 100 Room Air 01/15/23 16:45 80 17 101/64 100 Oxymask 01/15/23 16:35 92 H 18 108/74 100 Oxymask 01/15/23 16:27 36.8 C 99 H 16 126/79 100 Oxymask 01/15/23 11:42 37.2 C 85 20 128/85 96 Room Air O2 Flow Rate 01/15/23 19:06 01/15/23 18:29 01/15/23 18:24 01/15/23 18:00 01/15/23 17:15 01/15/23 17:05 01/15/23 17:25 01/15/23 16:55 1 01/15/23 16:45 1 01/15/23 16:35 3 01/15/23 16:27 5 01/15/23 11:42 Transfer of Care Handoff Completed per policy Notes Mental Status: alert / awake / arousable Patient Amnestic to Procedure: Yes Nausea / Vomiting: adequately controlled Pain: adequately controlled Airway Patency, RR, SpO2: stable & adequate BP & HR: stable & adequate Hydration State: stable & adequate Anesthetic Complications: no major complications apparent
[2023-01-15] MEDS: oxyCODONE HCL IR 5 MG TAB (IMMEDIATE RELEASE) PO PRN (19:31)
--- NOTE | 2023-01-15 20:16 | History & Physical Report ---
Date of Service January 15, 2023 Assessment & Plan Admission and Anticipated Discharge Date Admission Date: January 15, 2023 History of Present Illness Primary Care Provider: Derik Bravo MD Allergies Allergy/AdvReac Type Severity Reaction Status Date / Time No Known Allergies Allergy Verified 01/15/23 11:48 Home Medications Medication Instructions Recorded Confirmed Type budesonide-formoterol HFA 80 1 puff inhalation UD PRN Shortness 11/27/20 01/15/23 History mcg-4.5 mcg/actuation aerosol Of Breath inhaler (Symbicort) buspirone 10 mg tablet 10 mg PO BID 11/27/20 01/15/23 History montelukast 10 mg tablet 10 mg PO HS 11/27/20 01/15/23 History ipratropium 20 mcg-albuterol 100 1 puff inhalation Q6H 04/02/22 01/15/23 History mcg/actuation mist for inhalation (Combivent Respimat) pantoprazole 20 mg tablet,delayed 20 mg PO QAM 12/26/22 01/15/23 History release Past Med/Surg History Medical History (Updated 01/15/23 @ 20:28 by Flakito Mahoney MD) Alcohol abuse h/o alcohol withdrawal seizures per [place] hospitalist records; drinks 1 6-pack daily, "has decreased amount drastically" Alcohol withdrawal delirium hx-11/2020 Asthma daily and prn inh Chronic obstructive pulmonary disease daily and prn inh History of anxiety Seizure last one >1 year ago; no medications; last grand mal was 4 years ago; f/u PCP Slow to wake up after anesthesia Surgical History H/O shoulder surgery History of open reduction and internal fixation (ORIF) procedure left hip 11/28/20 Palomares 2, ETT 7.; rt wrist History of surgery on wrist Right wrist fracture repair 03/2022 Hx of section x2 Hx of tooth extraction all bottom teeth Social History Smoking Status: Current every day smoker Tobacco Type: Cigarettes Cigarettes Per Day: 20; Second Hand Exposure: Yes; Do You Dip or Chew Tobacco: No; Tobacco Cessation Education Requested by Patient: No Hx Alcohol Use: Yes Alcohol type: beer Hx Substance Use: No Preferred Language: Belarusian Communication Ability: Effective 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 Beliefs That Will Affect Care: None Current Living Situation: Alone Current Living Situation Comment: lives in a tent>does have somewhere to go after surgery Other Information That Helps Us Care for You: No Feels Safe at Home: Yes Safety Concerns: Feels Safe At This Time Assistive Devices: Denture - Upper and Glasses Assistive Devices Comment: reading glasses Results & Data Results & Data Vital Signs (Past 12 Hours) Vital Signs Temp Pulse Pulse Resp BP Pulse Ox O2 Del Method 01/15/23 19:06 36.5 C 71 16 122/73 98 Room Air 01/15/23 18:29 88 16 122/73 100 Room Air 01/15/23 18:24 Room Air 01/15/23 18:00 36.7 C 76 17 110/72 96 Room Air 01/15/23 17:15 36.5 C 67 15 100/63 100 Room Air 01/15/23 17:05 36.5 C 67 13 98/64 L 100 Room Air 01/15/23 17:25 36.5 C 65 13 107/64 100 Room Air 01/15/23 16:55 36.5 C 73 14 96/55 L 100 Room Air 01/15/23 16:45 80 17 101/64 100 Oxymask 01/15/23 16:35 92 H 18 108/74 100 Oxymask 01/15/23 16:27 36.8 C 99 H 16 126/79 100 Oxymask 01/15/23 11:42 37.2 C 85 20 128/85 96 Room Air O2 Flow Rate 01/15/23 19:06 01/15/23 18:29 01/15/23 18:24 01/15/23 18:00 01/15/23 17:15 01/15/23 17:05 01/15/23 17:25 01/15/23 16:55 1 01/15/23 16:45 1 01/15/23 16:35 3 01/15/23 16:27 5 01/15/23 11:42 Code Status & VTE Plan VTE Prophylaxis Plan VTE Prophylaxis will be ordered: Yes
[2023-01-15] MEDS ORDERED: LORazepam 2 MG/1 ML VIAL IV PRN (20:29)
[2023-01-15] MEDS: ASPIRIN 81 MG ECTAB PO SCH (20:29)
[2023-01-15] MEDS: busPIRone 5 MG TAB PO SCH (20:29)
[2023-01-15] MEDS ORDERED: GABAPENTIN 400 MG CAP PO ONE (20:29)
[2023-01-15] MEDS ORDERED: GABAPENTIN 800MG ALCOHOL WITHDRAWAL LOAD PO STA (20:29)
--- NOTE | 2023-01-15 20:30 | Consultation ---
Date of Consultation January 15, 2023 Assessment & Plan (1) Hip pain, left: (2) History of participation in smoking cessation counseling: (3) Depression: (4) Chronic obstructive pulmonary disease: (5) Alcohol abuse: Plan Patient is here post hardware removal of left hip Alcohol withdrawal High risk Started on gabapentin and ativan withdrawal scale/ Thiamine and folic acid Depression : continue buspirone h/o Asthma : continue singulair and budesonide hg/o gerd : continue prilosec Thank you for this consult Will continue to follow along side you. History of Present Illness Reason for Consultation: medical management for orthopedic hardware removal on left hip Attending Physician: Endy Jaquez MD History of Present Illness 52 yr old female with h/o copd, chronic rhinitis, smoker and history of alcohol abuse for medical management. Patient admits to using a 6 pack a day daily for the past 20 years plus. admits to use smoke a pack per day for 20 yrs . Patient uses singulair and budesonide for asthma Allergies Allergy/AdvReac Type Severity Reaction Status Date / Time No Known Allergies Allergy Verified 01/15/23 11:48 Home Medications Medication Instructions Recorded Confirmed Type budesonide-formoterol HFA 80 1 puff inhalation UD PRN Shortness 11/27/20 01/15/23 History mcg-4.5 mcg/actuation aerosol Of Breath inhaler (Symbicort) buspirone 10 mg tablet 10 mg PO BID 11/27/20 01/15/23 History montelukast 10 mg tablet 10 mg PO HS 11/27/20 01/15/23 History ipratropium 20 mcg-albuterol 100 1 puff inhalation Q6H 04/02/22 01/15/23 History mcg/actuation mist for inhalation (Combivent Respimat) pantoprazole 20 mg tablet,delayed 20 mg PO QAM 12/26/22 01/15/23 History release Patient History Medical History (Updated 01/15/23 @ 20:28 by Flakito Mahoney MD) Alcohol abuse h/o alcohol withdrawal seizures per [place] hospitalist records; drinks 1 6-pack daily, "has decreased amount drastically" Alcohol withdrawal delirium hx-11/2020 Asthma daily and prn inh Chronic obstructive pulmonary disease daily and prn inh History of anxiety Seizure last one >1 year ago; no medications; last grand mal was 4 years ago; f/u PCP Slow to wake up after anesthesia Surgical History H/O shoulder surgery History of open reduction and internal fixation (ORIF) procedure left hip 11/28/20 Palomares 2, ETT 7.; rt wrist History of surgery on wrist Right wrist fracture repair 03/2022 Hx of section x2 Hx of tooth extraction all bottom teeth Social History Smoking Status: Current every day smoker Tobacco Type: Cigarettes Cigarettes Per Day: 20; Second Hand Exposure: Yes; Do You Dip or Chew Tobacco: No; Tobacco Cessation Education Requested by Patient: No Hx Alcohol Use: Yes Alcohol type: beer Hx Substance Use: No Preferred Language: Arabic Communication Ability: Effective Cell Tuber Hand Required: No Beliefs That Will Affect Care: None Current Living Situation: Alone Current Living Situation Comment: lives in a tent>does have somewhere to go after surgery Other Information That Helps Us Care for You: No Feels Safe at Home: Yes Safety Concerns: Feels Safe At This Time Assistive Devices: Denture - Upper and Glasses Assistive Devices Comment: reading glasses Review of Systems Review of Systems: as noted in h/p rest reviewed as negative Physical Exam Constitutional: HEENT: NO jvd Cvs: s1 s2 + no murmurs Abdomen : non tender Musculoskeletal: left hip tenderness 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 ext: no edema Neurologic: Patient is jittery at this time with concerns of alcohol withdrawal Psychiatric: normal affect Results & Data Vital Signs (Past 12 Hours) Vital Signs Temp Pulse Pulse Resp BP Pulse Ox O2 Del Method 01/15/23 19:06 36.5 C 71 16 122/73 98 Room Air 01/15/23 18:29 88 16 122/73 100 Room Air 01/15/23 18:24 Room Air 01/15/23 18:00 36.7 C 76 17 110/72 96 Room Air 01/15/23 17:15 36.5 C 67 15 100/63 100 Room Air 01/15/23 17:05 36.5 C 67 13 98/64 L 100 Room Air 01/15/23 17:25 36.5 C 65 13 107/64 100 Room Air 01/15/23 16:55 36.5 C 73 14 96/55 L 100 Room Air 01/15/23 16:45 80 17 101/64 100 Oxymask 01/15/23 16:35 92 H 18 108/74 100 Oxymask 01/15/23 16:27 36.8 C 99 H 16 126/79 100 Oxymask 01/15/23 11:42 37.2 C 85 20 128/85 96 Room Air O2 Flow Rate 01/15/23 19:06 01/15/23 18:29 01/15/23 18:24 01/15/23 18:00 01/15/23 17:15 01/15/23 17:05 01/15/23 17:25 01/15/23 16:55 1 01/15/23 16:45 1 01/15/23 16:35 3 01/15/23 16:27 5 01/15/23 11:42 Laboratory Results labs reviewed
[2023-01-15] MEDS ORDERED: MONTELUKAST SODIUM 10 MG TABLET PO SCH (21:00)
[2023-01-15] MEDS: Albuterol HFA 8 GM Inhaler (Combivent Respimat P&T Subs) INH SCH (21:41)
[2023-01-15] MEDS: Ipratropium HFA Inhaler (Combivent Respimat P&T Subs) INH SCH (21:42)
[2023-01-15] MEDS: ceFAZolin 2000MG 2,000 MG/15 ML SYR IV SCH (22:33)
[2023-01-16] MEDS ORDERED: COUGH DROP (SUGAR FREE) LOZ 24 LOZ/1 BOX BUCCAL ONE (03:03)
[2023-01-16] MEDS: oxyCODONE HCL IR 5 MG TAB (IMMEDIATE RELEASE) PO PRN (04:11)
[2023-01-16] MEDS: GABAPENTIN 400 MG CAP PO SCH ×2 (05:38→11:12)
[2023-01-16] MEDS: ceFAZolin 2000MG 2,000 MG/15 ML SYR IV SCH (05:38)
--- NOTE | 2023-01-16 07:11 | Orthopedic Progress Note ---
Date of Service January 16, 2023 Assessment & Plan (1) Hip pain, left: Plan: POD #1 s/p removal hardware left hip, doing as well as expected. Resume diet. WBAT with walker 6 weeks. OOB to chair. Continue pain control. DVT prophylaxis: TEDs 3 weeks, foot pumps while in hospital, ASA 81 mg BID for 6 weeks. PT/OT. Appreciate medicine input D/C planning. Present on Admission?: Yes Admission and Anticipated Discharge Date Admission Date: January 15, 2023 Subjective C/O L hip pain, but improving Physical Exam Physical Exam: LLE: BCR < 2 sec. Sensation to light touch intact distally. Wiggling ankle and toes. Calf soft and non-tender. Dressing is clean, dry, intact. No pain with log roll hip. Results & Data Vital Signs (Past 12 Hours) Vital Signs Temp Pulse Resp BP Pulse Ox O2 Del Method 01/16/23 03:09 36.8 C 71 16 104/65 99 Room Air 01/15/23 22:48 36.6 C 68 16 101/65 98 Room Air 01/15/23 21:45 73 18 95 Room Air 01/15/23 21:20 Room Air 01/15/23 20:00 36.5 C 83 16 111/69 96 Room Air Laboratory Results Laboratory Results WBC 6.83 K/ul (4.8-10.8) 01/15/23 11:33 RBC 4.28 M/uL (4.20-5.40) 01/15/23 11:33 Hgb 14.7 g/dl (12.0-16.0) 01/15/23 11:33 Hct 41.5 % (37.0-47.0) 01/15/23 11:33 MCV 97.0 fL (80.0-100.0) 01/15/23 11:33 MCH 34.3 pg (25.0-34.0) H 01/15/23 11:33 MCHC 35.4 g/dL (32.0-36.0) 01/15/23 11:33 RDW Std Deviation 45.0 fL (36.4-46.3) 01/15/23 11:33 RDW Coeff of Eloy 12.7 % (11.5-14.5) 01/15/23 11:33 Plt Count 160 K/uL (130-400) 01/15/23 11:33 MPV 9.6 fL (9.4-12.4) 01/15/23 11:33 Immature Gran % (Auto) 0.9 % 01/15/23 11:33 Neut % (Auto) 55.7 % 01/15/23 11:33 Lymph % (Auto) 24.7 % 01/15/23 11:33 Kemper % (Auto) 14.5 % 01/15/23 11:33 Eos % (Auto) 2.6 % 01/15/23 11:33 Baso % (Auto) 1.6 % 01/15/23 11:33 Neut # (Auto) 3.80 K/uL (1.40-6.50) 01/15/23 11:33 Lymph # (Auto) 1.69 K/uL (1.20-3.40) 01/15/23 11:33 Kemper # (Auto) 0.99 K/uL (0.11-0.59) H 01/15/23 11:33 Eos # (Auto) 0.18 K/uL (0.00-0.50) 01/15/23 11:33 Baso # (Auto) 0.11 K/uL (0.00-0.20) 01/15/23 11:33 Immature Gran # (Auto) 0.06 K/uL (0.01-0.20) 01/15/23 11:33 Sodium 141 mmol/L (136-145) 01/15/23 11:33 Potassium 4.3 mmol/L (3.5-5.1) 01/15/23 11:33 Chloride 105 mmol/L (98-107) 01/15/23 11:33 Carbon Dioxide 29 mmol/L (21-32) 01/15/23 11:33 Anion Gap 7 (3-11) 01/15/23 11:33 BUN 4 mg/dl (6-23) L 01/15/23 11:33 Creatinine 0.50 mg/dl (0.6-1.2) L 01/15/23 11:33 Est Cr Clr Drug Dosing 88.3 ml/min 01/15/23 11:33 Est GFR ( Amer) 129.9 ml/min 01/15/23 11:33 Est GFR (Non-Af Amer) 112.1 ml/min 01/15/23 11:33 BUN/Creatinine Ratio 8.0 (10-20) L 01/15/23 11:33 Glucose 98 mg/dl (70-99(Fasting)) 01/15/23 11:33 Calcium 10.0 mg/dl (8.6-10.3) 01/15/23 11:33 POC Ur Test NEG (NEG) 01/15/23 11:35 Impressions Hip X-Ray 01/15/23 14:15 INTRAOPERATIVE RADIOGRAPHS CLINICAL HISTORY: Hardware removal. Fluoro time: 22 seconds Ka,r: 1.95 mGy FINDINGS: 6 spot fluoroscopic views of the left femur are correlated with radiographs dated 11/22/2022. Intertrochanteric and medullary nails have been removed. A screw track is present in the proximal femoral shaft. No residual hardware is seen. 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 IMPRESSION: Intraoperative images from hardware removal from the left proximal femur. Electronically signed by: Aureliano Bull M.D. 01/15/2023 5:25 PM
[2023-01-16] MEDS: Albuterol HFA 8 GM Inhaler (Combivent Respimat P&T Subs) INH SCH ×2 (07:39→11:26)
[2023-01-16] MEDS: Ipratropium HFA Inhaler (Combivent Respimat P&T Subs) INH SCH ×2 (07:40→11:26)
[2023-01-16] MEDS: ASPIRIN 81 MG ECTAB PO SCH (08:34)
[2023-01-16] MEDS: busPIRone 5 MG TAB PO SCH (08:35)
[2023-01-16] MEDS ORDERED: PANTOprazole 40 MG TAB PO SCH (09:00)
[2023-01-16] MEDS ORDERED: FOLIC ACID 1 MG TAB PO SCH (09:00)
[2023-01-16] MEDS ORDERED: THIAMINE HCL 100 MG TAB PO SCH (09:00)
--- NOTE | 2023-01-16 09:50 | Orthopedic Progress Note ---
Date of Service January 16, 2023 Assessment & Plan (1) Hip pain, left: Plan: POD #1 s/p removal hardware left hip, doing as well as expected. She does not appear to be in any distress or have tremors at this time. WBAT with walker 6 weeks. Prescription was given to nurse for wheeled walker. Pain medication was prescribed, oxycodone for short term use. Advised on dosage, s/e and risks. PDMP was queried. DVT prophylaxis: TEDs 3 weeks, foot pumps while in hospital, ASA 81 mg BID for 6 weeks. Appreciate medicine input prior to d/c home. Medicine cleared patient for discharge and recommended no further medication needed at this time. She has a f/u appointment on Saturday, 01/18 in the office at 11 for dressing change. Pt is aware of this. She was advised if any changes or concerns to contact the office. Admission and Anticipated Discharge Date Admission Date: January 15, 2023 Subjective Patient is POD #1 s/p hardware removal of left hip. She was seen bedside this am. She is alert and oriented pleasant and conversive sitting upright in bed. She states she is feeling good. She states she got dressed with PT and was able to walk and do stairs without any increase in pain. She denies any numbness or tingling in her foot/leg. she states she has mild pain in the left hip and rates 1-2/10. She states she does not feel like she is anxious or having any tremors from withdrawal from alcohol. She feels she is able to go home to a friends home. She is requesting a walker. She denies any fever, chills, nausea, vomiting, chest pain, shortness of breath or calf pain Review of Systems Review of Systems: Please refer to HPI Physical Exam Physical Exam: General: Alert and oriented x3 pleasant answering questions appropriately no distress or tremors Integumentary/Musculoskeletal: Dressing is intact. Negative for any soiling. She is able to tolerate log roll and gentle Range of motion of the left leg. She is able to do a straight leg raise without assistance. She is able to actively dorsiflex and plantarflex ankle on left. Calf is soft and nontender. DP 1+ Results & Data Vital Signs (Past 12 Hours) Vital Signs Temp Pulse Pulse Resp BP Pulse Ox O2 Del Method 01/16/23 08:32 36.9 C 01/16/23 08:30 75 18 97/60 L 98 Room Air 01/16/23 07:15 Room Air 01/16/23 07:40 70 16 98 Room Air 01/16/23 07:22 36.8 C 63 16 103/65 99 Room Air 01/16/23 03:09 36.8 C 71 16 104/65 99 Room Air 01/15/23 22:48 36.6 C 68 16 101/65 98 Room Air 01/15/23 21:45 73 18 95 Room Air Laboratory Results 01/15/23 01/15/23 01/15/23 Range/Units 11:35 11:33 11:33 WBC 6.83 (4.8-10.8) K/ul RBC 4.28 (4.20-5.40) M/uL Hgb 14.7 (12.0-16.0) g/dl Hct 41.5 (37.0-47.0) % MCV 97.0 (80.0-100.0) fL MCH 34.3 H (25.0-34.0) pg MCHC 35.4 (32.0-36.0) g/dL RDW Std Deviation 45.0 (36.4-46.3) fL RDW Coeff of Eloy 12.7 (11.5-14.5) % Plt Count 160 (130-400) K/uL MPV 9.6 (9.4-12.4) fL Immature Gran % (Auto) 0.9 % Neut % (Auto) 55.7 % Lymph % (Auto) 24.7 % Forest % (Auto) 14.5 % Eos % (Auto) 2.6 % Baso % (Auto) 1.6 % Neut # (Auto) 3.80 (1.40-6.50) K/uL Lymph # (Auto) 1.69 (1.20-3.40) K/uL Forest # (Auto) 0.99 H (0.11-0.59) K/uL Eos # (Auto) 0.18 (0.00-0.50) K/uL Baso # (Auto) 0.11 (0.00-0.20) K/uL Immature Gran # (Auto) 0.06 (0.01-0.20) K/uL Sodium 141 (136-145) mmol/L Potassium 4.3 (3.5-5.1) mmol/L Chloride 105 (98-107) mmol/L Carbon Dioxide 29 (21-32) mmol/L Anion Gap 7 (3-11) BUN 4 L (6-23) mg/dl Creatinine 0.50 L (0.6-1.2) mg/dl Est Cr Clr Drug Dosing 88.3 ml/min Est GFR ( Amer) 129.9 ml/min Est GFR (Non-Af Amer) 112.1 ml/min BUN/Creatinine Ratio 8.0 L (10-20) Glucose 98 (70-99(Fasting)) mg/dl Calcium 10.0 (8.6-10.3) mg/dl POC Ur Test NEG (NEG) Diagnostic Findings Hip X-Ray 01/15/23 14:15 INTRAOPERATIVE RADIOGRAPHS CLINICAL HISTORY: Hardware removal. Fluoro time: 22 seconds Ka,r: 1.95 mGy FINDINGS: 6 spot fluoroscopic views of the left femur are correlated with radiographs dated 11/22/2022. Intertrochanteric and medullary nails have been removed. A screw track is present in the proximal femoral shaft. No residual hardware is seen. 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 IMPRESSION: Intraoperative images from hardware removal from the left proximal femur. Electronically signed by: Aureliano Bull M.D. 01/15/2023 5:25 PM
[2023-01-16 10:50] LABS: Hematocrit (blood only) 27.7 % (37.0-47.0); Hemoglobin 9.6 g/dl (12.0-16.0); Mean Corpuscular Hgb Conc 34.7 g/dL (32.0-36.0); Mean Corpuscular Volume 98.2 fL (80.0-100.0); Mean Platelet Volume 10.7 fL (9.4-12.4); Platelet Count 129 K/uL (130-400); RDW Coefficient of Variation 12.7 % (11.5-14.5); RDW Standard Deviation 45.7 fL (36.4-46.3); Red Blood Count 2.82 M/uL (4.20-5.40); White Blood Count 10.71 K/ul (4.8-10.8)
[2023-01-16 11:02] LABS: BUN Creatinine Ratio 10.7 (10-20); Calcium 9.2 mg/dl (8.6-10.3); Creatinine Clr Calc Pharmacy 78.8 ml/min; Est GFR (African American) 125.1 ml/min; Potassium 3.8 mmol/L (3.5-5.1)
[2023-01-16 11:05] LABS: Basophils # (auto) 0.04 K/uL (0.00-0.20); Basophils % (auto) 0.4 %; Eosinophils # (auto) 0.02 K/uL (0.00-0.50); Eosinophils % (auto) 0.2 %; Immature Granulocytes # (auto) 0.05 K/uL (0.01-0.20); Immature Granulocytes % (auto) 0.5 %; Lymphocytes % (auto) 17.7 %; Monocytes # (auto) 1.33 K/uL (0.11-0.59); Monocytes % (auto) 12.4 %; Neutrophils # (auto) 7.37 K/uL (1.40-6.50); Neutrophils % (auto) 68.8 %
--- NOTE | 2023-01-16 13:34 | Hospitalist Progress Note ---
Date of Service January 16, 2023 Assessment & Plan (1) Hip pain, left: (2) History of participation in smoking cessation counseling: (3) Depression: (4) Chronic obstructive pulmonary disease: (5) Alcohol abuse: Plan Patient admitted for removal of hardware of the left hip. Postoperative period Was unremarkable. Hemoglobin down trended from 14.7-9.6 after the surgery. Likely due to acute blood loss anemia. No signs or symptoms of alcohol withdrawal noted during the hospitalization. Depression : continue buspirone h/o Asthma : continue singulair and budesonide hg/o gerd : continue prilosec Patient to follow-up with primary care doctor and obtain CBC as outpatient. Admission and Anticipated Discharge Date Admission Date: January 15, 2023 Subjective Patient seen and examined at bedside. She is comfortably sitting up on the bed; not in distress. Reports mild left hip pain. Denies any symptoms of alcohol withdrawal. No tremors noted. Review of Systems Review of Systems: All systems reviewed & are unremarkable except as noted in Subjective Physical Exam Physical Exam: Constitutional: Awake, alert orient x3; not in distress. Respiratory: normal respiratory effort, lungs clear to auscultation, no wheeze, rales, rhonchi. Normal insp/exp effort, no accessory muscle use Cardiovascular: RRR, no murmur, no edema Vessels: no JVD or carotid bruit Chest: normal inspection of chest Abdomen: normal bowel sounds, soft, nontender, no hepatosplenomegaly Musculoskeletal: no cyanosis or clubbing, extremities motor strength 5/5 Skin: no rashes, warm and dry normal turgor Neurologic: PERRL, EOMI, accommodation nl, no face palsy, no dysarthria CN's II- XI intact bilaterally and moves all extremities Psychiatric: A+Ox3, euthymic affect Results & Data Results & Data Vital Signs (Past 12 Hours) Vital Signs Temp Pulse Pulse Resp BP Pulse Ox O2 Del Method 01/16/23 11:27 17 96 Room Air 01/16/23 08:32 36.9 C 01/16/23 08:30 75 18 97/60 L 98 Room Air 01/16/23 07:15 Room Air 01/16/23 07:40 70 16 98 Room Air 01/16/23 07:22 36.8 C 63 16 103/65 99 Room Air 01/16/23 03:09 36.8 C 71 16 104/65 99 Room Air Laboratory Results Laboratory Results WBC 10.71 K/ul (4.8-10.8) 01/16/23 09:49 RBC 2.82 M/uL (4.20-5.40) L 01/16/23 09:49 Hgb 9.6 g/dl (12.0-16.0) L D 01/16/23 09:49 Hct 27.7 % (37.0-47.0) L 01/16/23 09:49 MCV 98.2 fL (80.0-100.0) 01/16/23 09:49 MCH 34.0 pg (25.0-34.0) 01/16/23 09:49 MCHC 34.7 g/dL (32.0-36.0) 01/16/23 09:49 RDW Std Deviation 45.7 fL (36.4-46.3) 01/16/23 09:49 RDW Coeff of Eloy 12.7 % (11.5-14.5) 01/16/23 09:49 Plt Count 129 K/uL (130-400) L 01/16/23 09:49 MPV 10.7 fL (9.4-12.4) 01/16/23 09:49 Immature Gran % (Auto) 0.5 % 01/16/23 09:49 Neut % (Auto) 68.8 % 01/16/23 09:49 Lymph % (Auto) 17.7 % 01/16/23 09:49 Gage % (Auto) 12.4 % 01/16/23 09:49 Eos % (Auto) 0.2 % 01/16/23 09:49 Baso % (Auto) 0.4 % 01/16/23 09:49 Neut # (Auto) 7.37 K/uL (1.40-6.50) H 01/16/23 09:49 Lymph # (Auto) 1.90 K/uL (1.20-3.40) 01/16/23 09:49 Gage # (Auto) 1.33 K/uL (0.11-0.59) H 01/16/23 09:49 Eos # (Auto) 0.02 K/uL (0.00-0.50) 01/16/23 09:49 Baso # (Auto) 0.04 K/uL (0.00-0.20) 01/16/23 09:49 Immature Gran # (Auto) 0.05 K/uL (0.01-0.20) 01/16/23 09:49 Sodium 133 mmol/L (136-145) L 01/16/23 09:49 Potassium 3.8 mmol/L (3.5-5.1) 01/16/23 09:49 Chloride 99 mmol/L (98-107) 01/16/23 09:49 Carbon Dioxide 26 mmol/L (21-32) 01/16/23 09:49 Anion Gap 8 (3-11) 01/16/23 09:49 BUN 6 mg/dl (6-23) 01/16/23 09:49 Creatinine 0.56 mg/dl (0.6-1.2) L 01/16/23 09:49 Est Cr Clr Drug Dosing 78.8 ml/min 01/16/23 09:49 Est GFR ( Amer) 125.1 ml/min 01/16/23 09:49 Est GFR (Non-Af Amer) 108.0 ml/min 01/16/23 09:49 BUN/Creatinine Ratio 10.7 (10-20) 01/16/23 09:49 Glucose 101 mg/dl (70-99(Fasting)) H 01/16/23 09:49 Calcium 9.2 mg/dl (8.6-10.3) 01/16/23 09:49 POC Ur Test NEG (NEG) 01/15/23 11:35 Impressions Hip X-Ray 01/15/23 14:15 INTRAOPERATIVE RADIOGRAPHS CLINICAL HISTORY: Hardware removal. Fluoro time: 22 seconds Ka,r: 1.95 mGy FINDINGS: 6 spot fluoroscopic views of the left femur are correlated with radiographs dated 11/22/2022. Intertrochanteric and medullary nails have been removed. A screw track is present in the proximal femoral shaft. No residual hardware is seen. 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 IMPRESSION: Intraoperative images from hardware removal from the left proximal femur. Electronically signed by: Aureliano Bull M.D. 01/15/2023 5:25 PM
--- NOTE | 2023-01-16 16:25 | Discharge Summary ---
Date of Service January 16, 2023 Admission HPI Per Admitting Provider This 52-year-old female was admitted through same-day surgery on 01/15/2023 for removal of her intramedullary nail from the left hip. She has a history of left hip pain that has been ongoing for 2 years. Symptoms started after placement of an IM nail to treat a femoral fracture. She is a thin individual. She has had persisting pain that has caused her to limp. She denies any numbness or tingling. She has tried conservative care measures without improvement. She elected to proceed with surgical invention in hopes of improving her pain and function. Today, she is alert and oriented pleasant and conversive sitting upright in bed. She states she is feeling good. She states she got dressed with PT and was able to walk and do stairs without any increase in pain. She denies any numbness or tingling in her foot/leg. she states she has mild pain in the left hip and rates 1-2/10. She states she does not feel like she is anxious or having any tremors from withdrawal from alcohol. She feels she is able to go home to a friends home. She is requesting a walker. She denies any fever, chills, nausea, vomiting, chest pain, shortness of breath or calf pain Principal Diagnosis Retained hardware left hip Discharge Exam General: Well-developed, middle-aged female, in no acute distress. Alert, oriented, and conversive. No tremors. Skin: Warm and dry with good turgor. Postsurgical dressings are in place. There is no soiling through the dressings. No significant edema or ecchymosis beyond the dressings. Musculoskeletal: The patient has intact motor function of her ankle, knee, and hip. She has no significant pain with logrolling of the hip. She is able to perform straight leg raise. Calf is soft and nontender. Neurologic: Gross sensation is intact across the left leg by soft touch. Peripheral pulses are 1+. Discharge Data Allergies Allergy/AdvReac Type Severity Reaction Status Date / Time No Known Allergies Allergy Verified 01/15/23 11:48 Consultations 01/15/23 19:40 Dr. Flakito Mahoney Procedures Performed Operation Date: 01/15/23 13:00 Actual Procedures Removal of orthopedic hardware, deep to bone(Left) - Endy Jaquez MD Ordered Studies Intraoperative fluoroscopy Hospital Course (1) S/P hardware removal: Plan WBAT with walker 6 weeks. Prescription was given to nurse for wheeled walker. Pain medication was prescribed, oxycodone for short term use. Advised on dosage, s/e and risks. PDMP was queried. DVT prophylaxis: TEDs 3 weeks, foot pumps while in hospital, ASA 81 mg BID for 6 weeks. Medicine cleared patient for discharge and recommended no further medication needed at this time. She has a f/u appointment on Saturday, 01/18 in the office at 11 for dressing change. Pt is aware of this. She was advised if any changes or concerns to contact the office. Discharge to home Total Time Total Time Spent Total Time Spent (In Minutes): 25 Discharge Plan Discharge Items Patient Disposition: Home - Self-Care Reason For Visit: Left Hip Retained Orthropedic Hardware Discharge Diagnosis: same Condition on Discharge: Good Activity: Per Instructions section Bathing: Keep incision dry Non-emergency contact: Surgeon Call non-emergency contact if: you have any medication questions, your temperature is above 101.5, your wound has increased redness, your wound has increased drainage and your wound pain has increased Follow-up/Referrals: Derik Bravo MD [Primary Care Provider] - Stephy Jane PA [Physician Heart Doctor] - 01/18/23 11:00 am Diet: Regular Addtl Attending Provider Instructions: POST OPERATIVE DISCHARGE INSTRUCTIONS Pain Control Please take the follow medications for pain control, as well as icing and elevating your operative extremity. Pain after surgery is to be expected. We may not be able to take away all of your pain, but the goal is to make your pain manageable - Extra strength Tylenol 1,000mg (2 tabs) every 8 hours - Oxycodone 5-10mg (1-2 tabs) every 4-6 hours as needed DVT Prophylaxis With any surgery, you are at increased risk for blood clots. Please take the follow measures to prevent blood clots and read the warning signs to watch for. Please take the follow anticoagulant: [id number] Aspirin 81mg twice a day for 6 weeks. Take with food. If you were given JANICE compression stockings, these are to be worn on both legs for 18-20 hours daily for 3 weeks for any lower extremity surgery. Warning signs for DVT: Calf pain, lower extremity swelling, numbness/tingling, skin discoloration, increased pain, shortness of breath, chest pain. Please contact our office if you experience any of these symptoms or call 911 if you are having trouble breathing. Ice Ice your operative site at least 5 times a day for 15-30 minutes at a time, for the first three days, then as needed. This will help to reduce swelling and pain. Make sure you have a thin cloth between the ice or cooling unit and your skin to prevent mortensen bite. This is especially important if you received a nerve block. Diet/Nausea/Vomiting Start by drinking clear liquids and eating crackers. If you can tolerate this, then you may resume your normal diet. If you feel nauseated or vomit, take Zofran/ondansetron (if prescribed). Please call our office if you have intracta ble nausea or vomiting, or, if after hours, you may go to the Emergency Room for help. Slings, Braces and Splints If you were placed in a sling, brace or splint, it must be worn at all times, including sleep. You may remove your sling or brace for physical therapy, home exercises, and showering. If you were placed in a splint, keep this on and in- tact until your first follow up appointment. You will need to use a shower cover to cover your splint to avoid getting it wet when showering/bathing. The length of time you will be in your splint/brace/sling and range of motion restrictions depends on what surgery you had; these details will be reviewed at your first post-operative appointment. Surgical Dressing Please leave on any dressing until you are seen by either PT or PA for your post-operative appointment, unless you are otherwise instructed. If there are any issues with your dressing please give our office a call. Weight bearing, Range of Motion, Activity You will be weight bearing as tolerated on your operative site. If you had a lower extremity surgery, you may use crutches or walker to assist in ambulation. Range of motion as tolerated If you had an upper-extremity surgery, no lifting with your operative arm. Physical therapy You will begin physical therapy 3-5 days after surgery. The duration of your physical therapy will depend on your surgery, and will be discussed at your post op appointment and with your physical therapist. Please also do any home exercises provided by your Physical Therapist. Wound care and showering We will inspect your wound at your first post-operative visit. It is normal to see some dried blood on the dressing. Do not remove your dressing, paper strips or sutures yourself unless otherwise instructed. Showering is allowed post op day 3. Do not scrub or remove any dressings, unless you are otherwise instructed. You may need a shower cover to avoid getting splint or surgical dressing wet. These can be purchased off of [employer]. The wound should not be submerged underwater (i.e. in a bathtub or pool) until 4 weeks after surgery. To promote wound healing, we recommend taking a multi-vitamin, or taking 500mg Vitamin C supplement twice a day for two weeks and 325mg Iron supplement twice a day for two weeks. This is especially important if you had a total joint replacement. Constipation Constipation is a common side effect of narcotic pain medication, dehydration after surgery and iron supplement (if you were instructed to begin that after surgery). We recommend purchasing an [id number] laxative such as Milk of Magnesia, Colace, Dulcolax, Miralax or Senna from a local pharmacy, and taking it as instructed. Stay hydrated and you may increase your fiber in your diet as well. Call our clinic if any questions. Driving You may not drive while taking narcotic pain medication or while in a cast, splint, sling or brace. You, the patient, need to make the final determination about when you are safe to drive, however, the earliest you may consider driving after surgery is below: Hand/Wrist/Elbow Surgery: 3 days Shoulder Surgery: 2 weeks Hip,/Knee/Ankle Surgery: 4 weeks Fracture repair: 6 weeks Return to Work Your return to work depends on what surgery was done and what type of work you do. Please bring any paperwork your employer needs completed to your first post-operative visit. Also, bring a description of your job duties, as this helps us to understand what risks you may face at work. Travel Avoid long distance travel (greater than 1 hour) in airplanes and cars for the first 6 weeks after surgery. Follow-up Please attend your post operative appointments as scheduled. At these appointments, we may do dressing change and remove any sutures/racheal/Zip-line 10-14 days after your surgery. If you do not know your post operative appointment dates or times please call the office at [phone] When to call the office It is normal to have swelling and bruising in the limb that was operated on. This will improve with time. It is also normal to have fevers for the first 2 days after surgery. Reasons you should call your doctor include: Uncontrolled pain; Nausea, vomiting, or constipation that does not improve with medication; Fevers over 101.5, chills, sweats; Drainage or bleeding from the wound; Foul odor; Spreading areas of redness; calf pain or swelling, shortness of breath, chest pain; Any other concerns You may call the office at [phone]. If it is a medical emergency please call 911. Pending Studies at Discharge: No Stand-Alone Forms: My [facility] Medications and DC Order Prescriptions: New aspirin 81 mg Tablet,Delayed Release (Dr/Ec) 81 mg PO BID 42 Days Qty: 84 0RF oxycodone 5 mg Tablet 5 mg PO Q4H PRN (Reason: pain) 3 Days Qty: 10 0RF Continued buspirone 10 mg tablet 10 mg PO BID montelukast 10 mg tablet 10 mg PO HS budesonide-formoterol [Symbicort] 80-4.5 mcg/actuation HFA aerosol inhaler 1 puff INHALATION UD PRN (Reason: Shortness Of Breath) Combivent Respimat 20-100 mcg/actuation Mist 1 puff INHALATION Q6H pantoprazole 20 mg Tablet,Delayed Release (Dr/Ec) 20 mg PO QAM Discharge Orders: Discharge Order (Routine); Ordered 01/16/23 Ordered By: Stephy Jane Admission Data Admit Date/Time: 01/15/23 17:04 Attending Provider: Endy Jaquez Admit Provider: Endy Jaquez Primary Care Provider: Derik Bravo Other Providers: Jose Holland ; David Cash Other Interventions: Discharge Summary Assessment (RN) Last Done: 01/16/23 10:36 Course Course The patient was admitted through same-day surgery on 01/15/2023. She underwent successful removal of retained orthopedic hardware in her left hip. The patient was transferred to recovery room in satisfactory condition. She recovered well and was admitted to the orthopedic floor. Pain was controlled with both IV and oral narcotics. Due to concerns for alcohol withdrawal, medical consult was obtained for management. She did well overnight. Vital signs remained stable overnight. She was reevaluated on the morning of 01/16/2023. The patient had no complaints and desired discharge to home. Medical team had no further recommendations as she was doing well. They concurred with discharge to home. She was instructed on weightbearing status and prescription for oxycodone was sent to her pharmacy. She will use aspirin twice daily for DVT prophylaxis. Follow-up in the office on January 18 as scheduled for dressing change. Call with any other concerns. Administered Medications Discontinued Medications Acetaminophen (Acetaminophen 500 Mg Tab) 1,000 mg PO Q8H PRN PRN Reason: Pain Stop: 02/14/23 19:20 Last Admin: 01/15/23 19:30 Dose: 1,000 mg Documented By: ALL Albuterol (Albuterol Hfa 8 Gm Inhaler (Combivent Respimat P&T Subs)) 1 puffs INH [facility]IDR [facility]; Protocol Stop: 02/14/23 18:59 Last Admin: 01/16/23 11:26 Dose: 1 puffs Documented By: Admin: 01/16/23 07:39 Dose: 1 puffs Documented By: Admin: 01/15/23 21:41 Dose: 1 puffs Documented By: LYLY Aspirin (Aspirin 81 Mg Ectab) 81 mg PO BID [facility] Stop: 02/14/23 20:59 Last Admin: 01/16/23 08:34 Dose: 81 mg Documented By: Admin: 01/15/23 20:29 Dose: 81 mg Documented By: ALL Bupivacaine HCl (Bupivacaine 0.5 % 5 Mg/1 Ml Mpf 30ml Vial) Confirm Administered Dose 30 ml .ROUTE .STK-MED ONE Stop: 01/15/23 14:13 Last Admin: 01/15/23 15:57 Dose: 12 ml Documented By: DAB Buspirone HCl (Buspirone 5 Mg Tab) 10 mg PO BID [facility] Stop: 02/14/23 20:59 Last Admin: 01/16/23 08:35 Dose: 10 mg Documented By: Admin: 01/15/23 20:29 Dose: 10 mg Documented By: ALL Folic Acid (Folic Acid 1 Mg Tab) 1 mg PO [facility] Stop: 02/15/23 08:59 Last Admin: 01/16/23 08:35 Dose: 1 mg Documented By: KENYA Gabapentin (Gabapentin 400 Mg Cap) 400 mg PO Q6H [facility] Stop: 01/16/23 12:01 Last Admin: 01/16/23 11:12 Dose: 400 mg Documented By: Admin: 01/16/23 05:38 Dose: 400 mg Documented By: KSC Gabapentin (Gabapentin 400 Mg Cap) 800 mg PO NOW ONE Stop: 01/15/23 20:30 Last Admin: 01/15/23 21:14 Dose: 800 mg Documented By: KS Lactated Ringer's (Lr) 1,000 mls @ 15 mls/hr IV .Q24H [facility] Stop: 01/16/23 05:59 Last Infusion: 01/15/23 14:14 Dose: 0 mls/hr Documented By: Admin: 01/15/23 12:24 Dose: 15 mls/hr Documented By: TDM Lactated Ringer's (Lr) 1,000 mls @ 15 mls/hr IV .Q24H [facility] Stop: 01/16/23 05:59 Last Admin: 01/15/23 12:24 Dose: Not Given Documented By: TDM Cefazolin Sodium (Ancef 2000mg) 2,000 mg in 15 mls @ 3.75 mls/min IV PREOP [facility]; Protocol Stop: 01/16/23 05:59 Last Admin: 01/15/23 14:14 Dose: 3.75 mls/min Documented By: [id number] Cefazolin Sodium (Ancef 2000mg) 2,000 mg in 15 mls @ 3.75 mls/min IV Q8H [facility]; Protocol Stop: 01/16/23 06:48 Last Admin: 01/16/23 05:38 Dose: 3.75 mls/min Documented By: Admin: 01/15/23 22:33 Dose: 3.75 mls/min Documented By: [facility] Sodium Chloride (Nss 1000ml) 1,000 mls @ 80 mls/hr IV .[id number] [facility] Stop: 01/16/23 19:01 Last Infusion: 01/16/23 05:48 Dose: 0 mls/hr Documented By: Admin: 01/15/23 18:56 Dose: 80 mls/hr Documented By: KENYA Ipratropium [place] (Ipratropium Hfa Inhaler (Combivent Respimat P&T Subs)) 1 puffs INH [facility]R [facility]; Protocol Stop: 02/14/23 18:59 Last Admin: 01/16/23 11:26 Dose: 1 puffs Documented By: Admin: 01/16/23 07:40 Dose: 1 puffs Documented By: Admin: 01/15/23 21:42 Dose: 1 puffs Documented By: LYLY Lidocaine/Epinephrine (Lidocaine 1%/Epinephrine 1:100,000 20 Ml Vial) Confirm Administered Dose 20 ml .ROUTE .STK-MED ONE Stop: 01/15/23 14:13 Last Admin: 01/15/23 15:57 Dose: 12 ml Documented By: SMITA Menthol (Cough Drop (Sugar Free) Mila 24 Mila/1 Box) Confirm Administered Dose 24 mila BUCCAL .STK-MED ONE Stop: 01/16/23 03:04 Last Admin: 01/16/23 03:03 Dose: 24 mila Documented By: ALL Montelukast Sodium (Montelukast Sodium 10 Mg Tablet) 10 mg PO [facility] Stop: 02/14/23 20:59 Last Admin: 01/15/23 20:29 Dose: 10 mg Documented By: ALL Oxycodone HCl (Oxycodone Hcl Ir 5 Mg Tab (Immediate Release)) 5 mg PO Q4H PRN PRN Reason: Pain Stop: 01/29/23 19:16 Last Admin: 01/16/23 04:11 Dose: 5 mg Documented By: Admin: 01/15/23 19:31 Dose: 5 mg Documented By: ALL Pantoprazole Sodium (Pantoprazole 40 Mg Tab) 40 mg PO [facility] Stop: 02/15/23 08:59 Last Admin: 01/16/23 08:36 Dose: 40 mg Documented By: KENYA Thiamine HCl (Thiamine Hcl 100 Mg Tab) 100 mg PO [facility] Stop: 02/15/23 08:59 Last Admin: 01/16/23 08:36 Dose: 100 mg Documented By: KENYA
[2023-01-16] MEDS ORDERED: GABAPENTIN 400 MG CAP PO SCH (22:00)
[2023-01-18] MEDS ORDERED: GABAPENTIN 400 MG CAP PO SCH
[2023-01-19] MEDS ORDERED: GABAPENTIN 400 MG CAP PO SCH (12:00)
== END 2023-01-16 12:06 | disposition home or self-care (01) ==
LOC: 3N 11:07 → ASU 11:07
DX: Y83.1 Surgical operation with implant of artificial internal device as the cause of abnormal reaction of the patient, or of later complication, without mention of misadventure at the time of the procedure; J44.9 Chronic obstructive pulmonary disease, unspecified; F17.210 Nicotine dependence, cigarettes, uncomplicated; Z79.899 Other long term (current) drug therapy; F10.10 Alcohol abuse, uncomplicated; T84.84XA Pain due to internal orthopedic prosthetic devices, implants and grafts, initial encounter